=== PATIENT | female | born 1995 | race Hispanic/Latino ===

== ENCOUNTER 2019-01-23 21:17 | Emergency (ER) | payer OTHER ==
[2019-01-23 23:06] LABS: Urine Blood 2+ (NEG); Urine Glucose NEGATIVE (NEG); Urine Protein 1+ (NEG); Urine Specific Gravity 1.025 (1.005-1.030)
[2019-01-23] MEDS ORDERED: ONDANSETRON 4 MG/2 ML VIAL ONE (23:07)
[2019-01-23] MEDS ORDERED: NA CHLORIDE 0.9% 1,000 ML ONE (23:08)
[2019-01-23 23:10] LABS: Absolute Lymphocytes (CBC) 1.1 K/uL (0.7-4.9); Absolute Monocytes 0.6 K/uL (0.1-1.3); Absolute Neutrophil 4.3 K/uL (1.8-8.0); Basophils % 0.3 % (0-1.3); Eosinophils % 0.6 % (0-4.4); Hematocrit 45.5 % (36.0-45.0); Lymphocytes % 17.6 % (15.3-44.8); RBC Red Blood Cell Count 4.87 M/uL (3.86-4.86)
[2019-01-23 23:27] LABS: ALT/SGPT 31 U/L (12-78); AST/SGOT 35 U/L (15-37); Albumin 3.6 g/dL (3.4-5.0); Alkaline Phosphatase 114 U/L (45-117); BUN Blood Urea Nitrogen 12 mg/dL (7-18); Bicarbonate 27 mmol/L (21-32); Bilirubin Direct 0.1 mg/dL (0-0.2); Bilirubin Total 0.4 mg/dL (0.2-1.0); Glucose Level 89 mg/dL (74-106); Lipase 162 U/L (73-393); Potassium 3.6 mmol/L (3.5-5.1); Protein, Total 8.1 g/dL (6.4-8.2); Sodium Level 139 mmol/L (136-145)
[2019-01-23] MEDS ORDERED: DICYCLOMINE HCL 10 MG CAP ONE (23:58)
--- NOTE | 2019-01-24 00:15 | EDPHYS ---
Physician Documentation [facility] Name: Negar Bell Age: 24 yrs Sex: Female : 1995 Arrival Date: 01/23/2019 Time: 21:21 Bed 30 Private MD: ED Physician Vin Manjarrez HPI: 01/24 00:19 This 24 yrs old Female presents to ER via Ambulatory with complaints of kb Vomiting. 00:19 The patient presents to the emergency department with nausea, vomiting, diarrhea, kb abdominal pain. Onset: The symptoms/episode began/occurred 2 day(s) ago. Possible causes: unknown. The symptoms are aggravated by nothing. The symptoms are alleviated by nothing. Associated signs and symptoms: Pertinent positives: abdominal pain, diarrhea, nausea, vomiting. Severity of symptoms: At their worst the symptoms were moderate in the emergency department the symptoms are unchanged. The patient has not experienced similar symptoms in the past. The patient has not recently seen a physician. COUNTY ASSESSOR: 01/23 21:34 LMP 01/23/2019 aj1 Historical: - Allergies: 21:34 No Known Allergies; aj1 - Home Meds: 21:34 None [Active]; aj1 - PMHx: 21:34 None; aj1 - PSHx: 21:34 None; aj1 - Immunization history:: Flu vaccine is not up to date. - Social history:: Smoking status: Patient/guardian denies using tobacco. - Ebola Screening: : Patient denies travel to an Ebola-affected area in the 21 days before illness onset. ROS: 01/24 00:19 Constitutional: Negative for fever, chills, and weight loss, ENT: Negative for injury, kb pain, and discharge, Neck: Negative for injury, pain, and swelling, Cardiovascular: Negative for chest pain, palpitations, and edema, Respiratory: Negative for shortness of breath, cough, wheezing, and pleuritic chest pain, Back: Negative for injury and pain, : Negative for injury, bleeding, discharge, and swelling, MS/Extremity: Negative for injury and deformity, Skin: Negative for injury, rash, and discoloration, Neuro: Negative for headache, weakness, numbness, tingling, and seizure. Abdomen/GI: Positive for abdominal pain, nausea, vomiting, and diarrhea, Negative for constipation, abdominal cramps, abdominal distension, anorexia. Exam: 00:19 Constitutional: This is a well developed, well nourished patient who is awake, alert, kb and in no acute distress. Head/Face: Normocephalic, atraumatic. ENT: Nares patent. No nasal discharge, no septal abnormalities noted. Tympanic membranes are normal and external auditory canals are clear. Oropharynx with no redness, swelling, or masses, exudates, or evidence of obstruction, uvula midline. Mucous membranes moist. Neck: Trachea midline, no thyromegaly or masses palpated, and no cervical lymphadenopathy. Supple, full range of motion without nuchal rigidity, or vertebral point tenderness. No Meningismus. Chest/axilla: Normal chest wall appearance and motion. Nontender with no deformity. No lesions are appreciated. Cardiovascular: Regular rate and rhythm with a normal S1 and S2. No gallops, murmurs, or rubs. Normal PMI, no JVD. No pulse deficits. Respiratory: Lungs have equal breath sounds bilaterally, clear to auscultation and percussion. No rales, rhonchi or wheezes noted. No increased work of breathing, no retractions or nasal flaring. Skin: Warm, dry with normal turgor. Normal color with no rashes, no lesions, and no evidence of cellulitis. MS/ Extremity: Pulses equal, no cyanosis. Neurovascular intact. Full, normal range of motion. Neuro: Awake and alert, GCS 15, oriented to person, place, time, and situation. Cranial nerves II-XII grossly intact. Motor strength 5/5 in all extremities. Sensory grossly intact. Cerebellar exam normal. Normal gait. 00:19 Abdomen/GI: Inspection: abdomen appears normal, Bowel sounds: normal, in all quadrants, Palpation: soft, in all quadrants, mild abdominal tenderness, in the left upper quadrant and left lower quadrant. Vital Signs: 01/23 21:34 BP 122 / 83; Pulse 65; Resp 18; Temp 98.4; Pulse Ox 99% on R/A; Weight 58.51 kg (R); aj1 Height 5 ft. 0 in. (152.40 cm) (R); Pain 8/10; 01/24 00:30 BP 122 / 72; Pulse 68; Resp 16; Temp 98.2; Pulse Ox 99% ; rv 01/23 21:34 Body Mass Index 25.19 (58.51 kg, 152.40 cm) aj1 MDM: 01/23 22:05 Patient medically screened. kb 01/24 00:19 Data reviewed: vital signs, nurses notes. Data interpreted: Pulse oximetry: on room air kb is 99 %. Interpretation: normal. Counseling: I had a detailed discussion with the patient and/or guardian regarding: the historical points, exam findings, and any diagnostic results supporting the discharge/admit diagnosis, lab results, the need for outpatient follow up, a family practitioner, to return to the emergency department if symptoms worsen or persist or if there are any questions or concerns that arise at home. 01/23 22:33 Order name: Urine Dipstick--Ancillary (enter results); Complete Time: 23:11 mw2 01/23 22:33 Order name: Urine --Ancillary (enter results); Complete Time: 23:11 mw2 01/23 22:49 Order name: Basic Metabolic Panel; Complete Time: 23:30 kb 01/23 22:49 Order name: CBC with Diff; Complete Time: 23:13 kb 01/23 22:49 Order name: Hepatic Function; Complete Time: 23:30 kb 01/23 22:49 Order name: Lipase; Complete Time: 23:30 kb 01/23 22:49 Order name: IV Saline Lock; Complete Time: 23:06 kb 01/23 22:49 Order name: Labs collected and sent; Complete Time: 23:06 kb 01/23 23:30 Order name: PO challenge; Complete Time: 23:50 kb Administered Medications: 01/23 23:05 Drug: NS 0.9% 1000 ml Route: IV; Rate: 1000 ml; Site: right antecubital; rv 23:50 Follow up: IV Status: Completed infusion rv 23:06 Drug: Zofran 4 mg Route: IVP; Site: right antecubital; rv 23:50 Follow up: Response: Nausea is decreased rv 23:50 Drug: Bentyl 20 mg Route: PO; rv 01/24 00:30 Follow up: Response: No adverse reaction rv Disposition: 02:05 Co-signature as Attending Physician, Vin Manjarrez MD. gs Disposition: 01/24/19 00:13 Discharged to Home. Impression: Nausea and vomiting, Diarrhea, unspecified. - Condition is Stable. - Discharge Instructions: Food Choices to Help Relieve Diarrhea, Adult, Viral Gastroenteritis, Adult, [id number]. - Prescriptions for Bentyl 20 mg Oral Tablet - take 1 tablet by ORAL route every 6 hours As needed; 20 tablet. Zofran 4 mg Oral Tablet - take 1 tablet by ORAL route every 6 hours As needed; 20 tablet. - Medication Reconciliation Form, Thank You Letter, Antibiotic Education, Prescription Opioid Use form. - Follow up: Emergency Department; When: As needed; Reason: Worsening of condition. Follow up: Private Physician; When: 2 - 3 days; Reason: Recheck today's complaints, Continuance of care, Re-evaluation by your physician. Signatures: Dispatcher [employer] EDMS Larissa Trinh, KIM-C SECURITY ATTENDANT-Daniela Villalobos RN RN aj1 Vin Manjarrez MD MD gs Alberto Gamez RN RN rv Corrections: (The following items were deleted from the chart) 00:31 00:13 01/24/2019 00:13 Discharged to Home. Impression: Nausea and vomiting; Diarrhea, rv unspecified. Condition is Stable. Forms are Medication Reconciliation Form, Thank You Letter, Antibiotic Education, Prescription Opioid Use. Follow up: Emergency Department; When: As needed; Reason: Worsening of condition. Follow up: Private Physician; When: 2 - 3 days; Reason: Recheck today's complaints, Continuance of care, Re-evaluation by your physician. kb
--- NOTE | 2019-01-24 00:15 | ER ---
Nurse's Notes [facility] Name: Negar Bell Age: 24 yrs Sex: Female : 1995 Arrival Date: 01/23/2019 Time: 21:21 Bed 30 Private MD: Diagnosis: Nausea and vomiting;Diarrhea, unspecified Presentation: 01/23 21:32 Presenting complaint: Patient states: "Monday night I started having chills, but it aj1 really got bad Monday and then I ate one thing and I threw it up, and today the same thing I tried to eat little by little but I couldn't keep it down. I have a real bad stomach ache and a headache. I took ibuprofen but it didn't help" Denies fever. Transition of care: patient was not received from another setting of care. Onset of symptoms was January 21, 2018. Risk Assessment: Do you want to hurt yourself or someone else? Patient reports no desire to harm self or others. Initial Sepsis Screen: Does the patient meet any 2 criteria? No. Patient's initial sepsis screen is negative. Does the patient have a suspected source of infection? Yes: Acute abdominal pain. Care prior to arrival: None. 21:32 Method Of Arrival: Ambulatory aj1 21:32 Acuity: MURALI 3 aj1 Triage Assessment: 21:34 General: Appears in no apparent distress. comfortable, Behavior is calm, cooperative, aj1 appropriate for age. Pain: Complains of pain in epigastric area Pain currently is 8 out of 10 on a pain scale. Neuro: Level of Consciousness is awake, alert, obeys commands, Oriented to person, place, time, situation. Cardiovascular: Patient's skin is warm and dry. Respiratory: Airway is patent Respiratory effort is even, unlabored, Respiratory pattern is regular, symmetrical. GI: Reports upper abdominal pain, nausea, vomiting, Patient currently denies diarrhea. COUNCILMAN: 21:34 LMP 01/23/2019 aj1 Historical: - Allergies: 21:34 No Known Allergies; aj1 - Home Meds: 21:34 None [Active]; aj1 - PMHx: 21:34 None; aj1 - PSHx: 21:34 None; aj1 - Immunization history:: Flu vaccine is not up to date. - Social history:: Smoking status: Patient/guardian denies using tobacco. - Ebola Screening: : Patient denies travel to an Ebola-affected area in the 21 days before illness onset. Screenin:08 Abuse screen: Denies threats or abuse. Denies injuries from another. Nutritional rv screening: No deficits noted. Tuberculosis screening: No symptoms or risk factors identified. Fall Risk None identified. Assessment: 23:06 General: Appears in no apparent distress. comfortable, Behavior is calm, cooperative. rv Pain: Complains of pain in abdomen and epigastric area. Neuro: Level of Consciousness is awake, alert, obeys commands, Oriented to person, place, time, situation. Cardiovascular: Capillary refill < 3 seconds. Respiratory: Airway is patent. GI: Abdomen is flat, Reports nausea, vomiting. : No signs and/or symptoms were reported regarding the genitourinary system. EENT: No signs and/or symptoms were reported regarding the EENT system. Derm: Skin is intact. Musculoskeletal: No signs and/or symptoms reported regarding the musculoskeletal system. 23:51 Reassessment: Patient appears in no apparent distress at this time. Patient and/or rv family updated on plan of care and expected duration. Pain level reassessed. Patient is alert/active/playful, equal unlabored respirations, skin warm/dry/pink. PO CHALLENGE TOLERATED. Patient states feeling better. Patient states symptoms have improved. Vital Signs: 21:34 BP 122 / 83; Pulse 65; Resp 18; Temp 98.4; Pulse Ox 99% on R/A; Weight 58.51 kg (R); aj1 Height 5 ft. 0 in. (152.40 cm) (R); Pain 8/10; 01/24 00:30 BP 122 / 72; Pulse 68; Resp 16; Temp 98.2; Pulse Ox 99% ; rv 01/23 21:34 Body Mass Index 25.19 (58.51 kg, 152.40 cm) aj1 ED Course: 01/23 21:21 Patient arrived in ED. es 21:33 Larissa Trinh FNP-C is PHCP. kb 21:33 Vin Manjarrez MD is Attending Physician. kb 21:34 Triage completed. aj1 21:34 Arm band placed on Patient placed in waiting room, Patient notified of wait time. aj1 22:36 Alberto Gamez, RN is Primary Nurse. rv 23:00 Inserted saline lock: 20 gauge in right antecubital area, using aseptic technique. rv Blood collected. 23:08 Patient has correct armband on for positive identification. Bed in low position. Call rv light in reach. Side rails up X 1. Adult w/ patient. Pulse ox on. NIBP on. 01/24 00:31 No provider procedures requiring assistance completed. IV discontinued, intact, rv bleeding controlled, No redness/swelling at site. Pressure dressing applied. Administered Medications: 01/23 23:05 Drug: NS 0.9% 1000 ml Route: IV; Rate: 1000 ml; Site: right antecubital; rv 23:50 Follow up: IV Status: Completed infusion rv 23:06 Drug: Zofran 4 mg Route: IVP; Site: right antecubital; rv 23:50 Follow up: Response: Nausea is decreased rv 23:50 Drug: Bentyl 20 mg Route: PO; rv 01/24 00:30 Follow up: Response: No adverse reaction rv Outcome: 00:13 Discharge ordered by . kb 00:31 Discharged to home ambulatory. rv 00:31 Condition: improved 00:31 Discharge instructions given to patient, family, Instructed on discharge instructions, follow up and referral plans. medication usage, Demonstrated understanding of instructions, follow-up care, medications, Prescriptions given X 2. 00:31 Patient left the ED. rv Signatures: Larissa Trinh, GEOSCIENCES PROFESSOR-C GEOSCIENCES PROFESSOR-Daniela Villalobos, RN RN ajRosa Maria Davis Ronaldo, RN RN rv
== END 2019-01-24 00:31 | disposition home or self-care (01) ==
LOC: ER 21:17
DX: R11.2 Nausea with vomiting, unspecified (principal); R19.7 Diarrhea, unspecified
CPT/HCPCS: 36415; 80048; 80076; 81003; 81025; 83690; 85025; 96361; 96374; 99284; J2405; J7030

== ENCOUNTER 2021-04-06 19:53 | Emergency (ER) | payer OTHER ==
--- OUTSIDE RECORDS SUMMARY | 2021-04-06 19:55 | XMS REPORT | Continuity of Care Document ---
:1995 Author Organization [facility] t Address [address] [place] [address] Care Team Providers Name Role Phone Carlos ORTIZ Attending Clinician Omid Loyd MD Attending Clinician Silvio PERSON Attending Clinician Ultrasound, M[facility] Attending Clinician Unavailable Silvio PERSON Admitting Clinician Problems This patient has no known problems. Allergies, Adverse Reactions, Alerts This patient has no known allergies or adverse reactions. Medications This patient has no known medications. Procedures This patient has no known procedures. Encounters Start End Encounter Admission Attending Care Care Encounter Source Date/Time Date/Time Type Type Clinicians Facility Department ID 2021-03-31 2021-03-31 Routine KIRBY Gonzalez [id number] 11:13:34 12:14:41 Anna Marie Lubin [id number] Visit [place] [id number] [facility] [phone] [address] 2021-03-29 2021-03-29 Hospital Leigh Loyd [facility] [id number] 13:54:00 16:10:00 Encounter Pratima Anguiano [id number] [place] [id number] [place] [id number] [facility] 2021-03-29 2021-03-29 Telephone Leigh Loyd [facility] [id number] 00:00:00 00:00:00 [place] [id number] [place] [id number] [facility] [phone] [address] 2021-03-18 2021-03-18 Public Relations Account Executive Ultrasound, [facility] [id number] 09:58:42 10:28:42 Visit Adc [facility] [place] [id number] [place] [id number] [facility] [phone] [address] 2021-03-17 2021-03-17 Routine Loyd, Leigh [facility] [id number] 15:29:16 16:15:59 [place] [id number] Visit [place] [id number] [facility] [phone] [address] 2021-03-03 2021-03-03 Routine [place], [facility] [id number] 12:59:15 13:33:49 Anna Marie [place] [id number] Visit [place] [id number] [facility] [phone] [address] Results This patient has no known results.
--- NOTE | 2021-04-06 22:12 | EDPHYS ---
Physician Documentation [facility] Name: Negar Bell Age: 26 yrs Sex: Female : 1995 Arrival Date: 04/06/2021 Time: 19:56 Bed External Waiting Private MD: ED Physician MDM: 04/06 20:11 Patient medically screened. rn 20:13 ED course: Pt taken to L\T\D given 39 weeks and for monitoring.. rn Administered Medications: No medications were administered Disposition Summary: 04/06/21 22:11 Eloped Disposition: Before Triage bb Reason: (see nurse's notes) bb Signatures: Iwona Hughes RN RN bb Kevin Agarwal MD MD rn
--- NOTE | 2021-04-06 22:12 | ER ---
Nurse's Notes [facility] Name: Negar Bell Age: 26 yrs Sex: Female : 1995 Arrival Date: 04/06/2021 Time: 19:56 Bed External Waiting Private MD: Diagnosis: Presentation: 04/06 20:15 Note pt sent to L\T\D. bb ED Course: 19:56 Patient arrived in ED. ag3 20:11 Kevin Agarwal MD is Attending Physician. rn 20:20 Jay Viramontes PA is PHCP. cp 20:20 Kevin Agarwal MD is Attending Physician. cp Administered Medications: No medications were administered Outcome: 22:11 Patient left the ED. bb Signatures: Iwona Hughes RN RN Kevin Ku MD MD rn Page, Corey, PA PA cp Glenis Fatima ag3
== END 2021-04-06 22:11 | disposition left against medical advice (07) ==
LOC: ER 19:53
DX: Z02.9 Encounter for administrative examinations, unspecified (principal)

== ENCOUNTER → 2023-09-07 | Emergency (ER) | payer OTHER, SELFPAY ==
[~2023-09-07] MED LIST: ACETAMINOPHEN 500 MG TAB ONE; NA CHLORIDE 0.9% 1,000 ML ONE
--- OUTSIDE RECORDS SUMMARY | 2023-09-07 19:23 | XMS REPORT | Continuity of Care Document ---
Author Name Unknown Address [address] [facility] [address] [place] [address] [facility] Address [address] [facility] [address] [place] [address] Care Team Providers Care Body Service Team Member Name Role Phone Pcp, Patient Does Not Have A Primary Care Physic bill GLADYS KIMBALL Attending Clinician Unavailable Anna Marie Houston PA-C Attending Clinician [phone] ANNA MARIE HOUSTON Attending Clinician Unavailable Gladys Kimball MD Attending Clinician [phone] [facility] Attending Clinician Unavailable Doctor Unassigned, [place] Attending Clinician U álvaroailLINDSAY Pack Attending Clinician UnavailLINDSAY Lord Attending Clinician Unavailcasie garcía 2, [facility] Attending Clinician Unavailable Ultrasound, [facility] Attending Clinician Unavaila ricky Ma MD, Carpio Attending Clinician + GREGG BARR Attending Clinician Unafranchesca Don RN, Beverley Delarosa Attending Clinician Unavailab JUAN Woodard Attending Clinician Unavailable Juan Moreno Attending Clinician [phone] Ultrasound, [facility] Attending Clinician UnavailBoubacar Mishra MD Attending Clinician [phone] BOUBACAR MCCARTHY Attending Clinician Unavailable Pob, [facility] Main Attending Clinician Unavailabl e Jimbo Anguiano MD Attending Clinician [phone] JIMBO ANGUIANO Attending Clinician Unavailable YOHANNES BURRELL Attending Clinician Unavailable Yohannes Manzanares Attending Clinician [phone] Georgiana Roberts MD, Leonard Attending Clinician [phone] Gayathri Pablo MD Attending Clinician [phone] Clementine Hare MD Attending Clinician GLADYS KIMBALL Admitting Clinician Unavailable JIMBO ANGUIANO Admitting Clinician Unavailable Gladys Kimball MD Admitting Clinician [phone] YOHANNES BURRELL Admitting Clinician Unavailable Jimbo Anguiano MD Admitting Clinician [phone] Payers Payer Name Policy Type Policy Number Effective Date Expirati on Date Source [facility] [id number] 2020 00:00:00 CIG[employer] II [id number] 2020 00:00:00 MEDICAID [place] [id number] 2020 00:00:00 Problems Condition Name Condition Details Condition Category Status Onset Date Resolution Date Last Treatment Date Treating Clinician Comments Source Normal labor Normal labor Disease Active 5-15 00:00: 00 [facility] Upper respirator y tract infection, unspecifie d type Upper respirator y tract infection, unspecifie d type Disease Active 3-23 00:00: 00 [facility] Acute bilateral low back pain with left-sided sciatica Acute bilateral low back pain with left-sided sciatica Disease Active 2021-09 2-06 00:00: 00 [facility] High risk , antepartum High risk , antepartum Disease Active 2021-09 0-10 00:00: 00 [facility] Nausea and vomiting during prior to 22 weeks gestation Nausea and vomiting during prior to 22 weeks gestation Disease Active 2021-09 0-10 00:00: 00 [facility] Encounter for screening for maternal depression Encounter for screening for maternal depression Disease Active 2020-09- 00:00: 00 [facility] Liveborn infant, of lombardi , born in hospital by vaginal delivery Liveborn , of lombardi , born in hospital by vaginal delivery Disease Active 8- 00:00: 00 [facility] 41 weeks gestation of 41 weeks gestation of Disease Active 8-20 00:00: 00 [facility] Obesity (BMI 30-39.9) Obesity (BMI 30-39.9) Disease Active 7-28 00:00: 00 [facility] Allergies, Adverse Reactions, Alerts Allergy Name Allergy Type Status Severity Reaction(s) Onset Date Inactive Date Treating Clinician Comments Source NO KNOWN ALLERGIE S Drug Class Active [facility] Social History Social Habit Start Date Stop Date Quantity Comments Source ASSERTION 2022-04-27 00:00:00 [facility] Exposure to SARS-CoV-2 (event) 2023-01-20 00:00:00 2023-01-30 06:12:00 Not sure [facility] History of Social function 2022-01-25 00:00:00 2022-01-25 00:00:00 [facility] Alcohol intake 2020-12-09 00:00:00 2020-12-09 00:00:00 Current drinker of alcohol (finding) [facility] Tobacco use and exposure 2020-09-23 00:00:00 2020-09-23 00:00:00 Smokeless tobacco non-user [facility] Alcohol Comment 2020-09-23 00:00:00 2020-09-23 00:00:00 Social Drinker [facility] History SDOH Alcohol Frequency 2020-09-23 00:00:00 2020-09-23 00:00:00 99 [facility] History SDOH Alcohol Std Drinks 2020-09-23 00:00:00 2020-09-23 00:00:00 99 [facility] History SDOH Alcohol Binge 2020-09-23 00:00:00 2020-09-23 00:00:00 99 [facility] Sex Assigned At 1995 00:00:00 1995 00:00:00 [facility] Smoking Status Start Date Stop Date Source Never smoked tobacco [facility] Medications Ordered Medication Name Filled Medication Name Start Date Stop Date Current Medication? Ordering Clinician Indication Dosage Frequency Signature (SIG) Comments Components Source PNV no.95/selam fum/folic ac ( ORAL) 01-30 17:09: 28 01-30 00:00 :00 No Take by mouth. [facility] rho(D) immune globulin (RHOGAM) syringe 300 mcg 01-30 10:02: 00 Yes 300ug 300 mcg, Intramuscu lar, ONCE, For 1 dose, Conditiona l, Routine [facility] witch Rafita (TUCKS) 50 % topical pad 01-30 10:01: 55 Yes Topical, Q4HPRN, Starting on Mon01/30/23 at 0501, Until Discontinu ed, Routine, rectal/hem orrhoidal pain [facility] HYDROcodone -acetaminop hen (NORCO 5) 5-325 mg tablet 1 tablet 01-30 10:01: 55 Yes 1{tbl} 1 tablet, Oral, Q6HPRN, Starting on Mon01/30/23 at 0501, Until Discontinu ed, Routine, Pain (scale 7-10) [facility] ibuprofen (IBU) tablet 600 mg 01-30 10:01: 55 Yes 600mg 600 mg, Oral, Q6HPRN, Starting on Mon01/30/23 at 0501, Until Discontinu ed, Routine, Pain (scale 4-6) [facility] acetaminoph en (TYLENOL) tablet 650 mg 01-30 10:01: 55 Yes 650mg 650 mg, Oral, Q6HPRN, Starting on Mon01/30/23 at 0501, Until Discontinu ed, Routine, Pain (scale 1-3) [facility] diphenhydrA MINE (BENADRYL) tablet 25 mg 01-30 10:01: 55 Yes 25mg 25 mg, Oral, Q6HPRN, Starting on Mon01/30/23 at 0501, Until Discontinu ed, Routine, Sleep, Itching [facility] ondansetron (ZOFRAN (PF)) injection 4 mg 01-30 10:01: 55 Yes 4mg 4 mg, Slow IV Push, Q8HPRN, Starting on Mon01/30/23 at 0501, Until Discontinu ed, Routine, Nausea and Vomiting (N/V) [facility] simethicone (GAS RELIEF (SIMETHICON E)) chewable tablet 160 mg 01-30 10:01: 55 Yes 160mg 160 mg, Oral, PC+HSPRN, Starting on Mon01/30/23 at 0501, Until Discontinu ed, Routine, Gas [facility] docusate (COLACE) capsule 200 mg 01-30 10:01: 55 Yes 200mg 200 mg, Oral, QDAILYPRN, Starting on Mon01/30/23 at 0501, Until Discontinu ed, Routine, Constipati on [facility] magnesium hydroxide (MILK OF MAGNESIA) 400 mg/5 mL suspension 30 mL 01-30 10:01: 55 Yes 30mL 30 mL, Oral, QDAILYPRN, Starting on Mon01/30/23 at 0501, Until Discontinu ed, Routine, Constipati on [facility] benzocaine- menthol (DERMOPLAST ) 20-0.5 % topical spray 01-30 10:01: 55 Yes Topical, PRN, Starting on Mon01/30/23 at 0501, Until Discontinu ed, Routine, Perineum discomfort [facility] oxytocin (PITOCIN) 30 units in NS 500 mL IV infusion 01-30 09:45: 07 01-30 10:01 :59 No 600mL/h 600 mL/hr, IV Infusion, PRN, For post delivery uterine atony., Starting on Mon01/30/[address] at 600 mL/hr for 1 hr then 150 mL/hr for 1 hr.
[facility] FENTanyl PF (SUBLIMAZE (PF)) injection 50 mcg 01-30 09:45: 00 01-30 09:36 :00 No 50ug 50 mcg, Slow IV Push, ONCE NOW, 1 dose, On Mon01/30/23 at 0445, Routine [facility] D5W-LR IV infusion 1,000 mL 01-30 08:34: 04 01-30 10:01 :59 No 1000mL at 1-125 mL/hr, IV Infusion, TITRATE, Starting on Mon01/30/23 at 0334, Until Mon01/30/23 at 0501, Routine [facility] vitamin w/FA tablet 01-30 00:00: 00 Yes [id number] 1{tbl} Take 1 tablet by mouth in the morning. [facility] docusate 100 mg capsule 01-30 00:00: 00 Yes [id number] 200mg Take 2 capsules by mouth once daily as needed for Constipati on. [facility] ferrous sulfate 325 mg (65 mg iron) tablet 01-30 00:00: 00 Yes [id number] 325mg Take 1 tablet by mouth in the morning and 1 tablet in the evening. [facility] ibuprofen 600 mg tablet 01-30 00:00: 00 Yes [id number] 600mg Take 1 tablet by mouth every 6 (six) hours as needed (Pain). Take with food or milk. [facility] vitamin w/FA tablet 01-30 00:00: 00 Yes [id number] 1{tbl} Take 1 tablet by mouth in the morning. [facility] docusate 100 mg capsule 01-30 00:00: 00 Yes [id number] 200mg Take 2 capsules by mouth once daily as needed for Constipati on. [facility] ferrous sulfate 325 mg (65 mg iron) tablet 01-30 00:00: 00 Yes [id number] 325mg Take 1 tablet by mouth in the morning and 1 tablet in the evening. [facility] ibuprofen 600 mg tablet 01-30 00:00: 00 Yes [id number] 600mg Take 1 tablet by mouth every 6 (six) hours as needed (Pain). Take with food or milk. [facility] ferrous sulfate 325 mg (65 mg iron) tablet 10 00:00: 00 Yes [id number] 325mg Take 1 tablet by mouth every morning and evening. [facility] ferrous sulfate 325 mg (65 mg iron) tablet 10 00:00: 00 Yes [id number] 325mg Take 1 tablet by mouth every morning and evening. [facility] ferrous sulfate 325 mg (65 mg iron) tablet 10 00:00: 00 Yes [id number] 325mg Take 1 tablet by mouth every morning and evening. [facility] ferrous sulfate 325 mg (65 mg iron) tablet 10 00:00: 00 01-30 00:00 :00 No [id number] 325mg Take 1 tablet by mouth every morning and evening. [facility] PNV no.95/selam us fum/folic ac ( ORAL) 01-05 14:04: 07 Yes Take by mouth. [facility] PNV no.95/selam us fum/folic ac ( ORAL) 01-05 14:04: 07 Yes Take by mouth. [facility] PNV no.95/selam us fum/folic ac ( ORAL) 01-05 14:04: 07 Yes Take by mouth. [facility] PNV no.95/selam us fum/folic ac ( ORAL) 01-05 14:04: 07 Yes Take by mouth. [facility] PNV no.95/selam us fum/folic ac ( ORAL) 01-05 14:04: 07 Yes Take by mouth. [facility] PNV no.95/selam us fum/folic ac ( ORAL) 01-05 14:04: 07 Yes Take by mouth. [facility] PNV no.95/selam us fum/folic ac ( ORAL) 01-05 14:04: 07 Yes Take by mouth. [facility] PNV no.95/selam us fum/folic ac ( ORAL) 01-05 08:51: 19 01-05 00:00 :00 No Take by mouth. [facility] FERROUS SULFATE 325 mg (65 mg iron) tablet 01-05 00:00: 00 Yes TAKE 1 TABLET BY MOUTH IN THE MORNING AND IN THE EVENING [facility] FERROUS SULFATE 325 mg (65 mg iron) tablet 01-05 00:00: 00 Yes TAKE 1 TABLET BY MOUTH IN THE MORNING AND IN THE EVENING [facility] FERROUS SULFATE 325 mg (65 mg iron) tablet 01-05 00:00: 00 Yes TAKE 1 TABLET BY MOUTH IN THE MORNING AND IN THE EVENING [facility] FERROUS SULFATE 325 mg (65 mg iron) tablet 01-05 00:00: 00 Yes TAKE 1 TABLET BY MOUTH IN THE MORNING AND IN THE EVENING [facility] FERROUS SULFATE 325 mg (65 mg iron) tablet 01-05 00:00: 00 Yes TAKE 1 TABLET BY MOUTH IN THE MORNING AND IN THE EVENING [facility] FERROUS SULFATE 325 mg (65 mg iron) tablet 01-05 00:00: 00 01-25 00:00 :00 No TAKE 1 TABLET BY MOUTH IN THE MORNING AND IN THE EVENING [facility] ferrous sulfate (IRON, FERROUS SULFATE,) 325 mg (65 mg iron) tablet 12-23 00:00: 00 Yes [id number] 325mg Take 1 tablet by mouth in the morning and 1 tablet in the evening. [facility] ferrous sulfate (IRON, FERROUS SULFATE,) 325 mg (65 mg iron) tablet 12-23 00:00: 00 Yes [id number] 325mg Take 1 tablet by mouth in the morning and 1 tablet in the evening. [facility] ferrous sulfate (IRON, FERROUS SULFATE,) 325 mg (65 mg iron) tablet 12-23 00:00: 00 01-05 00:00 :00 No [id number] 325mg Take 1 tablet by mouth in the morning and 1 tablet in the evening. [facility] PNV no.95/selam us fum/folic ac ( ORAL) 3 00:15: 50 Yes Take by mouth. [facility] PNV no.95/selam us fum/folic ac ( ORAL) 12-07 00:15: 50 Yes Take by mouth. [facility] PNV no.95/selam us fum/folic ac ( ORAL) 12-07 00:15: 50 Yes Take by mouth. [facility] PNV no.95/selam us fum/folic ac ( ORAL) 12-07 00:15: 50 Yes Take by mouth. [facility] PNV no.95/selam us fum/folic ac ( ORAL) 12-07 00:15: 50 Yes Take by mouth. [facility] PNV no.95/selam us fum/folic ac ( ORAL) 12-07 00:15: 50 Yes Take by mouth. [facility] PNV no.95/selam us fum/folic ac ( ORAL) 12-07 00:15: 50 Yes Take by mouth. [facility] PNV no.95/selam us fum/folic ac ( ORAL) 12-07 00:15: 50 Yes Take by mouth. [facility] PNV no.95/selam us fum/folic ac ( ORAL) 12-07 00:15: 50 Yes Take by mouth. [facility] PNV no.95/selam us fum/folic ac ( ORAL) 12-07 00:15: 50 Yes Take by mouth. [facility] PNV no.95/selam us fum/folic ac ( ORAL) 2021-09 11:14: 32 Yes Take by mouth. [facility] PNV no.95/selam us fum/folic ac ( ORAL) 2021-09 11:14: 32 Yes Take by mouth. [facility] PNV no.95/selam us fum/folic ac ( ORAL) 2021-09 11:14: 32 Yes Take by mouth. [facility] PNV no.95/selam us fum/folic ac ( ORAL) 2021-09 11:14: 32 Yes Take by mouth. [facility] PNV no.95/selam us fum/folic ac ( ORAL) 2021-09 11:14: 32 Yes Take by mouth. [facility] PNV no.95/selam us fum/folic ac ( ORAL) 2021-09 11:14: 32 Yes Take by mouth. [facility] PNV no.95/selam us fum/folic ac ( ORAL) 2021-09 11:14: 32 Yes Take by mouth. [facility] PNV no.95/selam us fum/folic ac ( ORAL) 2021-09 11:14: 32 Yes Take by mouth. [facility] PNV no.95/selam us fum/folic ac ( ORAL) 2021-09 11:14: 32 Yes Take by mouth. [facility] No known medications 2021-09 11:06: 11 No No known medication s [facility] No known medications 2021-09 0 22:07: 51 No No known medication s [facility] No known medications 2021-09 010 22:07: 51 No No known medication s [facility] vitamin w/FA tablet 05-10 00:00: 00 Yes [id number] 1{tbl} Take 1 tablet by mouth daily. [facility] docusate calcium 240 mg capsule 05-10 00:00: 00 Yes [id number] 240mg Take 1 capsule by mouth once daily as needed for Constipati on. [facility] ferrous sulfate 325 mg (65 mg iron) tablet 05-10 00:00: 00 Yes [id number] 325mg Take 1 tablet by mouth 2 (two) times daily. [facility] ibuprofen 600 mg tablet 05-10 00:00: 00 Yes [id number] 600mg Take 1 tablet by mouth every 6 (six) hours as needed (Pain). Take with food or milk. [facility] vitamin w/FA tablet 05-10 00:00: 00 Yes [id number] 1{tbl} Take 1 tablet by mouth daily. [facility] docusate calcium 240 mg capsule 05-10 00:00: 00 Yes [id number] 240mg Take 1 capsule by mouth once daily as needed for Constipati on. [facility] ferrous sulfate 325 mg (65 mg iron) tablet 05-10 00:00: 00 Yes [id number] 325mg Take 1 tablet by mouth 2 (two) times daily. [facility] ibuprofen 600 mg tablet 05-10 00:00: 00 Yes [id number] 600mg Take 1 tablet by mouth every 6 (six) hours as needed (Pain). Take with food or milk. [facility] vitamin w/FA tablet 05-10 00:00: 00 06-27 00:00 :00 No [id number] 1{tbl} Take 1 tablet by mouth daily. [facility] docusate calcium 240 mg capsule 05-10 00:00: 00 06-27 00:00 :00 No [id number] 240mg Take 1 capsule by mouth once daily as needed for Constipati on. [facility] ferrous sulfate 325 mg (65 mg iron) tablet 05-10 00:00: 00 06-27 00:00 :00 No [id number] 325mg Take 1 tablet by mouth 2 (two) times daily. [facility] ibuprofen 600 mg tablet 05-10 00:00: 00 06-27 00:00 :00 No [id number] 600mg Take 1 tablet by mouth every 6 (six) hours as needed (Pain). Take with food or milk. [facility] Immunizations Ordered Immunization Name Filled Immunization Name Date Status Comments Source Influenza Virus Vaccine Quad IM, Preserv and ABX Free 6 MO-64 YRS 2022-06-27 00:00:00 Completed [facility] Influenza Virus Vaccine Quad IM, Preserv and ABX Free 6 MO-64 YRS 2022-06-27 00:00:00 Completed [facility] Influenza Virus Vaccine Quad IM, Preserv and ABX Free 6 MO-64 YRS 2022-06-27 00:00:00 Completed [facility] Influenza Virus Vaccine Quad IM, Preserv and ABX Free 6 MO-64 YRS 2022-06-27 00:00:00 Completed [facility] Influenza Virus Vaccine Quad IM, Preserv and ABX Free 6 MO-64 YRS 2022-06-27 00:00:00 Completed [facility] Influenza Virus Vaccine Quad IM, Preserv and ABX Free 6 MO-64 YRS 2022-06-27 00:00:00 Completed [facility] Influenza Virus Vaccine Quad IM, Preserv and ABX Free 6 MO-64 YRS 2022-06-27 00:00:00 Completed [facility] Influenza Virus Vaccine Quad IM, Preserv and ABX Free 6 MO-64 YRS 2022-06-27 00:00:00 Completed [facility] Influenza Virus Vaccine Quad IM, Preserv and ABX Free 6 MO-64 YRS 2022-06-27 00:00:00 Completed [facility] Influenza Virus Vaccine Quad IM, Preserv and ABX Free 6 MO-64 YRS 2022-06-27 00:00:00 Completed [facility] Influenza Virus Vaccine Quad IM, Preserv and ABX Free 6 MO-64 YRS 2022-06-27 00:00:00 Completed [facility] Influenza Virus Vaccine Quad IM, Preserv and ABX Free 6 MO-64 YRS 2022-06-27 00:00:00 Completed [facility] Influenza Virus Vaccine Quad IM, Preserv and ABX Free 6 MO-64 YRS 2022-06-27 00:00:00 Completed [facility] Influenza Virus Vaccine Quad IM, Preserv and ABX Free 6 MO-64 YRS 2022-06-27 00:00:00 Completed [facility] Influenza Virus Vaccine Quad IM, Preserv and ABX Free 6 MO-64 YRS 2022-06-27 00:00:00 Completed [facility] Influenza Virus Vaccine Quad IM, Preserv and ABX Free 6 MO-64 YRS 2022-06-27 00:00:00 Completed [facility] Influenza Virus Vaccine Quad IM, Preserv and ABX Free 6 MO-64 YRS 2022-06-27 00:00:00 Completed [facility] Influenza Virus Vaccine Quad IM, Preserv and ABX Free 6 MO-64 YRS 2022-06-27 00:00:00 Completed [facility] Influenza Virus Vaccine Quad IM, Preserv and ABX Free 6 MO-64 YRS 2022-06-27 00:00:00 Completed [facility] Influenza Virus Vaccine Quad IM, Preserv and ABX Free 6 MO-64 YRS 2022-06-27 00:00:00 Completed [facility] Influenza Virus Vaccine Quad IM, Preserv and ABX Free 6 MO-64 YRS 2022-06-27 00:00:00 Completed [facility] Influenza Virus Vaccine Quad IM, Preserv and ABX Free 6 MO-64 YRS 2022-06-27 00:00:00 Completed [facility] Influenza Virus Vaccine Quad IM, Preserv and ABX Free 6 MO-64 YRS 2022-06-27 00:00:00 Completed [facility] Influenza Virus Vaccine Quad IM, Preserv and ABX Free 6 MO-64 YRS 2022-06-27 00:00:00 Completed [facility] Influenza Virus Vaccine Quad IM, Preserv and ABX Free 6 MO-64 YRS 2022-06-27 00:00:00 Completed [facility] Influenza Virus Vaccine Quad IM, Preserv and ABX Free 6 MO-64 YRS 2022-06-27 00:00:00 Completed [facility] Influenza Virus Vaccine Quad IM, Preserv and ABX Free 6 MO-64 YRS 2022-06-27 00:00:00 Completed [facility] Influenza Virus Vaccine Quad IM, Preserv and ABX Free 6 MO-64 YRS 2022-06-27 00:00:00 Completed [facility] Influenza Virus Vaccine Quad IM, Preserv and ABX Free 6 MO-64 YRS 2022-06-27 00:00:00 Completed [facility] Influenza Virus Vaccine Quad IM, Preserv and ABX Free 6 MO-64 YRS 2022-06-27 00:00:00 Completed [facility] Influenza Virus Vaccine Quad IM, Preserv and ABX Free 6 MO-64 YRS 2022-06-27 00:00:00 Completed [facility] Influenza Virus Vaccine Quad IM, Preserv and ABX Free 6 MO-64 YRS 2022-06-27 00:00:00 Completed [facility] Influenza Virus Vaccine Quad IM, Preserv and ABX Free 6 MO-64 YRS 2022-06-27 00:00:00 Completed [facility] SARS-COV-2 COVID-19 PFIZER VACCINE 2021-12-16 00:00:00 Completed [facility] SARS-COV-2 COVID-19 PFIZER VACCINE 2021-12-16 00:00:00 Completed [facility] SARS-COV-2 COVID-19 PFIZER VACCINE 2021-12-16 00:00:00 Completed [facility] SARS-COV-2 COVID-19 PFIZER VACCINE 2021-12-16 00:00:00 Completed [facility] SARS-COV-2 COVID-19 PFIZER VACCINE 2021-12-16 00:00:00 Completed [facility] SARS-COV-2 COVID-19 PFIZER VACCINE 2021-12-16 00:00:00 Completed [facility] SARS-COV-2 COVID-19 PFIZER VACCINE 2021-12-16 00:00:00 Completed [facility] SARS-COV-2 COVID-19 PFIZER VACCINE 2021-12-16 00:00:00 Completed [facility] SARS-COV-2 COVID-19 PFIZER VACCINE 2021-12-16 00:00:00 Completed [facility] SARS-COV-2 COVID-19 PFIZER VACCINE 2021-12-16 00:00:00 Completed [facility] SARS-COV-2 COVID-19 PFIZER VACCINE 2021-12-16 00:00:00 Completed [facility] SARS-COV-2 COVID-19 PFIZER VACCINE 2021-12-16 00:00:00 Completed [facility] SARS-COV-2 COVID-19 PFIZER VACCINE 2021-12-16 00:00:00 Completed [facility] SARS-COV-2 COVID-19 PFIZER VACCINE 2021-12-16 00:00:00 Completed [facility] SARS-COV-2 COVID-19 PFIZER VACCINE 2021-12-16 00:00:00 Completed [facility] SARS-COV-2 COVID-19 PFIZER VACCINE 2021-12-16 00:00:00 Completed [facility] SARS-COV-2 COVID-19 PFIZER VACCINE 2021-12-16 00:00:00 Completed [facility] SARS-COV-2 COVID-19 PFIZER VACCINE 2021-12-16 00:00:00 Completed [facility] SARS-COV-2 COVID-19 PFIZER VACCINE 2021-12-16 00:00:00 Completed [facility] SARS-COV-2 COVID-19 PFIZER VACCINE 2021-12-16 00:00:00 Completed [facility] SARS-COV-2 COVID-19 PFIZER VACCINE 2021-12-16 00:00:00 Completed [facility] SARS-COV-2 COVID-19 PFIZER VACCINE 2021-12-16 00:00:00 Completed [facility] SARS-COV-2 COVID-19 PFIZER VACCINE 2021-12-16 00:00:00 Completed [facility] SARS-COV-2 COVID-19 PFIZER VACCINE 2021-12-16 00:00:00 Completed [facility] SARS-COV-2 COVID-19 PFIZER VACCINE 2021-12-16 00:00:00 Completed [facility] SARS-COV-2 COVID-19 PFIZER VACCINE 2021-12-16 00:00:00 Completed [facility] SARS-COV-2 COVID-19 PFIZER VACCINE 2021-12-16 00:00:00 Completed [facility] SARS-COV-2 COVID-19 PFIZER VACCINE 2021-12-16 00:00:00 Completed [facility] SARS-COV-2 COVID-19 PFIZER VACCINE 2021-12-16 00:00:00 Completed [facility] SARS-COV-2 COVID-19 PFIZER VACCINE 2021-12-16 00:00:00 Completed [facility] SARS-COV-2 COVID-19 PFIZER VACCINE 2021-12-16 00:00:00 Completed [facility] SARS-COV-2 COVID-19 PFIZER VACCINE 2021-12-16 00:00:00 Completed [facility] SARS-COV-2 COVID-19 PFIZER VACCINE 2021-12-16 00:00:00 Completed [facility] SARS-COV-2 COVID-19 PFIZER VACCINE 2021-12-16 00:00:00 Completed [facility] SARS-COV-2 COVID-19 PFIZER VACCINE 2021-12-16 00:00:00 Completed [facility] SARS-COV-2 COVID-19 PFIZER VACCINE 2021-11-19 00:00:00 Completed [facility] SARS-COV-2 COVID-19 PFIZER VACCINE 2021-11-19 00:00:00 Completed [facility] SARS-COV-2 COVID-19 PFIZER VACCINE 2021-11-19 00:00:00 Completed [facility] SARS-COV-2 COVID-19 PFIZER VACCINE 2021-11-19 00:00:00 Completed [facility] SARS-COV-2 COVID-19 PFIZER VACCINE 2021-11-19 00:00:00 Completed [facility] SARS-COV-2 COVID-19 PFIZER VACCINE 2021-11-19 00:00:00 Completed [facility] SARS-COV-2 COVID-19 PFIZER VACCINE 2021-11-19 00:00:00 Completed [facility] SARS-COV-2 COVID-19 PFIZER VACCINE 2021-11-19 00:00:00 Completed [facility] SARS-COV-2 COVID-19 PFIZER VACCINE 2021-11-19 00:00:00 Completed [facility] SARS-COV-2 COVID-19 PFIZER VACCINE 2021-11-19 00:00:00 Completed [facility] SARS-COV-2 COVID-19 PFIZER VACCINE 2021-11-19 00:00:00 Completed [facility] SARS-COV-2 COVID-19 PFIZER VACCINE 2021-11-19 00:00:00 Completed [facility] SARS-COV-2 COVID-19 PFIZER VACCINE 2021-11-19 00:00:00 Completed [facility] SARS-COV-2 COVID-19 PFIZER VACCINE 2021-11-19 00:00:00 Completed [facility] SARS-COV-2 COVID-19 PFIZER VACCINE 2021-11-19 00:00:00 Completed [facility] SARS-COV-2 COVID-19 PFIZER VACCINE 2021-11-19 00:00:00 Completed [facility] SARS-COV-2 COVID-19 PFIZER VACCINE 2021-11-19 00:00:00 Completed [facility] SARS-COV-2 COVID-19 PFIZER VACCINE 2021-11-19 00:00:00 Completed [facility] SARS-COV-2 COVID-19 PFIZER VACCINE 2021-11-19 00:00:00 Completed [facility] SARS-COV-2 COVID-19 PFIZER VACCINE 2021-11-19 00:00:00 Completed [facility] SARS-COV-2 COVID-19 PFIZER VACCINE 2021-11-19 00:00:00 Completed [facility] SARS-COV-2 COVID-19 PFIZER VACCINE 2021-11-19 00:00:00 Completed [facility] SARS-COV-2 COVID-19 PFIZER VACCINE 2021-11-19 00:00:00 Completed [facility] SARS-COV-2 COVID-19 PFIZER VACCINE 2021-11-19 00:00:00 Completed [facility] SARS-COV-2 COVID-19 PFIZER VACCINE 2021-11-19 00:00:00 Completed [facility] SARS-COV-2 COVID-19 PFIZER VACCINE 2021-11-19 00:00:00 Completed [facility] SARS-COV-2 COVID-19 PFIZER VACCINE 2021-11-19 00:00:00 Completed [facility] SARS-COV-2 COVID-19 PFIZER VACCINE 2021-11-19 00:00:00 Completed [facility] SARS-COV-2 COVID-19 PFIZER VACCINE 2021-11-19 00:00:00 Completed [facility] SARS-COV-2 COVID-19 PFIZER VACCINE 2021-11-19 00:00:00 Completed [facility] SARS-COV-2 COVID-19 PFIZER VACCINE 2021-11-19 00:00:00 Completed [facility] SARS-COV-2 COVID-19 PFIZER VACCINE 2021-11-19 00:00:00 Completed [facility] SARS-COV-2 COVID-19 PFIZER VACCINE 2021-11-19 00:00:00 Completed [facility] SARS-COV-2 COVID-19 PFIZER VACCINE 2021-11-19 00:00:00 Completed [facility] SARS-COV-2 COVID-19 PFIZER VACCINE 2021-11-19 00:00:00 Completed [facility] TDAP 2021-03-03 00:00:00 Completed [facility] TDAP 2021-03-03 00:00:00 Completed [facility] TDAP 2021-03-03 00:00:00 Completed [facility] TDAP 2021-03-03 00:00:00 Completed [facility] TDAP 2021-03-03 00:00:00 Completed [facility] TDAP 2021-03-03 00:00:00 Completed [facility] TDAP 2021-03-03 00:00:00 Completed [facility] TDAP 2021-03-03 00:00:00 Completed [facility] TDAP 2021-03-03 00:00:00 Completed [facility] TDAP 2021-03-03 00:00:00 Completed [facility] TDAP 2021-03-03 00:00:00 Completed [facility] TDAP 2021-03-03 00:00:00 Completed [facility] TDAP 2021-03-03 00:00:00 Completed [facility] TDAP 2021-03-03 00:00:00 Completed [facility] TDAP 2021-03-03 00:00:00 Completed [facility] TDAP 2021-03-03 00:00:00 Completed [facility] TDAP 2021-03-03 00:00:00 Completed [facility] TDAP 2021-03-03 00:00:00 Completed [facility] TDAP 2021-03-03 00:00:00 Completed [facility] TDAP 2021-03-03 00:00:00 Completed [facility] TDAP 2021-03-03 00:00:00 Completed [facility] TDAP 2021-03-03 00:00:00 Completed [facility] TDAP 2021-03-03 00:00:00 Completed [facility] TDAP 2021-03-03 00:00:00 Completed [facility] TDAP 2021-03-03 00:00:00 Completed [facility] TDAP 2021-03-03 00:00:00 Completed [facility] TDAP 2021-03-03 00:00:00 Completed [facility] TDAP 2021-03-03 00:00:00 Completed [facility] TDAP 2021-03-03 00:00:00 Completed [facility] TDAP 2021-03-03 00:00:00 Completed [facility] TDAP 2021-03-03 00:00:00 Completed [facility] TDAP 2021-03-03 00:00:00 Completed [facility] TDAP 2021-03-03 00:00:00 Completed [facility] TDAP 2021-03-03 00:00:00 Completed [facility] TDAP 2021-03-03 00:00:00 Completed [facility] Influenza Virus Vaccine Quad .5 mL IM 6+ MO 2020-09-23 00:00:00 Completed [facility] Influenza Virus Vaccine Quad .5 mL IM 6+ MO 2020-09-23 00:00:00 Completed [facility] Influenza Virus Vaccine Quad .5 mL IM 6+ MO 2020-09-23 00:00:00 Completed [facility] Influenza Virus Vaccine Quad .5 mL IM 6+ MO 2020-09-23 00:00:00 Completed [facility] Influenza Virus Vaccine Quad .5 mL IM 6+ MO 2020-09-23 00:00:00 Completed [facility] Influenza Virus Vaccine Quad .5 mL IM 6+ MO 2020-09-23 00:00:00 Completed [facility] Influenza Virus Vaccine Quad .5 mL IM 6+ MO 2020-09-23 00:00:00 Completed [facility] Influenza Virus Vaccine Quad .5 mL IM 6+ MO 2020-09-23 00:00:00 Completed [facility] Influenza Virus Vaccine Quad .5 mL IM 6+ MO 2020-09-23 00:00:00 Completed [facility] Influenza Virus Vaccine Quad .5 mL IM 6+ MO 2020-09-23 00:00:00 Completed [facility] Influenza Virus Vaccine Quad .5 mL IM 6+ MO 2020-09-23 00:00:00 Completed [facility] Influenza Virus Vaccine Quad .5 mL IM 6+ MO 2020-09-23 00:00:00 Completed [facility] Influenza Virus Vaccine Quad .5 mL IM 6+ MO 2020-09-23 00:00:00 Completed [facility] Influenza Virus Vaccine Quad .5 mL IM 6+ MO 2020-09-23 00:00:00 Completed [facility] Influenza Virus Vaccine Quad .5 mL IM 6+ MO 2020-09-23 00:00:00 Completed [facility] Influenza Virus Vaccine Quad .5 mL IM 6+ MO 2020-09-23 00:00:00 Completed [facility] Influenza Virus Vaccine Quad .5 mL IM 6+ MO 2020-09-23 00:00:00 Completed [facility] Influenza Virus Vaccine Quad .5 mL IM 6+ MO 2020-09-23 00:00:00 Completed [facility] Influenza Virus Vaccine Quad .5 mL IM 6+ MO 2020-09-23 00:00:00 Completed [facility] Influenza Virus Vaccine Quad .5 mL IM 6+ MO 2020-09-23 00:00:00 Completed [facility] Influenza Virus Vaccine Quad .5 mL IM 6+ MO 2020-09-23 00:00:00 Completed [facility] Influenza Virus Vaccine Quad .5 mL IM 6+ MO 2020-09-23 00:00:00 Completed [facility] Influenza Virus Vaccine Quad .5 mL IM 6+ MO 2020-09-23 00:00:00 Completed [facility] Influenza Virus Vaccine Quad .5 mL IM 6+ MO 2020-09-23 00:00:00 Completed [facility] Influenza Virus Vaccine Quad .5 mL IM 6+ MO 2020-09-23 00:00:00 Completed [facility] Influenza Virus Vaccine Quad .5 mL IM 6+ MO 2020-09-23 00:00:00 Completed [facility] Influenza Virus Vaccine Quad .5 mL IM 6+ MO 2020-09-23 00:00:00 Completed [facility] Influenza Virus Vaccine Quad .5 mL IM 6+ MO 2020-09-23 00:00:00 Completed [facility] Influenza Virus Vaccine Quad .5 mL IM 6+ MO 2020-09-23 00:00:00 Completed [facility] Influenza Virus Vaccine Quad .5 mL IM 6+ MO 2020-09-23 00:00:00 Completed [facility] Influenza Virus Vaccine Quad .5 mL IM 6+ MO 2020-09-23 00:00:00 Completed [facility] Influenza Virus Vaccine Quad .5 mL IM 6+ MO 2020-09-23 00:00:00 Completed [facility] Influenza Virus Vaccine Quad .5 mL IM 6+ MO 2020-09-23 00:00:00 Completed [facility] Influenza Virus Vaccine Quad .5 mL IM 6+ MO 2020-09-23 00:00:00 Completed [facility] Influenza Virus Vaccine Quad .5 mL IM 6+ MO 2020-09-23 00:00:00 Completed [facility] Influenza Virus Vaccine Quad .5 mL IM 6+ MO (FLUZONE/FLULAVAL/F LUARIX) Unknown Completed [facility] Vital Signs Vital Name Observation Time Observation Value Comments S ource Systolic blood pressure 2023-02-27 18:06:00 111 mm[Hg] [facility] Diastolic blood pressure 2023-02-27 18:06:00 73 mm[Hg] [facility] Heart rate 2023-02-27 18:06:00 59 /[facility] Body temperature 2023-02-27 18:06:00 36.72 Tali [facility] Respiratory rate 2023-02-27 18:06:00 18 /min [facility] Body height 2023-02-27 18:06:00 149.9 cm [facility] acute [facility] Body weight 2023-02-27 18:06:00 61.689 kg [facility] acute hospital BMI 2023-02-27 18:06:00 27.47 kg/m2 [facility] acute hospital Systolic blood pressure 2023-01-31 09:20:00 108 mm[Hg] [facility] Diastolic blood pressure 2023-01-31 09:20:00 70 mm[Hg] [facility] Heart rate 2023-01-31 09:20:00 60 /min [facility] Body temperature 2023-01-31 09:20:00 36.67 Tali [facility] Respiratory rate 2023-01-31 09:20:00 18 /min [facility] Oxygen saturation in Arterial blood by Pulse oximetry 2023-01-31 09:20:00 100 /min [facility] Body height 2023-01-30 11:14:00 149.9 cm [facility] acute hospital Body weight 2023-01-30 11:14:00 68.765 kg [facility] acute hospital BMI 2023-01-30 11:14:00 30.62 kg/m2 [facility] acute hospital Systolic blood pressure 2023-01-26 15:44:00 109 mm[Hg] [facility] Diastolic blood pressure 2023-01-26 15:44:00 71 mm[Hg] [facility] Heart rate 2023-01-26 15:44:00 80 /min [facility] Body temperature 2023-01-26 15:44:00 36.72 Tali [facility] Respiratory rate 2023-01-26 15:44:00 18 /min [facility] Body height 2023-01-26 15:44:00 149.9 cm [facility] acute hospital Body weight 2023-01-26 15:44:00 68.493 kg General acute hospital BMI 2023-01-26 15:44:00 30.50 kg/m2 [facility] acute hospital Systolic blood pressure 2023-01-23 18:22:00 110 mm[Hg] [facility] Diastolic blood pressure 2023-01-23 18:22:00 72 mm[Hg] [facility] Heart rate 2023-01-23 18:22:00 90 /min [facility] Body temperature 2023-01-23 18:22:00 36.83 Tali [facility] Respiratory rate 2023-01-23 18:22:00 18 /min [facility] Body height 2023-01-23 18:22:00 149.9 cm [facility] acute hospital Body weight 2023-01-23 18:22:00 69.582 kg General acute hospital BMI 2023-01-23 18:22:00 30.98 kg/m2 General acute hospital Oxygen saturation in Arterial blood by Pulse oximetry 2023-01-23 18:22:00 99 /min [facility] Systolic blood pressure 2023-01-19 18:48:00 111 mm[Hg] [facility] Diastolic blood pressure 2023-01-19 18:48:00 68 mm[Hg] [facility] Heart rate 2023-01-19 18:48:00 81 /min [facility] Body temperature 2023-01-19 18:48:00 36.61 Tali [facility] Respiratory rate 2023-01-19 18:48:00 18 /min [facility] Body height 2023-01-19 18:48:00 149.9 cm [facility] acute hospital Body weight 2023-01-19 18:48:00 69.037 kg General acute hospital BMI 2023-01-19 18:48:00 30.74 kg/m2 General acute hospital Oxygen saturation in Arterial blood by Pulse oximetry 2023-01-19 18:48:00 99 /min [facility] Systolic blood pressure 2023-01-12 16:09:00 100 mm[Hg] [facility] Diastolic blood pressure 2023-01-12 16:09:00 68 mm[Hg] [facility] Heart rate 2023-01-12 16:09:00 82 /min [facility] Body temperature 2023-01-12 16:09:00 36.39 Tali [facility] Body height 2023-01-12 16:09:00 149.9 cm [facility] acute hospital Body weight 2023-01-12 16:09:00 68.312 kg General acute hospital BMI 2023-01-12 16:09:00 30.42 kg/m2 [facility] acute hospital Systolic blood pressure 2023-01-05 19:03:00 104 mm[Hg] [facility] Diastolic blood pressure 2023-01-05 19:03:00 68 mm[Hg] [facility] Heart rate 2023-01-05 19:03:00 72 /min [facility] Body temperature 2023-01-05 19:03:00 36.72 Tlai [facility] Body height 2023-01-05 19:03:00 149.9 cm [facility] Body weight 2023-01-05 19:03:00 67.858 [facility] BMI 2023-01-05 19:03:00 30[facility]22 [facility] 2022-12-29 15:41:00 115 mm[Hg] [facility] Diastolic blood pressure 2022-12-29 15:41:00 72 mm[Hg] [facility] Heart rate 2022-12-29 15:41:00 74 /min [facility] 2022-12-29 15:41:00 18 /min [facility] Body height 2022-12-29 15:41:00 149.9 cm [facility] weight 2022-12-29 15:41:00 66.679 [facility] BMI 2022-12-29 15:41:00 29.69 kg/m2 [facility] Systolic blood pressure 2022-12-22 15:39:00 109 mm[Hg] [facility] Diastolic blood pressure 2022-12-22 15:39:00 72 mm[Hg] [facility] Heart rate 2022-12-22 15:39:00 67 /min [facility] Body temperature 2022-12-22 15:39:00 37.06 Tali [facility] Body height 2022-12-22 15:39:00 149.9 cm [facility] Body weight 2022-12-22 15:39:00 66.679 [facility] 2022-12-22 15:39:00 29.69 kg/m2 [facility] Systolic blood pressure 2022-12-08 15:43:00 119 mm[Hg] [facility] Diastolic blood pressure 2022-12-08 15:43:00 78 mm[Hg] [facility] Heart rate 2022-12-08 15:43:00 125 /min [facility] 2022-12-08 15:43:00 36.83 Tali [facility] Respiratory rate 2022-12-08 15:43:00 18 /min [facility] Body height 2022-12-08 15:43:00 151.1 cm [facility] acute hospital Body weight 2022-12-08 15:43:00 65.681 kg General acute hospital BMI 2022-12-08 15:43:00 28.76 kg/m2 [facility] acute hospital Systolic blood pressure 2022-12-08 16:44:00 114 mm[Hg] [facility] Diastolic blood pressure 2022-12-08 16:44:00 75 mm[Hg] [facility] Heart rate 2022-12-08 16:44:00 116 /min [facility] Body temperature 2022-12-08 16:44:00 36.44 Tali [facility] Respiratory rate 2022-12-08 16:44:00 22 /min [facility] Body height 2022-12-08 16:44:00 149.9 cm General acute hospital Body weight 2022-12-08 16:44:00 67.132 kg General acute hospital BMI 2022-12-08 16:44:00 29.89 kg/m2 General acute hospital Oxygen saturation in Arterial blood by Pulse oximetry 2022-12-08 16:44:00 99 /min [facility] Heart rate 2022-12-07 03:52:00 74 /min [facility] Body temperature 2022-12-07 03:52:00 36.22 Tali [facility] Respiratory rate 2022-12-07 03:52:00 18 /min [facility] Body height 2022-12-07 03:52:00 149.9 cm General acute hospital Body weight 2022-12-07 03:52:00 67.132 kg General acute hospital BMI 2022-12-07 03:52:00 29.89 kg/m2 General acute hospital Oxygen saturation in Arterial blood by Pulse oximetry 2022-12-07 03:52:00 100 /min [facility] Systolic blood pressure 2022-12-07 03:41:00 130 mm[Hg] [facility] Diastolic blood pressure 2022-12-07 03:41:00 92 mm[Hg] [facility] Systolic blood pressure 2022-11-24 15:29:00 102 mm[Hg] [facility] Diastolic blood pressure 2022-11-24 15:29:00 68 mm[Hg] [facility] Heart rate 2022-11-24 15:29:00 74 /min [facility] Body temperature 2022-11-24 15:29:00 36.56 Tali [facility] Respiratory rate 2022-11-24 15:29:00 18 /min [facility] Body height 2022-11-24 15:29:00 149.9 cm General acute hospital Body weight 2022-11-24 15:29:00 65.318 kg General acute hospital BMI 2022-11-24 15:29:00 29.08 kg/m2 Univ [facility] Systolic blood pressure 2022-10-27 22:50:00 99 mm[Hg] [facility] Diastolic blood pressure 2022-10-27 22:50:00 63 mm[Hg] [facility] Heart rate 2022-10-27 22:50:00 59 /min [facility] Body temperature 2022-10-27 22:50:00 36.72 Tali [facility] Respiratory rate 2022-10-27 22:50:00 18 /min [facility] Body height 2022-10-27 22:50:00 149.9 cm [facility] acute hospital Body weight 2022-10-27 22:50:00 63.05 kg General acute hospital BMI 2022-10-27 22:50:00 28.07 kg/m2 General acute hospital Systolic blood pressure 2022-09-21 22:46:00 106 mm[Hg] [facility] Diastolic blood pressure 2022-09-21 22:46:00 67 mm[Hg] [facility] Heart rate 2022-09-21 22:46:00 84 /min [facility] Body temperature 2022-09-21 22:46:00 37.06 Tali [facility] Respiratory rate 2022-09-21 22:46:00 18 /min [facility] Body height 2022-09-21 22:46:00 149.9 cm Univ [facility] Body weight 2022-09-21 22:46:00 60.328 kg Univ [facility] BMI 2022-09-21 22:46:00 26.86 [facility] pressure 2022-08-23 20:21:00 101 mm[Hg] [place] [facility] Diastolic blood pressure 2022-08-23 20:21:00 65 mm[Hg] [facility] Heart rate 2022-08-23 20:21:00 60 /min [facility] Body temperature 2022-08-23 20:21:00 36.5 Tali [facility] Body height 2022-08-23 20:21:00 149.9 cm Univ [facility] Body weight 2022-08-23 20:21:00 56.518 kg Univ [facility] BMI 2022-08-23 20:21:00 25.17 kg/m2 Univ [facility] Systolic blood pressure 2022-07-26 17:13:00 99 mm[Hg] [facility] Diastolic blood pressure 2022-07-26 17:13:00 63 mm[Hg] [facility] Heart rate 2022-07-26 17:13:00 61 /min [facility] Body temperature 2022-07-26 17:13:00 36.5 Tali [facility] Body height 2022-07-26 17:13:00 149.9 cm [facility] 2022-07-26 17:13:00 54.885 kg Univ [facility] BMI 2022-07-26 17:13:00 24.44 kg/m2 Univ [facility] Diastolic blood pressure 2022-06-27 17:05:00 69 mm[Hg] [facility] Heart rate 2022-06-27 17:05:00 66 /min [facility] Body temperature 2022-06-27 17:05:00 36.67 Tali [facility] Respiratory rate 2022-06-27 17:05:00 16 /min [facility] Body height 2022-06-27 17:05:00 149.9 cm [facility] acute hospital Body weight 2022-06-27 17:05:00 53.978 kg General acute hospital BMI 2022-06-27 17:05:00 24.04 kg/m2 [facility] acute hospital Systolic blood pressure 2022-06-27 17:05:00 106 mm[Hg] [facility] Systolic blood pressure 2022-01-25 20:36:00 98 mm[Hg] [facility] Diastolic blood pressure 2022-01-25 20:36:00 67 mm[Hg] [facility] Heart rate 2022-01-25 20:36:00 64 /min [facility] Body temperature 2022-01-25 20:36:00 37 Tali [facility] Respiratory rate 2022-01-25 20:36:00 18 /min [facility] Body height 2022-01-25 20:36:00 149.9 cm [facility] acute hospital Body weight 2022-01-25 20:36:00 54.885 kg General acute hospital BMI 2022-01-25 20:36:00 24.44 kg/m2 General acute hospital Procedures Procedure Date / Time Performed Performing Clinician Source CBC WITH DIFF 2023-01-31 09:17:[address] [facility] CBC WITH DIFF 2023-01-30 08:37:00 Rehana [facility] HEPATITIS B SURFACE ANTIGEN 2023-01-30 08:37:00 Gladys [facility]ball [facility] HB ABO GROUPING 2023-01-30 08:37:00 Gladys Kimball [facility] RHO (D) IMMUNE GLOBULIN 2023-01-30 08:37:00 Rehana [facility] ADC ONLY - FERN TEST 2023-01-30 08:37:00 Gladys Kimball [facility] ADC OR [facility] ONLY - RPR 2023-01-30 08:37:00 Gladys Kimball [facility] HIV 1/2 AG-AB WITH REFLEX 2023-01-30 08:37:00 Gladys Kimball [facility] NON-STRESS TEST 2023-01-26 16:09:18 Gladys Kimball lenny [facility] ASSIGNMENT OF BENEFITS 2023-01-26 15:25:36 Docto r Unassigned, [place] [facility] POCT URINALYSIS W/O SPECIFIC GRAVITY 2023-01-26 00:00:00 Gladys Kimball Omid [facility] NON-STRESS TEST 2023-01-23 18:50:54 Gladys Kimball Neeru galvez [facility] NON-STRESS TEST 2023-01-19 19:53:50 Gladys Kimball Neeru galvez [facility] POCT URINALYSIS W/O SPECIFIC GRAVITY 2023-01-19 00:00:00 Gladys Kimball Omid [facility] POCT URINALYSIS W/O SPECIFIC GRAVITY 2023-01-12 00:00:00 KimballGladys Omid [facility] POCT URINALYSIS W/O SPECIFIC GRAVITY 2023-01-05 00:00:00 Gladys Kimball [facility] POCT URINALYSIS W/O SPECIFIC GRAVITY 2022-12-29 00:00:00 Lindsay Duke [facility] >14 WEEKS US LIMITED 2022-12-22 17:48:17 KimballGladys Omid [facility] DSU PRE-OP 2022-12-22 05:01:00 Doctor Unass igned, [place] [facility] POCT URINALYSIS W/O SPECIFIC GRAVITY 2022-12-22 00:00:00 Rehana Gladys Omid [facility] POCT MOLECULAR FLU 2022-12-08 17:18:00 Rehana Gladysleyda Anne U [facility] POCT MOLECULAR STREP 2022-12-08 17:14:00 Rehana Gladys Omid [facility] POCT URINALYSIS 2022-12-08 16:49:00 Abhay Greenberg [facility] acute hospital POCT URINALYSIS W/O SPECIFIC GRAVITY 2022-12-08 15:52:00 Gladys Kimball [facility] ASSIGNMENT OF BENEFITS 2022-12-07 03:32:52 Docto r Unassigned, [place] [facility] CONSENT/REFUSAL FOR DIAGNOSIS AND TREATMENT 2022-12-07 03:29:54 Doctor Unassigned, [place] [facility] PATIENT FINANCIAL POLICY 2022-11-24 15:24:33 Doctor Unassigned, [place] [facility] POCT URINALYSIS W/O SPECIFIC GRAVITY 2022-11-24 00:00:00 Rosemarie Anna Marie [facility] POCT URINALYSIS W/O SPECIFIC GRAVITY 2022-10-27 00:00:00 Gladys Kimball [facility] POCT URINALYSIS W/O SPECIFIC GRAVITY 2022-09-21 00:00:00 Rosemarie Anna Marie [facility] POCT URINALYSIS W/O SPECIFIC GRAVITY 2022-08-23 00:00:00 Gladys Kimball [facility] POCT URINALYSIS W/O SPECIFIC GRAVITY 2022-07-26 00:00:00 Rosemarie Anna Marie [facility] <14 WEEKS US LIMITED 2022-06-28 03:10:08 Gladys Kimball [facility] FLU VACC ([id number]), 6 MO-64 YRS, .5ML, IM, QUAD (FLUCELVAX) 2022-06-27 18:30:19 Gladys Kimball [facility] URINE DRUG (IMMUNOASSAY) - COMPREHENSIVE DRUG SCREEN 2022-06-27 17:29:00 Gladys Kimball [facility] POCT TEST 2022-06-27 17:10:00 Gladys Kimball [facility] POCT URINALYSIS W/O SPECIFIC GRAVITY 2022-06-27 17:10:00 Gladys [facility] SIGN FABRICATOR CLINIC ULTRASOUND 2022-06-27 05:01:00 Doc tor Unassigned, [place] [facility] Encounters Start Date/Time End Date/Time Encounter Type Admission Type Attending Clinicians Care Facility Care Department Encounter ID Source 2022-12-07 00:16:01 Outpatient X [facility] [id number] [facility] 2021-07-19 07:38:03 Outpatient P [facility] [id number] [facility] 2021-07-19 07:33:27 Outpatient P [facility] [id number] [facility] 2023-03-29 15:30:00 2023-03-29 15:30:00 Outpatient R GLADYS KIMBALL [facility] [id number] [facility] 2023-02-27 13:00:00 2023-02-27 13:15:00 [facility] 1.2.840.114 350.1.13.10 4.2.7.2.686 [id number] 134 [id number] [facility] 2023-02-27 13:00:00 2023-02-27 13:00:00 Outpatient R RO[facility]IE [facility] [id number] [facility] 2023-01-30 03:16:00 2023-01-31 13:30:00 Inpatient X GLADYS KIMBALL [facility] [id number] [facility] 2023-01-30 03:16:00 2023-01-31 13:30:00 Hospital Encounter Gladys Kimball [facility] 1.2.840.114 350.1.13.10 4.2.7.2.686 [id number] [facility] 2023-01-30 11:00:00 2023-01-30 11:00:00 Outpatient R GLADYS KIMBALL [facility] [id number] [facility] 2023-01-26 10:00:00 2023-01-26 11:11:50 Outpatient R GLADYS KIMBALL [facility] [id number] [facility] 2023-01-26 10:00:00 2023-01-26 11:11:50 Routine Visit Room, [facility] Nst Gladys Kimball [facility] 1.2.840.114 350.1.13.10 4.2.7.2.686 [id number] 134 [id number] [facility] 2023-01-26 00:00:00 2023-01-26 00:00:00 Orders Only Doctor Unassigned, [place] [facility] 1.2.840.114 350.1.13.10 4.2.7.2.686 [id number] [facility] 2023-01-25 00:00:00 2023-01-25 00:00:00 Telephone KimballGladys [facility] 1.2.840.114 350.1.13.10 4.2.7.2.686 [id number] 134 [id number] [facility] 2023-01-23 13:00:00 2023-01-23 13:15:00 Routine Visit Room, [facility] KimballGladys [facility] 1.2.840.114 350.1.13.10 4.2.7.2.686 [id number] 134 [id number] [facility] 2023-01-23 13:00:00 2023-01-23 13:00:00 Outpatient R [facility] [id number] [facility] 2023-01-19 13:00:00 2023-01-19 14:54:51 Outpatient R GLADYS KIMBALL [facility] [id number] [facility] 2023-01-19 13:00:00 2023-01-19 14:54:51 Routine Visit Room, [facility] Gladys Kimball [facility] 1.2.840.114 350.1.13.10 4.2.7.2.686 [id number] 134 [id number] [facility] 2023 15:00:00 2023 15:00:00 Outpatient R GLADYS KIMBALL [facility] [id number] [facility] 2023 10:00:00 2023 10:00:00 Outpatient R [facility] [id number] [facility] 2023-01-12 11:00:00 2023-01-12 11:25:59 Outpatient R GLADYS KIMABLL [facility] [id number] [facility] 2023-01-12 11:00:00 2023-01-12 11:25:59 Routine Visit lGadys Kimball [facility] PROFESSIO NAL BUILDING 1.2.840.114 350.1.13.10 4.2.7.2.686 [id number] 134 [id number] [facility] 2023-01-05 13:30:00 2023-01-05 14:15:00 Outpatient R GLADYS KIMBALL [facility] [id number] [facility] 2023-01-05 13:30:00 2023-01-05 14:15:00 Routine Visit Gladys Kimball [facility] PROFESSIO NAL BUILDING 1.2840.114 350.1.13.10 4.2.7.2.686 [id number] 134 [id number] [facility] 2023-01-05 00:00:00 2023-01-05 00:00:00 Refill Gladys Kimball [facility] PROFESSIO NAL BUILDING 1.2.840.114 350.1.13.10 4.2.7.2.686 [id number] 134 [id number] [facility] 2022-12-29 10:45:00 2022-12-29 10:56:30 Outpatient R LINDSAY DUKE CHERYAL [facility] [id number] [facility] 2022-12-29 10:45:00 2022-12-29 10:56:30 Routine Visit Lindsay [facility] 1.2840.114 350.1.13.10 4.2.7.2.686 [id number] 134 [id number] [facility] 2022-12-23 00:00:00 2022-12-23 00:00:00 Case Management Gladys Kimball [facility] BUILDING 1.2840.114 350.1.13.10 4.2.7.2.686 [id number] 134 [id number] [facility] 2022-12-22 11:30:00 2022-12-22 11:45:00 Outside Plant Cable Engineer Visit 2, Adc Lab Gladys Kimball [facility] BUILDING 1.20.114 350.1.13.10 4.2.7.2.686 [id number] [facility] 2022-12-22 10:30:00 2022-12-22 11:20:40 Outpatient R GLADYS KIMBALL [facility] [id number] [facility] 2022-12-22 10:30:00 2022-12-22 11:20:40 Routine Visit Gladys Kimball [facility] BUILDING 1.20.114 350.1.13.10 4.2.7.2.686 [id number] 134 [id number] [facility] 2022-12-22 00:00:00 2022-12-22 00:00:00 Orders Only Doctor Unassigned, [place] [facility] 1.2840.114 350.1.13.10 4.2.7.2.686 [id number] [facility] 2022-12-15 11:30:00 2022-12-15 12:00:00 Outside Plant Cable Engineer Visit Ultrasound, Gregg Soares [facility] SIGN FABRICATOR [facility] 1.2840.114 350.1.13.10 4.2.7.2.686 [id number] [facility] 2022-12-15 11:30:00 2022-12-15 11:30:00 Outpatient P CARTAGENA THELMA GREGG Morales [facility] [id number] [facility] 2022-12-09 00:00:00 2022-12-09 00:00:00 Letter (Out) FlorenciaBeverley [facility] 1.840.114 350.1.13.10 4.2.7.2.686 [id number] [facility] 2022-12-08 11:15:00 2022-12-08 12:44:32 Outpatient R JUAN HUA [facility] [id number] [facility] 2022-12-08 10:30:00 2022-12-08 11:52:56 Routine Visit Gladys Kimball [facility] PROFESSIO NAL BUILDING 1..840.114 350.1.13.10 4.2.7.2.686 [id number] 134 [id number] [facility] 2022-12-08 11:15:00 2022-12-08 11:35:00 Urgent Care Juan Hua Vien [facility] BU[facility] 1..840.114 350.1.13.10 4.2.7.2.686 [id number] [facility] 2022-12-06 22:42:00 2022-12-06 23:50:00 Outpatient X GLADYS KIMBALL [facility] [id number] [facility] 2022-12-06 22:42:00 2022-12-06 23:50:00 Emergency Gladys Kimball [facility] 1.84.114 350.1.13.10 4.2.7.2.686 [id number] [facility] 2022-11-24 09:00:00 2022-11-24 10:10:14 Outpatient R ANNA MARIE HOUSTON [facility] [id number] [facility] 2022-11-24 09:00:00 2022-11-24 10:10:14 Routine Visit Anna Marie Houston [facility] BUILDING 1.2.840.114 350.1.13.10 4.2.7.2.686 [id number] 134 [id number] [facility] 2022-11-24 00:00:00 2022-11-24 00:00:00 Orders Only Doctor Unassigned, [place] [facility] 1.2840.114 350.1.13.10 4.2.7.2.686 [id number] [facility] 2022-11-17 16:15:00 2022-11-17 16:15:00 [facility] [id number] [facility] 2022-11-01 09:45:00 2022-11-01 10:00:00 Outside Plant Cable Engineer Visit 2, Adc Lab Gladys Kimball [facility] 1..840.114 350.1.13.10 4.2.7.2.686 [id number] [facility] 2022-11-01 09:45:00 2022-11-01 09:45:00 Outpatient R GLADYS KIMBALL [facility] [id number] [facility] 2022-10-28 13:15:00 2022-10-28 13:15:00 Outpatient P [facility] [id number] [facility] 2022-10-27 16:00:00 2022-10-27 17:18:35 Outpatient ANNA MARIE RODRIGUEZ [facility] [id number] [facility] 2022-10-27 16:00:00 2022-10-27 17:18:35 Routine Visit Gladys Kimball [facility] 1.2.840.114 350.1.13.10 4.2.7.2.686 [id number] 134 [id number] [facility] 2022-10-19 11:00:00 2022-10-19 11:00:00 Outpatient R GLADYS KIMBALL [facility] [id number] [facility] 2022-09-21 16:30:00 2022-09-21 16:55:11 Outpatient R RO[facility]IE [facility] [id number] [facility] 2022-09-21 16:30:00 2022-09-21 16:55:11 Routine Visit Rosemarie Anna Marie [facility] BUILDING 1.2.840.114 350.1.13.10 4.2.7.2.686 [id number] 134 [id number] [facility] 2022-09-20 13:30:00 2022-09-20 13:30:00 Outpatient R NELIDARO [facility] [id number] [facility] 2022-08-23 15:45:00 2022-08-23 15:45:00 Routine Visit Gladys Kimball Omid [facility] NAL BUILDING 1.2.840.114 350.1.13.10 4.2.7.2.686 [id number] 134 [id number] [facility] 2022-08-23 13:30:00 2022-08-23 14:30:00 Outside Plant Cable Engineer Visit Ultrasound, [facility] Boubacar Mccarthy [facility] NAL BUILDING 1.2.840.114 350.1.13.10 4.2.7.2.686 [id number] 134 [id number] [facility] 2022-08-23 13:30:00 2022-08-23 14:13:18 Outpatient P BOUBACAR MCCARTHY [facility] [id number] [facility] 2022-08-15 10:30:00 2022-08-15 10:45:00 Outside Plant Cable Engineer Visit 2, [facility] 1.2.840.114 350.1.13.10 4.2.7.2.686 [id number] 353 [id number] [facility] 2022-08-15 10:30:00 2022-08-15 10:30:00 Outpatient R DARLENE HOUSTONCY [facility] [id number] [facility] 2022-08-01 10:00:00 2022-08-01 10:00:00 Outpatient R [facility] [id number] [facility] 2022-07-26 11:30:00 2022-07-26 11:50:32 Outpatient R DARLENE HOUSTONCY [facility] [id number] [facility] 2022-07-26 11:30:00 2022-07-26 11:50:32 Routine Visit Darlene Houstoncy [facility] 1.2.840.114 350.1.13.10 4.2.7.2.686 [id number] 134 [id number] [facility] 2022-07-26 00:00:00 2022-07-26 00:00:00 Telephone Gladys Kimball [facility] 1.2.840.114 350.1.13.10 4.2.7.2.686 [id number] 134 [id number] [facility] 2022-06-30 09:45:00 2022-06-30 09:57:57 Outside Plant Cable Engineer Visit 2, Adc Lab Rehana Gladys [facility] 1.2.840.114 350.1.13.10 4.2.7.2.686 [id number] [facility] 2022-06-30 09:45:00 2022-06-30 09:45:00 Outpatient R GLADYS KIMBALL [facility] [id number] [facility] 2022-06-29 09:00:00 2022-06-29 09:00:00 Outpatient R REHANA GLADYS [facility] [id number] [facility] 2022-06-28 10:30:00 2022-06-28 10:30:00 Outpatient R [facility] [id number] [facility] 2022-06-27 14:30:00 2022-06-27 14:30:00 Initial Visit Gladys Kimball [facility] BU[facility] 1.2.840.114 350.1.13.10 4.2.7.2.686 [id number] 134 [id number] [facility] 2022-06-27 14:30:00 2022-06-27 12:40:00 Outpatient R LGADYS KIMBALL [facility] [id number] [facility] 2022-06-27 00:00:00 2022-06-27 00:00:00 Orders Only Doctor Unassigned, [place] [facility] 1.2.840.114 350.1.13.10 4.2.7.2.686 [id number] [facility] 2022-02-08 15:00:00 2022-02-08 15:00:00 Outpatient R RO[facility]IE [facility] [id number] [facility] 2022-01-25 15:00:00 2022-01-25 15:51:48 Outpatient R RO[facility] [id number] [facility] 2022-01-25 15:00:00 2022-01-25 15:51:48 Office Visit Rosemarie Anna Marie [facility] 1.2.840.114 350.1.13.10 4.2.7.2.686 [id number] 134 [id number] [facility] 2022-01-25 15:00:00 2022-01-25 15:51:48 Outpatient R [facility] [id number] [facility] 2022-01-25 00:00:00 2022-01-25 00:00:00 Orders Only Doctor Unassigned, [place] [facility] 1.840.114 350.1.13.10 4.2.7.2.686 [id number] [facility] 2022-01-17 08:30:00 2022-01-17 08:30:00 Outpatient R ANNA MARIE [place]ON [facility] [id number] [facility] 2021-09-09 11:15:00 2021-09-09 11:15:00 Outpatient R [facility] [id number] [facility] 2021-09-06 11:30:00 2021-09-06 11:45:00 Outside Plant Cable Engineer Visit Pob, Adc Lab Main Jimbo Anguiano [facility] 1..840.114 350.1.13.10 4.2.7.2.686 [id number] [facility] 2021-09-06 11:30:00 2021-09-06 11:30:00 Outpatient R JIMBO ANGUIANO [facility] [id number] [facility] 2021-09-06 00:00:00 2021-09-06 00:00:00 Telephone Juan Francisco Anguianon [facility] 1..840.114 350.1.13.10 4.2.7.2.686 [id number] 134 [id number] [facility] 2021-09-03 14:18:00 2021-09-03 18:09:00 Emergency X YOHANNES BURRELL [facility] ERT [id number] [facility] 2021-09-03 14:18:00 2021-09-03 18:09:00 Emergency Yohannes Burrell [facility] 1..840.114 350.1.13.10 4.2.7.2.686 [id number] [facility] 2021-09-03 00:00:00 2021-09-03 00:00:00 Telephone Kimball, Gladys [facility] 1.2.840.114 350.1.13.10 4.2.7.2.686 [id number] 134 [id number] [facility] 2021-09-02 00:00:00 2021-09-02 00:00:00 Telephone Gladys Kimball [facility] 1.2.840.114 350.1.13.10 4.2.7.2.686 [id number] 134 [id number] [facility] 2021-08-17 09:00:00 2021-08-17 09:00:00 Outpatient Natalee [place] ANNA MARIE [facility] [id number] [facility] 2021-07-20 11:25:11 2021-07-20 11:58:05 Routine Visit Gladys Kimball Nancy [facility] 1.2.840.114 350.1.13.10 4.2.7.2.686 [id number] 134 [id number] [facility] 2021-07-20 11:15:00 2021-07-20 11:58:05 Outpatient R ROSEMARIE ANNA MARIE [facility] [id number] [facility] 2021-06-14 13:15:00 2021-06-14 13:15:00 Outpatient R REHANA GLADYS [facility] [id number] [facility] 2021-06-07 13:15:00 2021-06-07 13:15:00 [facility] [id number] [facility] 2021-05-17 13:28:15 2021-05-17 14:03:58 Routine Visit Gladys Kimball [facility] 1.2.840.114 350.1.13.10 4.2.7.2.686 [id number] 134 [id number] [facility] 2021-05-17 13:15:00 2021-05-17 13:15:00 Outpatient R GLADYS KIMBALL [facility] [id number] [facility] 2021-05-07 14:13:00 2021-05-10 15:00:00 Hospital Encounter Jimbo Anguiano Vien [facility] 1.2840.114 350.1.13.10 4.2.7.2.686 [id number] [facility] 2021-05-10 10:00:00 2021-05-10 10:00:00 Outpatient R [facility] [id number] [facility] 2021-05-08 08:57:00 2021-05-08 19:29:00 Anesthesia Event Fabrizio Stoner [facility] 1..114 350.1.13.10 4.2.7.2.686 [id number] [facility] 2021-05-07 00:00:00 2021-05-07 00:00:00 Orders Only Doctor Unassigned, [place] [facility] 1.0.114 350.1.13.10 4.2.7.2.686 [id number] [facility] 2021-05-05 10:08:05 2021-05-05 11:35:42 Routine Visit Room, [facility] Nst Gayathri Pablo [facility] Professio [facility] Building 1..114 350.1.13.10 4.2.7.2.686 [id number] 134 [id number] [facility] 2021-05-05 10:00:00 2021-05-05 10:00:00 Outpatient R [facility] [id number] [facility] 2021-04-28 14:13:20 2021-04-28 14:28:20 Routine Visit Gladys Kimball [facility] Professio nal Building 1..114 350.1.13.10 4.2.7.2.686 [id number] [facility] 2021-04-28 14:15:00 2021-04-28 14:15:00 Outpatient R GLADYS KIMBALL [facility] [id number] [facility] 2021-04-21 09:09:44 2021-04-21 09:57:49 Routine Visit Gladys Kimball [facility] Building 1.2.840.114 350.1.13.10 4.2.7.2.686 [id number] 134 [id number] [facility] 2021-04-21 09:15:00 2021-04-21 09:15:00 Outpatient R GLADYS KIMBALL [facility] [id number] [facility] 2021-04-14 16:52:32 2021-04-14 17:07:32 Outside Plant Cable Engineer Visit Pob, Adc Lab Main Gladys Kimball [facility] Building 1.2.840.114 350.1.13.10 4.2.7.2.686 [id number] [facility] 2021-04-14 15:30:19 2021-04-14 15:45:19 Routine Visit Gladys Kimball [facility] Building 1.2.840.114 350.1.13.10 4.2.7.2.686 [id number] 134 [id number] [facility] 2021-04-14 15:30:00 2021-04-14 15:30:00 Outpatient R GLADYS KIMBALL [facility] [id number] [facility] 2021-04-14 00:00:00 2021-04-14 00:00:00 Orders Only Doctor Unassigned, [place] [facility] 1.2.840.114 350.1.13.10 4.2.7.2.686 [id number] [facility] 2021-03-31 11:13:34 2021-03-31 12:14:41 Routine Visit Anna Marie Houston [facility] Professio [facility] Building 1.2.840.114 350.1.13.10 4.2.7.2.686 [id number] 134 [id number] [facility] 2021-03-31 11:13:34 2021-03-31 12:14:41 Routine Visit Anna Marie Houston [facility] Building 1.2.840.114 350.1.13.10 4.2.7.2.686 [id number] 134 [id number] 2021-03-31 11:15:00 2021-03-31 11:15:00 [facility] [id number] [facility] 2021-03-29 13:54:00 2021-03-29 16:10:00 Hospital Encounter Gladys Kimball [facility] 1.2.840.114 350.1.13.10 4.2.7.2.686 [id number] [facility] 2021-03-29 13:54:00 2021-03-29 16:10:00 Hospital Encounter Gladys Kimball [facility] 1.2.840.114 350.1.13.10 4.2.7.2.686 [id number] 2021-03-29 00:00:00 2021-03-29 00:00:00 Telephone Gladys Kimball [facility] Building 1.2.840.114 350.1.13.10 4.2.7.2.686 [id number] 134 [id number] [facility] 2021-03-29 00:00:00 2021-03-29 00:00:00 Telephone Gladys Kimball [facility] Building 1.2.840.114 350.1.13.10 4.2.7.2.686 [id number] 134 [id number] 2021-03-18 09:58:42 2021-03-18 10:28:42 Outside Plant Cable Engineer Visit Ultrasound, [facility] Boubacar Mccarthy [facility] Building 1.2.840.114 350.1.13.10 4.2.7.2.686 [id number] 134 [id number] [facility] 2021-03-18 09:58:42 2021-03-18 10:28:42 Outside Plant Cable Engineer Visit Ultrasound, [facility] 1.2.840.114 350.1.13.10 4.2.7.2.686 [id number] 134 [id number] 2021-03-18 10:00:00 2021-03-18 10:00:00 Outpatient P [facility] [id number] [facility] 2021-03-17 15:29:16 2021-03-17 16:15:59 Routine Visit Gladys Kimball [facility] 1.2.840.114 350.1.13.10 4.2.7.2.686 [id number] 134 [id number] [facility] 2021-03-17 15:29:16 2021-03-17 16:15:59 Routine Visit Gladys Kimball [facility] 1.2.840.114 350.1.13.10 4.2.7.2.686 [id number] 2021-03-17 15:30:00 2021-03-17 15:30:00 Outpatient R GLADYS KIMBALL [facility] [id number] [facility] 2021-03-03 12:59:15 2021-03-03 13:33:49 Routine Visit Rosemarie Anna Marie [facility] 1.2.840.114 350.1.13.10 4.2.7.2.686 [id number] [facility] 2021-03-03 12:59:15 2021-03-03 13:33:49 Routine Visit Anna Marie [facility] [id number] 350.1.13.10 4.2.7.2.686 [id number] 2021-03-03 13:00:00 2021-03-03 13:00:00 Outpatient R ANNA MARIE [place]ON [facility] [id number] [facility] 2021-02-11 08:14:51 2021-02-11 08:29:51 Outside [employer] Cable Engineer Visit 2, Adc Lab Gladys Kimball [facility] 1.2.840.114 350.1.13.10 4.2.7.2.686 [id number] [facility] 2021-02-11 08:15:00 2021-02-11 08:15:00 Outpatient R GLADYS KIMBALL [facility] [id number] [facility] 2021-02-06 00:00:00 2021-02-06 00:00:00 Case Management Gladys Kimball [facility] 1.2.840.114 350.1.13.10 4.2.7.2.686 [id number] [facility] 2021-02-05 14:52:29 2021-02-05 15:07:29 Outside Plant Cable Engineer Visit 2, [facility] 1.2.840.114 350.1.13.10 4.2.7.2.686 [id number] [facility] 2021-02-05 14:02:55 2021-02-05 14:32:55 Outside Plant Cable Engineer Visit Ultrasound, [facility] 1.2.840.114 350.1.13.10 4.2.7.2.686 [id number] [facility] 2021-02-05 14:00:00 2021-02-05 14:00:00 Outpatient R [facility] [id number] [facility] 2021-02-03 10:55:46 2021-02-03 11:54:21 Routine Visit Gladys Kimball Omid [facility] 1.2.840.114 350.1.13.10 4.2.7.2.686 [id number] 134 [id number] [facility] 2021-02-03 10:30:00 2021-02-03 10:30:00 Outpatient R GLADYS KIMBALL [facility] [id number] [facility] 2021-01-06 10:14:21 2021-01-06 10:29:21 Routine Visit Anna Marie Houston [facility] 1.2.840.114 350.1.13.10 4.2.7.2.686 [id number] 134 [id number] [facility] 2021-01-06 10:00:00 2021-01-06 10:00:00 Outpatient R ANNA MARIE [place] [facility] [id number] [facility] 2020-12-21 00:00:00 2020-12-21 00:00:00 Patient Secure Msg Doctor Unassigned, [place] [facility] 1.2.840.114 350.1.13.10 4.2.7.2.686 [id number] [facility] 2020-12-21 00:00:00 2020-12-21 00:00:00 Telephone Anna Marie Houston [facility] 1.2.840.114 350.1.13.10 4.2.7.2.686 [id number] 134 [id number] [facility] 2020-12-18 13:04:13 2020-12-18 14:04:13 Outside Plant Cable Engineer Visit Ultrasound, Adc [facility] 1.2.840.114 350.1.13.10 4.2.7.2.686 [id number] 134 [id number] [facility] 2020-12-18 13:00:00 2020-12-18 13:00:00 Outpatient R [facility] [id number] [facility] 2020-12-09 10:59:17 2020-12-09 11:35:07 Routine Visit Gladys Kimball [facility] Building 1.2.840.114 350.1.13.10 4.2.7.2.686 [id number] 134 [id number] [facility] 2020-12-09 10:45:00 2020-12-09 10:45:00 Outpatient R [facility] [id number] [facility] 2020-11-25 00:00:00 2020-11-25 00:00:00 Telephone Gladys Kimball [facility] 1.2.840.114 350.1.13.10 4.2.7.2.686 [id number] 134 [id number] [facility] 2020-11-19 00:00:00 2020-11-19 00:00:00 Telephone Gladys Kimball [facility] 1.2.840.114 350.1.13.10 4.2.7.2.686 [id number] 134 [id number] [facility] 2020-11-11 11:33:59 2020-11-11 11:48:59 Outside Plant Cable Engineer Visit 2, Adc Lab Anna Marie Houston [facility] Building 1.2.840.114 350.1.13.10 4.2.7.2.686 [id number] [facility] 2020-11-11 09:58:27 2020-11-11 11:11:17 Routine Visit Anna Marie Houston [facility] 1..840.114 350.1.13.10 4.2.7.2.686 [id number] 134 [id number] [facility] 2020-11-11 09:45:00 2020-11-11 09:45:00 Outpatient R ANNA MARIE [place] [facility] [id number] [facility] 2020-11-11 00:00:00 2020-11-11 00:00:00 Orders Only Doctor Unassigned, [place] [facility] 1.840.114 350.1.13.10 4.2.7.2.686 [id number] [facility] 2020-10-20 09:46:08 2020-10-20 10:01:08 Outside Plant Cable Engineer Visit 2, Adc Lab Gladys Kimball [facility] 1..840.114 350.1.13.10 4.2.7.2.686 [id number] [facility] 2020-10-20 09:30:00 2020-10-20 09:30:00 Outpatient R GLADYS KIMBALL [facility] [id number] [facility] 2020-10-19 09:15:00 2020-10-19 09:15:00 Outpatient R GLADYS KIMBALL [facility] [id number] [facility] 2020-10-15 13:00:00 2020-10-15 13:00:00 Outpatient R [facility] [id number] [facility] 2020-10-14 15:30:00 2020-10-14 15:30:00 Outpatient R GLADYS KIMBALL [facility] [id number] [facility] 2020-10-14 14:07:50 2020-10-14 14:48:20 Routine Visit Gladys Kimball [facility] 1.2.840.114 350.1.13.10 4.2.7.2.686 [id number] 134 [id number] [facility] 2020-09-28 00:00:00 2020-09-28 00:00:00 Case Management Gladys Kimball [facility] Building 1.2.840.114 350.1.13.10 4.2.7.2.686 [id number] 134 [id number] [facility] 2020-09-23 13:40:43 2020-09-23 15:08:02 Initial Visit Gladys Kimball [facility] 1.2.840.114 350.1.13.10 4.2.7.2.686 [id number] 134 [id number] [facility] 2020-09-23 14:00:00 2020-09-23 14:00:00 Outpatient R [facility] [id number] [facility] 2020-09-23 00:00:00 2020-09-23 00:00:00 Orders Only Doctor Unassigned, [place] [facility] 1.2.840.114 350.1.13.10 4.2.7.2.686 [id number] [facility] 2019-09-23 00:00:00 2019-09-23 00:00:00 Orders Only Doctor Unassigned, [place] [facility] 1.2.840.114 350.1.13.10 4.2.7.2.686 [id number] [facility] 2006-10-13 00:00:00 2006-10-13 14:34:00 Outpatient [facility] [id number] [facility] Results Test Description Test Time Test Comments Results Result Co mments Source [facility] OR TIERRA GALO - [id number] 05:37:46* Test Item Value Reference Range Interpretation Comme nts RPR (Qualitative) (test code = 34315-5) Nonreactive Nonreactive Lab Interpretation (test cod e = 70097-0) Normal [facility] Surface [id number] 16:30:15 * Test Item Value Reference Range Interpretation Comme nts HBsAg Semi-Quantitative (yaneli t code = 5195-3) 0.05 Negative [facility]view[facility] (D) IMMUNE [id number] 14:02:30* Test Item Value Reference Range Interpretation Comme nts RHIG CANDIDATE? (test code = 5188) No- see comment Patient is not a candidate for RhIg- Patient is Rh Positive.Performed at [facility] Laboratory Services - [facility] Blood [address] [place] [id number] Free: [phone] No. [id number] [facility]viewHIV 1/2 AG-AB WITH [id number] 11:10:32* Test Item Value Reference Range Interpretation Comme nts HIV Semi-quantitative (test code = 00760-8) 0.11 Negative DOMINIC (test code = DOMINIC) Non-reactive for HIV-1 antigen and HIV-1/HIV-2 antibodies. ?No laboratory evidence of HIV infection. ?Repeat in 2-4 weeks if acute HIV infection is suspected. [facility]viewCBC with [id number] 08:51:23* Test Item Value Reference Range Interpretation Comme nts WBC (test code = 6690-2) 11.24 See_Comment H [Automated messa ge] The system which generated this result transmitted reference range: 4.30 - 11.10 10*3/?L. The reference range was not used to interpret this result as normal/abnormal. RBC (test code = 789-8) 3.51 See_Comment L [Automated messa ge] The system which generated this result transmitted reference range: 3.93 - 5.25 10*6/?L. The reference range was not used to interpret this result as normal/abnormal. HGB (test code = 718-7) 9.9 g/dL 11.6-15.0 L HCT (test code = 4544-3) 31.0 % 35.7-45.2 L MCV (test code = 787-2) 88.3 fL 80.6-95.5 MCH (test code = 785-6) 28.2 pg 25.9-32.8 MCHC (test code = 786-4) 31.9 g/dL 31.6-35.1 RDW-SD (test code = 14306-5) 48.1 fL 39.0-49.9 RDW-CV (test code = 788-0) 15.1 % 12.0-15.5 PLT (test code = 777-3) 280 See_Comment [Automated messa ge] The system which generated this result transmitted reference range: 166 - 358 10*3/?L. The reference range was not used to interpret this result as normal/abnormal. MPV (test code = 66737-9) 9.8 fL 9.5-12.9 NRBC/100 WBC (test code = 0956544831) 0.0 See_Comment [Automated Flotype ssage] The system which generated this result transmitted reference range: 0.0 - 10.0 /100 WBCs. The reference range was not used to interpret this result as normal/abnormal. NRBC x10^3 (test code = 7467987407) See_Comment [Automated messa ge] The system which generated this result transmitted reference range: 10*3/?L. The reference range was not used to interpret this result as normal/abnormal. GRAN MAT (NEUT) % (test code = 770-8) 49.9 % IMM GRAN % (test code = 7742162524) 0.80 % LYMPH % (test code = 736-9) 35.1 % MONO % (test code = 5905-5) 12.6 % EOS % (test code = 713-8) 1.2 % BASO % (test code = 706-2) 0.4 % GRAN MAT x10^3(ANC) (test code = 8126127216) 5.60 10*3/uL 1.88-7.09 IMM GRAN x10^3 (test code = 5263318176) 0.09 10*3/uL 0.00-0.06 H LYMPH x10^3 (test code = 731-0) 3.95 10*3/uL 1.32-3.29 H MONO x10^3 (test code = 742-7) 1.42 10*3/uL 0.33-0.92 H EOS x10^3 (test code = 711-2) 0.13 10*3/uL 0.03-0.39 BASO x10^3 (test code = 704-7) 0.05 10*3/uL 0.01-0.07 Lab Interpretation (test code = 33796-1) Abnormal [facility] Screen - ONCE [id number] 08:47:00 * Test Item Value Reference Range Interpretation Comme nts ABO & RH (test code = 20) O Positive IAT (test code = 1185) Negative [facility]viewPOCT URINALYSIS W/O SPECIFIC [id number] 15:46:00* Test Item Value Reference Range Interpretation Comme nts POCT PH U (test code = 3254) n/a 5-8 POCT U LEUK EST (test code = 3263) n/a Negative - Negative POCT U NIT (test code = 3262) n/a Negative - Negati ve POCT U PROT (test code = 3259) Trace Negative - Negat susan POCT U GLU (test code = 3256) Negative Negative - Negati ve POCT U KETONE (test code = 3258) n/a Negative - Neg ative POCT U BLD (test code = 3257) n/a Negative - Negati ve [facility]POAL URINALYS[facility] W/O SPECIFIC [id number] 18:47:00* Test Item Value Reference Range Interpretation Comme nts POCT PH U (test code = 3254) n/a 5-8 POCT U LEUK EST (test code = 3263) n/a Negative - Negative POCT U NIT (test code = 3262) n/a Negative - Negati ve POCT U PROT (test code = 3259) 30 Negative - Negat susan POCT U GLU (test code = 3256) negative Negative - Negati ve POCT U KETONE (test code = 3258) negative Negative - Neg ative POCT U BLD (test code = 3257) n/a Negative - Negati ve [facility]PO[facility] URINAL[facility] W/O SPECIFIC [id number] 16:06:00* Test Item Value Reference Range Interpretation Comme nts POCT PH U (test code = 3254) 7 mg/dl 5-8 POCT U LEUK EST (test code = 3263) Negative Negative - Negative POCT U NIT (test code = 3262) Negative Negative - Negati ve POCT U PROT (test code = 3259) Negative Negative - Negat susan POCT U GLU (test code = 3256) Negative Negative - Negati ve POCT U KETONE (test code = 3258) Negative Negative - Neg ative POCT U BLD (test code = 3257) 250 Negative - Negati ve [facility] URINALYSIS W/O SPECIFIC [id number] 19:01:00* Test Item Value Reference Range Interpretation Comme nts POCT PH U (test code = 3254) n/a 5-8 POCT U LEUK EST (test code = 3263) n/a Negative - N egative POCT U NIT (test code = 3262) n/a Negative - Negati ve POCT U PROT (test code = 3259) Trace Negative - Negat susan POCT U GLU (test code = 3256) Normal Negative - Negati ve POCT U KETONE (test code = 3258) n/a Negative - Neg ative POCT U BLD (test code = 3257) n/a Negative - Negati ve [facility] URINALYSIS W/O SPECIFIC [id number] 15:44:00* Test Item Value Reference Range Interpretation Comme nts POCT PH U (test code = 3254) N/A 5-8 POCT U LEUK EST (test code = 3263) N/A Negative - Negative POCT U NIT (test code = 3262) N/A Negative - Negati ve POCT U PROT (test code = 3259) Negative Negative - Negat susan POCT U GLU (test code = 3256) Negative Negative - Negati ve POCT U KETONE (test code = 3258) N/A Negative - Neg ative POCT U BLD (test code = 3257) N/A Negative - Negati ve [facility] URINALYSIS W/O SPECIFIC [id number] 15:37:00* Test Item Value Reference Range Interpretation Comme nts POCT PH U (test code = 3254) n/a 5-8 POCT U LEUK EST (test code = 3263) n/a Negative - Negative POCT U NIT (test code = 3262) n/a Negative - Negati ve POCT U PROT (test code = 3259) Negative Negative - Negat susan POCT U GLU (test code = 3256) Normal Negative - Negati ve POCT U KETONE (test code = 3258) n/a Negative - Neg ative POCT U BLD (test code = 3257) n/a Negative - Negati ve [facility] MOLECULAR [id number] 17:30:16* Test Item Value Reference Range Interpretation Comme nts POCT Molecular FluA (test co de = 95281-8) Negative Negative POCT Molecular FluB (test co de = 43869-6) Negative Negative Lab Interpretation (test cod e = 94621-3) Normal [facility] MOLECULAR [id number] 17:22:42* Test Item Value Reference Range Interpretation Comme nts POCT Molecular Strep (test c ode = 61054-4) Negative Negative Lab Interpretation (test cod e = 54325-0) Normal [facility] URINALYSIS W SPECIFIC [id number] 16:49:00* Test Item Value Reference Range Interpretation Comme nts POCT U SP GRAV (test code = 3255) 1.005 mg/dl 1.005-1.025 POCT PH U (test code = 3254) 6 mg/dl 5-8 POCT U LEUK EST (test code = 3263) negative Negative - Negative POCT U NIT (test code = 3262) negative Negative - Negati ve POCT U PROT (test code = 3259) negative Negative - Negative POCT U GLU (test code = 3256) normal Negative - Negati ve POCT U KETONE (test code = 3258) large Negative - Negative POCT U UROBILI (test code = 3260) normal 0.2-1 POCT U BILI (test code = 3261) negative Negative - Negative POCT U BLD (test code = 3257) negative Negative - Negati ve POCT U COLOR (test code = 3266) yellow POCT U APPEAR (test code = 3267) clear [facility] URINALYSIS W/O SPECIFIC [id number] 15:52:00* Test Item Value Reference Range Interpretation Comme nts POCT PH U (test code = 3254) 5 mg/dl 5-8 POCT U LEUK EST (test code = 3263) trace Negative - Negative POCT U NIT (test code = 3262) negatie Negative - Negative POCT U PROT (test code = 3259) trace Negative - Negative POCT U GLU (test code = 3256) negative Negative - Negative POCT U KETONE (test code = 3258) 3+ Negative - Negative POCT U BLD (test code = 3257) 250 Negative - Negative DOMINIC (test code = DOMINIC) accurate developme nt and interpretation of all internal controls Lab Interpretation (test code = 49505-8) Abnormal [facility] URINALYSIS W/O SPECIFIC [id number] 15:41:00* Test Item Value Reference Range Interpretation Comme nts POCT PH U (test code = 3254) n/a 5-8 POCT U LEUK EST (test code = 3263) n/a Negative - N egative POCT U NIT (test code = 3262) n/a Negative - Negati ve POCT U PROT (test code = 3259) neg Negative - Negat susan POCT U GLU (test code = 3256) neg Negative - Negati ve POCT U KETONE (test code = 3258) n/a Negative - Neg ative POCT U BLD (test code = 3257) n/a Negative - Negati ve [facility] URINALYSIS W/O SPECIFIC [id number] 22:58:00* Test Item Value Reference Range Interpretation Comme nts POCT PH U (test code = 3254) n/a 5-8 POCT U LEUK EST (test code = 3263) n/a Negative - N egative POCT U NIT (test code = 3262) n/a Negative - Negati ve POCT U PROT (test code = 3259) neg Negative - Negat susan POCT U GLU (test code = 3256) neg Negative - Negati ve POCT U KETONE (test code = 3258) n/a Negative - Neg ative POCT U BLD (test code = 3257) n/a Negative - Negati ve [facility] URINALYSIS W/O SPECIFIC [id number] 22:50:00* Test Item Value Reference Range Interpretation Comme nts POCT PH U (test code = 3254) n/a 5-8 POCT U LEUK EST (test code = 3263) n/a Negative - N egative POCT U NIT (test code = 3262) n/a Negative - Negati ve POCT U PROT (test code = 3259) neg Negative - Negat susan POCT U GLU (test code = 3256) neg Negative - Negati ve POCT U KETONE (test code = 3258) n/a Negative - Neg ative POCT U BLD (test code = 3257) n/a Negative - Negati ve [facility] URINALYSIS W/O SPECIFIC [id number] 20:19:00* Test Item Value Reference Range Interpretation Comme nts POCT PH U (test code = 3254) 7 mg/dl 5-8 POCT U LEUK EST (test code = 3263) Negative Negative - Negative POCT U NIT (test code = 3262) Negative Negative - Negati ve POCT U PROT (test code = 3259) Negative Negative - Negat susan POCT U GLU (test code = 3256) Normal Negative - Negati ve POCT U KETONE (test code = 3258) Negative Negative - Neg ative POCT U BLD (test code = 3257) Negative - Negati ve [facility] URINALYSIS W/O SPECIFIC [id number] 17:13:00* Test Item Value Reference Range Interpretation Comme nts POCT PH U (test code = 3254) 7 mg/dl 5-8 POCT U LEUK EST (test code = 3263) Negative Negative - Negative POCT U NIT (test code = 3262) Negative Negative - Negati ve POCT U PROT (test code = 3259) Negative Negative - Negat susan POCT U GLU (test code = 3256) Normal Negative - Negati ve POCT U KETONE (test code = 3258) + small Negative - Neg ative POCT U BLD (test code = 3257) Negative - Negati ve [facility] [id number] 17:10:00* Test Item Value Reference Range Interpretation Comme nts POCT PREG (test code = 1605) Positive On board controls acceptable with C Line (test code = 3574) Yes POCT PREG LOT # (test code = 3575) POCT PREG TEST DATE ( test code = 3576) [facility] SPECIFIC [id number] 17:10:00* Test Item Value Reference Range Interpretation Comme nts POCT PH U (test code = 3254) N/A 5-8 POCT U LEUK EST (test code = 3263) N/A Negative - N egative POCT U NIT (test code = 3262) N/A Negative - Negati ve POCT U PROT (test code = 3259) NEG Negative - Negat susan POCT U GLU (test code = 3256) NEG Negative - Negati ve POCT U KETONE (test code = 3258) N/A Negative - Neg ative POCT U BLD (test code = 3257) N/A Negative - Negati ve [facility]
[2023-09-07 20:35] LABS: SARS-CoV-2 Antigen Rapid Res Negative (Negative)
--- NOTE | 2023-09-07 20:43 | EDPHYS ---
Physician Documentation [facility] Name: Negar Bell Age: 28 yrs Sex: Female : 1995 Arrival Date: 09/07/2023 Time: 19:18 Bed 14 Private MD: ED Physician Wu Seymour HPI: 09/07 19:39 This 28 yrs old Female presents to ER via Ambulatory with complaints of Flu sb4 Symptoms. 19:39 Onset: The symptoms/episode began/occurred yesterday. Associated signs and symptoms: sb4 Pertinent positives: congestion, earache, fever, headache, nasal discharge, Pertinent negatives: abdominal pain, chest pain, cough, diarrhea, dysuria, sore throat. Modifying factors:. The patient has not experienced similar symptoms in the past. The patient has not recently seen a physician. 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 - Social history:: Smoking status: Patient denies any tobacco usage or history of. Patient/guardian denies using alcohol, street drugs. ROS: 19:39 Cardiovascular: Negative for chest pain, palpitations, and edema, Respiratory: Negative sb4 for shortness of breath, cough, wheezing, and pleuritic chest pain, 19:39 Constitutional: Positive for body aches, chills, fever, 19:39 ENT: Positive for ear pain, nasal discharge, rhinorrhea, sinus congestion, 19:39 Neuro: Positive for headache, 19:39 All other systems are negative, Exam: 19:39 Constitutional: This is a well developed, well nourished patient who is awake, alert, sb4 and in no acute distress. Head/Face: Normocephalic, atraumatic. Eyes: Extra-ocular motions intact. Periorbital areas with no swelling, redness, or edema. Cardiovascular: Regular rate and rhythm with a normal S1 and S2. Respiratory: Lungs have equal breath sounds bilaterally, clear to auscultation and percussion. No rales, rhonchi or wheezes noted. No increased work of breathing, no retractions or nasal flaring. Abdomen/GI: Soft, non-tender, no distension. MS/ Extremity: Pulses equal, no cyanosis. Neurovascular intact. Full, normal range of motion. Neuro: Awake and alert, GCS 15, oriented to person, place, time, and situation. Motor strength 5/5 in all extremities. Sensory grossly intact. 19:39 ENT: TM's: erythema, that is moderate, on the left, Posterior pharynx: no acute changes, Airway: normal, no evidence of obstruction, 19:39 Skin: Exam negative for cellulitis, mottling, Appearance: Temperature: warm, Vital Signs: 19:32 BP 116 / 76; Pulse 95; Resp 16; Temp 97.2; Pulse Ox 99% on R/A; Weight 58.06 kg; Height pf1 4 ft. 11 in. ; Pain 8/10; 19:46 BP 118 / 82; Pulse 95; Resp 17; Pulse Ox 99% on R/A; Pain 0/10; tm6 20:44 BP 101 / 67; Pulse 83; Pulse Ox 100% on R/A; Pain 0/10; tm6 19:32 Body Mass Index 25.85 (58.06 kg, 149.86 cm) pf1 19:32 Pain Scale: Adult pf1 19:46 Pain Scale: Adult tm6 20:44 Pain Scale: Adult tm6 MDM: 19:27 Patient medically screened. sb4 19:39 Differential diagnosis: viral Infection, bacterial infection. sb4 20:41 Data reviewed: vital signs, nurses notes, lab test result(s), and as a result, I will sb4 discharge patient. Counseling: I had a detailed discussion with the patient and/or guardian regarding the historical points, exam findings, and any diagnostic results supporting the discharge/admit diagnosis, lab results, to return to the emergency department if symptoms worsen or persist or if there are any questions or concerns that arise at home. 09/07 19:38 Order name: SARS RAPID; Complete Time: 20:36 sb4 09/07 19:38 Order name: Flu; Complete Time: 20:36 sb4 Administered Medications: 20:07 Drug: NS 0.9% IV 1000 ml IV at 1 bolus Per protocol; 1000 mL bolus Route: IV; Rate: 1 tm6 bolus; Site: right antecubital; 20:45 Follow up: Response: No adverse reaction; IV Intake: 1000ml tm6 20:07 Not Given (Patient Refused): [id number] mg PO once tm6 Disposition Summary: 09/07/23 20:42 Discharge Ordered Notes: Location: Home sb4 Problem: new sb4 Symptoms: have improved sb4 Condition: Stable sb4 Diagnosis - Otitis media, unspecified, left ear sb4 - influenza, suspected sb4 Followup: sb4 - With: Emergency Department - When: As needed - Reason: Fever > 102 F, Trouble breathing, Worsening of condition Discharge Instructions: - Discharge Summary Sheet sb4 - Otitis Media, Adult sb4 - Influenza, Adult, Xifd-dl-Mgnt sb4 Forms: - Medication Reconciliation Form sb4 - Thank You Letter sb4 - Antibiotic Education sb4 - Prescription Opioid Use sb4 - Patient Portal Instructions sb4 - Leadership Thank You Letter sb4 Prescriptions: - Amoxicillin 875 mg Oral Tablet - take 1 tablet ORAL route every 12 hours for 10 days; 20 tablet; Refills: 0, sb4 Product Selection Permitted Addendum: 09/10/2023 09:00 Co-signature as Attending Physician, Wu Seymour MD I reviewed the patient's care r t provided by the Advanced Practice Provider and agree with the diagnosis and treatment plan. Signatures: Dispatcher [employer] Lesley Flannery PA-C PA-C sb4 Wu Seymour MD MD rt Jeannette Purcell, RN RN pf1 Matheus Sorenson RN RN tm6
--- NOTE | 2023-09-07 20:43 | ER ---
Nurse's Notes [facility] Name: Negar Bell Age: 28 yrs Sex: Female : 1995 Arrival Date: 09/07/2023 Time: 19:18 Bed 14 Private MD: Diagnosis: Otitis media, unspecified, left ear;influenza, suspected Presentation: 09/07 19:32 Chief complaint: Patient states: body aches, headache pain of 8, runny nose, fever of pf1 highest temp. 102F with chills,onset last night. Patient stated took BC powder at 1845. Coronavirus screen: Vaccine status: Patient reports receiving the 1st dose of the Covid vaccine. Client denies travel out of the [place] in the last 14 days. Client presents with at least one sign or symptom that may indicate coronavirus-19. Ebola Screen: Patient negative for fever greater than or equal to 101.5 degrees Fahrenheit, and additional compatible Ebola Virus Disease symptoms. Initial Sepsis Screen: Does the patient meet any 2 criteria? HR > 90 bpm. No. Patient's initial sepsis screen is negative. Does the patient have a suspected source of infection? No. Patient's initial sepsis screen is negative. Risk Assessment: Do you want to hurt yourself or someone else? Patient reports no desire to harm self or others. 19:32 Method Of Arrival: Ambulatory pf1 19:32 Acuity: MURALI 4 pf1 20:51 Onset of symptoms was September 07, 2023. 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 - Social history:: Smoking status: Patient denies any tobacco usage or history of. Patient/guardian denies using alcohol, street drugs. Screenin:46 [facility] ED Fall Risk Assessment (Adult) History of falling in the last 3 months, tm6 including since admission No falls in past 3 months (0 pts). Abuse screen: Denies threats or abuse. Denies injuries from another. Nutritional screening: No deficits noted. Tuberculosis screening: No symptoms or risk factors identified. Assessment: 19:33 General: Appears in no apparent distress. Behavior is calm, cooperative. tm6 19:46 Reassessment: body aches, chills, runny nose, watery eyes, headache. No pain currently. tm6 Pain: Denies pain. Neuro: Level of Consciousness is awake, alert, obeys commands, Oriented to person, place, time, situation, Reports headache no headache currently. Cardiovascular: Capillary refill < 3 seconds Patient's skin is warm and dry. Respiratory: Airway is patent Respiratory effort is even, unlabored, Respiratory pattern is regular, symmetrical. GI: Abdomen is flat, non-distended. : No signs and/or symptoms were reported regarding the genitourinary system. EENT: Reports nasal discharge watery eyes. Derm: No signs and/or symptoms reported regarding the dermatologic system. Musculoskeletal: No signs and/or symptoms reported regarding the musculoskeletal system. 20:44 Reassessment: Patient appears in no apparent distress at this time. Patient and/or tm6 family updated on plan of care and expected duration. Pain level reassessed. Patient is alert, oriented x 3, equal unlabored respirations, skin warm/dry/pink. Vital Signs: 19:32 BP 116 / 76; Pulse 95; Resp 16; Temp 97.2; Pulse Ox 99% on R/A; Weight 58.06 kg; Height pf1 4 ft. 11 in. ; Pain 8/10; 19:46 BP 118 / 82; Pulse 95; Resp 17; Pulse Ox 99% on R/A; Pain 0/10; tm6 20:44 BP 101 / 67; Pulse 83; Pulse Ox 100% on R/A; Pain 0/10; tm6 19:32 Body Mass Index 25.85 (58.06 kg, 149.86 cm) pf1 19:32 Pain Scale: Adult pf1 19:46 Pain Scale: Adult tm6 20:44 Pain Scale: Adult tm6 ED Course: 19:22 Patient arrived in ED. mr 19:27 Lesley Torres PA-C is PHCP. sb4 19:27 Wu Seymour MD is Attending Physician. sb4 19:33 Matheus Sorenson RN is Primary Nurse. tm6 19:34 Triage completed. pf1 19:46 Patient has correct armband on for positive identification. Bed in low position. Call tm6 light in reach. Side rails up X 1. Provided Education on: plan of care. Client placed on continuous cardiac and pulse oximetry monitoring. NIBP monitoring applied. Door closed. Noise minimized. Lights dimmed. 19:46 Arm band placed on right wrist. tm6 19:46 No provider procedures requiring assistance completed. tm6 19:50 Flu Sent. tm6 19:50 SARS RAPID Sent. tm6 20:01 Inserted saline lock: 20 gauge in right antecubital area, using aseptic technique. tm6 20:51 IV discontinued, intact, bleeding controlled, No redness/swelling at site. Pressure tm6 dressing applied. Administered Medications: 20:07 Drug: NS 0.9% IV 1000 ml IV at 1 bolus Per protocol; 1000 mL bolus Route: IV; Rate: 1 tm6 bolus; Site: right antecubital; 20:45 Follow up: Response: No adverse reaction; IV Intake: 1000ml tm6 20:07 Not Given (Patient Refused): [id number] mg PO once tm6 Medication: 19:46 VIS not applicable for this client. tm6 Intake: 20:45 IV: 1000ml; Total: 1000ml. tm6 Outcome: 20:42 Discharge ordered by MD. sb4 20:51 Discharged to home ambulatory, with family, tm6 20:51 Condition: stable 20:51 Discharge instructions given to patient, family, Instructed on discharge instructions, follow up and referral plans. medication usage, Demonstrated understanding of instructions, follow-up care, medications, Prescriptions given X 1, 20:52 Patient left the ED. tm6 Signatures: FanChanel jason, Reg Reg mr Torres Lesley, PARosaC PAErick sb4 Jeannette Purcell, JAVIER RN pf1 Matheus Sorenson RN RN tm6
[2023-09-07 23:43] VITALS: TEMP 97.2
[2023-09-08] VITALS: BP 101/67; O2SAT 100
== END ==
LOC: ER 19:18
DX: H66.92 Otitis media, unspecified, left ear (principal); Z11.52 Encounter for screening for COVID-19
CPT/HCPCS: 36415; 87804; 87811; 99284; J7030

== ENCOUNTER 2024-10-09 16:39 | Emergency (ER) | payer SELFPAY ==
--- OUTSIDE RECORDS SUMMARY | 2024-10-09 16:43 | XMS REPORT | Continuity of Care Document ---
Author Name Unknown Address [address] [place] [address] [facility] Address 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 Name Role Phone NIALL LOTT JR Primary Care Physician Akila larkin [id number] Attending Clinician Unavailable ROSEY PAGE Attending Clinician UnavailFRANCISCO JAVIER Bonilla Attending Clinician Unavailable Francisco Javier Borrero Attending Clinician [phone] GLADYS KIMBALL Attending Clinician Unavailable Nai Mendez MA Attending Clinician Unavailcasie Kimball MD, Gladys Anne Attending Clinician [phone] Anna Marie Houston PA-C Attending Clinician [phone] ANNA MARIE HOUSTON Attending Clinician Unavailable Room, [facility] Attending Clinician Unavailable Doctor Unassigned, [place] Attending Clinician U LINDSAY Alexander Attending Clinician UnavailLINDSAY Lord Attending Clinician Unavailcasie garcía 2, [facility] Attending Clinician Unavailable Ultrasound, Ang-Mfm Attending Clinician Unavailcasie Ma MD, Gregg Attending Clinician + GREGG BARR Attending Clinician Duke Don RN, Beverley Delarosa Attending Clinician Unavailab JUAN Woodard Attending Clinician Unavailable Ebrahim Juan ALVAREZ Attending Clinician [phone] Ultrasound, Adc Mf Attending Clinician UnavailBoubacar Mishra MD Attending Clinician [phone] BOUBACAR ABEBE Attending Clinician Unavailable Pob, [facility] Main Attending Clinician UnavailJimbo Cardona MD Attending Clinician [phone] JIMBO ANGUIANO Attending Clinician Unavailable YOHANNES BURRELL Attending Clinician Unavailable Yohannes Manzanares S Attending Clinician [phone] Georgiana Roberts MD, Leonard Attending Clinician + [phone] Gayathri Pablo MD Attending Clinician [phone] Clementine Hare MD Attending Clinician [phone] GLADYS KIMBALL Admitting Clinician Unavailable JIMBO ANGUIANO Admitting Clinician Unavailable FRANCISCO JAVIER BLANCA Admitting Clinician Unavailable Gladys Kimball MD Admitting Clinician [phone] YOHANNES BURRELL Admitting Clinician Unavailable Jimbo Anguiano MD Admitting Clinician [phone] Payers Payer Name Policy Type Policy Number Effective Date Expirati on Date Source [facility] [id number] 2020 00:00:00 CIG[employer] II [id number] 2020 00:00:00 MED[place] [id number] 2020 00:00:00 Problems Condition Name Condition Details Condition Category Status Onset Date Resolution Date Last Treatment Date Treating Clinician Comments Source Upper respirator y tract infection, unspecifie d type Upper respirator y tract infection, unspecifie d type Disease Active 3-23 00:00: 00 [facility] Acute bilateral low back pain with left-sided sciatica Acute bilateral low back pain with left-sided sciatica Disease Active 2021-09 2-06 00:00: 00 [facility] Nausea and vomiting during prior to 22 weeks gestation Nausea and vomiting during prior to 22 weeks gestation Disease Active 2021-09 0-10 00:00: 00 [facility] Normal labor Normal labor Disease Resolve d 2022-0 5-15 00:00: 00 2023-02-27 00:00:00 2023-02-27 13:17:58 [facility] Nausea and vomiting during prior to 22 weeks gestation Nausea and vomiting during prior to 22 weeks gestation Disease Resolve d 2021-1 0-10 00:00: 00 2023-02-27 00:00:00 2023-02-27 13:17:56 [facility] High risk , antepartum High risk , antepartum Disease Resolve d 1 0-10 00:00: 00 2023-02-27 00:00:00 2023-02-27 13:17:54 [facility] Liveborn , of l[place]ardi , born in hospital by vaginal delivery Liveborn infant, of l[place]ardi , born in hospital by vaginal delivery Disease Resolve d 2020-0 8-21 00:00: 00 2023-02-27 00:00:00 2023-02-27 13:17:53 [facility] 41 weeks gestation of 41 weeks gestation of Disease Resolve d 2020-0 8-20 00:00: 00 2023-02-27 00:00:00 2023-02-27 13:17:52 [facility] Encounter for screening for maternal depression Encounter for screening for maternal depression Disease Resolve d 2020-09 1-02 00:00: 00 2022-06-27 00:00:00 2022-06-27 22:09:45 [facility] Obesity (BMI 30-39.9) Obesity (BMI 30-39.9) Disease Resolve d 2020-0 7-28 00:00: 00 2022-06-27 00:00:00 2022-06-27 22:09:52 [facility] PROM (premature rupture of membranes) PROM (premature rupture of membranes) Disease Resolve d 2020-0 8-20 00:00: 00 2021-05-17 00:00:00 2021-05-17 15:24:55 [facility] Supervisio n of high risk in third trimester Supervisio n of high risk in third trimester Disease Resolve d 2020-0 6-30 00:00: 00 2021-05-17 00:00:00 2021-05-17 15:24:52 [facility] Low lying placenta, antepartum Low lying placenta, antepartum Disease Resolve d 0 6-30 00:00: 00 2021-05-17 00:00:00 2021-05-17 15:24:58 [facility] Rh negative state in antepartum period Rh negative state in antepartum period Disease Resolve d 0 5-19 00:00: 00 2021-03-17 00:00:00 2021-03-17 16:15:01 [facility] Encounter for supervisio n of normal first in second trimester Encounter for supervisio n of normal first in second trimester Disease Resolve d 0 3-24 00:00: 00 2021-03-17 00:00:00 2021-03-17 16:15:11 [facility] Allergies, Adverse Reactions, Alerts Allergy Name Allergy Type Status Severity Reaction(s) Onset Date Inactive Date Treating Clinician Comments Source NO KNOWN ALLERGIE S Drug Class Active [facility] Social History Social Habit Start Date Stop Date Quantity Comments Source ASSERTION Possible Fara Mera - External Sexual orientation Sheila Mera - External Tobacco use and exposure 2024-09-04 00:00:00 2024-09-04 00:00:00 Smokeless tobacco non-user Fara Mera - External Alcoholic beverage intake 2024-09-04 00:00:00 2024-09-04 00:00:00 Ex-drinker (finding) Fara Mera - External History of Social function 2024-09-04 00:00:00 2024-09-04 00:00:00 Fara Mera - External Sex 2024-08-20 11:52:57 2024-08-20 11:52:57 Female (finding) Fara Mera - External Alcohol intake 2023-11-15 00:00:00 2023-11-15 00:00:00 Ex-drinker (finding) [facility] Exposure to SARS-CoV-2 (event) 2023-01-20 00:00:00 2023-01-30 06:12:00 Not sure [facility] Alcohol Comment 2020-09-23 00:00:00 2020-09-23 00:00:00 Social Drinker [facility] History SDOH Alcohol Frequency 2020-09-23 00:00:00 2020-09-23 00:00:00 99 [facility] History SDOH Alcohol Std Drinks 2020-09-23 00:00:00 2020-09-23 00:00:00 99 [facility] History SDOH Alcohol Binge 2020-09-23 00:00:00 2020-09-23 00:00:00 99 [facility] Sex assigned at 1995 00:00:00 1995 00:00:00 Fara Mera - External Smoking Status Start Date Stop Date Source Never smoked tobacco Fara Mera - External Medications Ordered Medication Name Filled Medication Name Start Date Stop Date Current Medication? Ordering Clinician Indication Dosage Frequency Signature (SIG) Comments Components Source cefdinir (OMNICEF) capsule 300 mg 2023-09 19:00: 00 08-27 18:58 :00 No 300mg 300 mg, Oral, ONCE, 1 dose, On Mon08/27/24 at 1300, WOLF, Reason for Anti-Infec tive: Documented Infection, Documented Infection Site: Urine, Duration of Therapy: Once (ED) [facility] cefdinir 300 mg capsule 2023-09 00:00: 00 09-04 05:59 :00 Yes [id number] 300mg Take 1 capsule by mouth every 12 (twelve) hours for 7 days. [facility] metroNIDAZO LE (FLAGYL) 500 mg tablet 11-16 00:00: 00 11-24 05:59 :00 No [id number] 500mg Take 1 tablet by mouth in the morning and 1 tablet in the evening. Do all this for 7 days. [facility] fluconazole 150 mg tablet 11-15 00:00: 00 05:59 :00 No [id number] 150mg Take 1 tablet by mouth once now for 1 dose. [facility] PNV no.95/selam us fum/folic ac ( ORAL) 01-30 17:09: 28 01-30 00:00 :00 No Take by mouth. [facility] rho(D) immune globulin (RHOGAM) syringe 300 mcg 01-30 10:02: 00 Yes 300ug 300 mcg, Intramuscu lar, ONCE, For 1 dose, Conditiona l, Routine [facility] witch Rafita (TUCKS) 50 % topical pad 01-30 10:01: 55 Yes Topical, Q4HPRN, Starting on Mon01/30/23 at 0501, Until Discontinu ed, Routine, rectal/hem orrhoidal pain [facility] HYDROcodone -acetaminop hen (NORCO 5) 5-325 mg tablet 1 tablet 01-30 10:01: 55 Yes 1{tbl} 1 tablet, Oral, Q6HPRN, Starting on Mon01/30/23 at 0501, Until Discontinu ed, Routine, Pain (scale 7-10) [facility] ibuprofen (IBU) tablet 600 mg 01-30 10:01: 55 Yes 600mg 600 mg, Oral, Q6HPRN, Starting on Mon01/30/23 at 0501, Until Discontinu ed, Routine, Pain (scale 4-6) [facility] acetaminoph en (TYLENOL) tablet 650 mg 01-30 10:01: 55 Yes 650mg 650 mg, Oral, Q6HPRN, Starting on Mon01/30/23 at 0501, Until Discontinu ed, Routine, Pain (scale 1-3) [facility] diphenhydrA MINE (BENADRYL) tablet 25 mg 01-30 10:01: 55 Yes 25mg 25 mg, Oral, Q6HPRN, Starting on Mon01/30/23 at 0501, Until Discontinu ed, Routine, Sleep, Itching [facility] ondansetron (ZOFRAN (PF)) injection 4 mg 01-30 10:01: 55 Yes 4mg 4 mg, Slow IV Push, Q8HPRN, Starting on Mon01/30/23 at 0501, Until Discontinu ed, Routine, Nausea and Vomiting (N/V) [facility] simethicone (GAS RELIEF (SIMETHICON E)) chewable tablet 160 mg 01-30 10:01: 55 Yes 160mg 160 mg, Oral, PC+HSPRN, Starting on Mon01/30/23 at 0501, Until Discontinu ed, Routine, Gas [facility] docusate (COLACE) capsule 200 mg 01-30 10:01: 55 Yes 200mg 200 mg, Oral, QDAILYPRN, Starting on Mon01/30/23 at 0501, Until Discontinu ed, Routine, Constipati on [facility] magnesium hydroxide (MILK OF MAGNESIA) 400 mg/5 mL suspension 30 mL 01-30 10:01: 55 Yes 30mL 30 mL, Oral, QDAILYPRN, Starting on Mon01/30/23 at 0501, Until Discontinu ed, Routine, Constipati on [facility] benzocaine- menthol (DERMOPLAST ) 20-0.5 % topical spray 01-30 10:01: 55 Yes Topical, PRN, Starting on Mon01/30/23 at 0501, Until Discontinu ed, Routine, Perineum discomfort [facility] oxytocin (PITOCIN) 30 units in NS 500 mL IV infusion 01-30 09:45: 07 01-30 10:01 :59 No 600mL/h 600 mL/hr, IV Infusion, PRN, For post delivery uterine atony., Starting on Mon01/30/[address] at 600 mL/hr for 1 hr then 150 mL/hr for 1 hr.
[facility] FENTanyl PF (SUBLIMAZE (PF)) injection 50 mcg 01-30 09:45: 00 01-30 09:36 :00 No 50ug 50 mcg, Slow IV Push, ONCE NOW, 1 dose, On Mon01/30/23 at 0445, Routine [facility] D5W-LR IV infusion 1,000 mL 01-30 08:34: 04 01-30 10:01 :59 No 1000mL at 1-125 mL/hr, IV Infusion, TITRATE, Starting on Mon01/30/23 at 0334, Until Mon01/30/23 at 0501, Routine [facility] vitamin w/FA tablet 01-30 00:00: 00 Yes [id number] 1{tbl} Take 1 tablet by mouth in the morning. [facility] vitamin w/FA tablet 01-30 00:00: 00 11-15 00:00 :00 No [id number] 1{tbl} Take 1 tablet by mouth in the morning. [facility] docusate 100 mg capsule 01-30 00:00: 00 11-15 00:00 :00 No [id number] 200mg Take 2 capsules by mouth once daily as needed for Constipati on. [facility] ferrous sulfate 325 mg (65 mg iron) tablet 01-30 00:00: 00 11-15 00:00 :00 No [id number] 325mg Take 1 tablet by mouth in the morning and 1 tablet in the evening. [facility] ibuprofen 600 mg tablet 01-30 00:00: 00 11-15 00:00 :00 No [id number] 600mg Take 1 tablet by mouth every 6 (six) hours as needed (Pain). Take with food or milk. [facility] ferrous sulfate 325 mg (65 mg iron) tablet 01-25 00:00: 00 01-30 00:00 :00 No [id number] 325mg Take 1 tablet by mouth every morning and evening. [facility] PNV no.95/selam us fum/folic ac ( ORAL) 01-05 14:04: 07 Yes Take by mouth. [facility] PNV no.95/selam us fum/folic ac ( ORAL) 01-05 08:51: 19 01-05 00:00 :00 No Take by mouth. [facility] FERROUS SULFATE 325 mg (65 mg iron) tablet 01-05 00:00: 01-25 00:00 :00 No [id number] TAKE 1 TABLET BY MOUTH IN THE MORNING AND IN THE EVENING [facility] ferrous sulfate (IRON, FERROUS SULFATE,) 325 mg (65 mg iron) tablet 12-23 00:00: 00 01-05 00:00 :00 No [id number] 325mg Take 1 tablet by mouth in the morning and 1 tablet in the evening. [facility] PNV no.95/selam us fum/folic ac ( ORAL) 12-07 00:15: 50 Yes Take by mouth. [facility] PNV no.95/selam us fum/folic ac ( ORAL) 2021-09 11:14: 32 Yes Take by mouth. [facility] No known medications 2021-09 11:06: 11 No No known medication s [facility] No known medications 2021-09 22:07: 51 No No known medication s [facility] vitamin w/FA tablet 05-10 00:00: 00 06-27 00:00 :00 No [id number] 1{tbl} Take 1 tablet by mouth daily. [facility] docusate calcium 240 mg capsule 05-10 00:00: 00 06-27 00:00 :00 No [id number] 240mg Take 1 capsule by mouth once daily as needed for Constipati on. [facility] ferrous sulfate 325 mg (65 mg iron) tablet 05-10 00:00: 00 06-27 00:00 :00 No [id number] 325mg Take 1 tablet by mouth 2 (two) times daily. [facility] ibuprofen 600 mg tablet 05-10 00:00: 00 06-27 00:00 :00 No [id number] 600mg Take 1 tablet by mouth every 6 (six) hours as needed (Pain). Take with food or milk. [facility] Immunizations Ordered Immunization Name Filled Immunization Name Date Status Comments Source Influenza Virus Vaccine Quad IM, Preserv and ABX Free 6 MO-64 YRS 2022-06-27 00:00:00 Completed [facility] Influenza Virus Vaccine Quad IM, Preserv and ABX Free 6 MO-64 YRS 2022-06-27 00:00:00 Completed [facility] Influenza Virus Vaccine Quad IM, Preserv and ABX Free 6 MO-64 YRS 2022-06-27 00:00:00 Completed [facility] Influenza Virus Vaccine Quad IM, Preserv and ABX Free 6 MO-64 YRS 2022-06-27 00:00:00 Completed [facility] Influenza Virus Vaccine Quad IM, Preserv and ABX Free 6 MO-64 YRS 2022-06-27 00:00:00 Completed [facility] Influenza Virus Vaccine Quad IM, Preserv and ABX Free 6 MO-64 YRS 2022-06-27 00:00:00 Completed [facility] Influenza Virus Vaccine Quad IM, Preserv and ABX Free 6 MO-64 YRS 2022-06-27 00:00:00 Completed [facility] Influenza Virus Vaccine Quad IM, Preserv and ABX Free 6 MO-64 YRS 2022-06-27 00:00:00 Completed [facility] Influenza Virus Vaccine Quad IM, Preserv and ABX Free 6 MO-64 YRS 2022-06-27 00:00:00 Completed [facility] Influenza Virus Vaccine Quad IM, Preserv and ABX Free 6 MO-64 YRS 2022-06-27 00:00:00 Completed [facility] Influenza Virus Vaccine Quad IM, Preserv and ABX Free 6 MO-64 YRS 2022-06-27 00:00:00 Completed [facility] Influenza Virus Vaccine Quad IM, Preserv and ABX Free 6 MO-64 YRS 2022-06-27 00:00:00 Completed [facility] Influenza Virus Vaccine Quad IM, Preserv and ABX Free 6 MO-64 YRS 2022-06-27 00:00:00 Completed [facility] Influenza Virus Vaccine Quad IM, Preserv and ABX Free 6 MO-64 YRS 2022-06-27 00:00:00 Completed [facility] Influenza Virus Vaccine Quad IM, Preserv and ABX Free 6 MO-64 YRS 2022-06-27 00:00:00 Completed [facility] Influenza Virus Vaccine Quad IM, Preserv and ABX Free 6 MO-64 YRS 2022-06-27 00:00:00 Completed [facility] Influenza Virus Vaccine Quad IM, Preserv and ABX Free 6 MO-64 YRS 2022-06-27 00:00:00 Completed [facility] Influenza Virus Vaccine Quad IM, Preserv and ABX Free 6 MO-64 YRS 2022-06-27 00:00:00 Completed [facility] Influenza Virus Vaccine Quad IM, Preserv and ABX Free 6 MO-64 YRS 2022-06-27 00:00:00 Completed [facility] Influenza Virus Vaccine Quad IM, Preserv and ABX Free 6 MO-64 YRS 2022-06-27 00:00:00 Completed [facility] Influenza Virus Vaccine Quad IM, Preserv and ABX Free 6 MO-64 YRS 2022-06-27 00:00:00 Completed [facility] Influenza Virus Vaccine Quad IM, Preserv and ABX Free 6 MO-64 YRS 2022-06-27 00:00:00 Completed [facility] Influenza Virus Vaccine Quad IM, Preserv and ABX Free 6 MO-64 YRS 2022-06-27 00:00:00 Completed [facility] Influenza Virus Vaccine Quad IM, Preserv and ABX Free 6 MO-64 YRS 2022-06-27 00:00:00 Completed [facility] Influenza Virus Vaccine Quad IM, Preserv and ABX Free 6 MO-64 YRS 2022-06-27 00:00:00 Completed [facility] Influenza Virus Vaccine Quad IM, Preserv and ABX Free 6 MO-64 YRS 2022-06-27 00:00:00 Completed [facility] Influenza Virus Vaccine Quad IM, Preserv and ABX Free 6 MO-64 YRS 2022-06-27 00:00:00 Completed [facility] Influenza Virus Vaccine Quad IM, Preserv and ABX Free 6 MO-64 YRS 2022-06-27 00:00:00 Completed [facility] Influenza Virus Vaccine Quad IM, Preserv and ABX Free 6 MO-64 YRS 2022-06-27 00:00:00 Completed [facility] Influenza Virus Vaccine Quad IM, Preserv and ABX Free 6 MO-64 YRS 2022-06-27 00:00:00 Completed [facility] Influenza Virus Vaccine Quad IM, Preserv and ABX Free 6 MO-64 YRS 2022-06-27 00:00:00 Completed [facility] Influenza Virus Vaccine Quad IM, Preserv and ABX Free 6 MO-64 YRS 2022-06-27 00:00:00 Completed [facility] Influenza Virus Vaccine Quad IM, Preserv and ABX Free 6 MO-64 YRS (FLUCELVAX) 2022-06-27 00:00:00 Completed [facility] Influenza Virus Vaccine Quad IM, Preserv and ABX Free 6 MO-64 YRS 2022-06-27 00:00:00 Completed [facility] SARS-COV-2 COVID-19 PFIZER VACCINE 2021-12-16 00:00:00 Completed [facility] SARS-COV-2 COVID-19 PFIZER VACCINE 2021-12-16 00:00:00 Completed [facility] SARS-COV-2 COVID-19 PFIZER VACCINE 2021-12-16 00:00:00 Completed [facility] SARS-COV-2 COVID-19 PFIZER VACCINE 2021-12-16 00:00:00 Completed [facility] SARS-COV-2 COVID-19 PFIZER VACCINE 2021-12-16 00:00:00 Completed [facility] SARS-COV-2 COVID-19 PFIZER VACCINE 2021-12-16 00:00:00 Completed [facility] SARS-COV-2 COVID-19 PFIZER VACCINE 2021-12-16 00:00:00 Completed [facility] SARS-COV-2 COVID-19 PFIZER VACCINE 2021-12-16 00:00:00 Completed [facility] SARS-COV-2 COVID-19 PFIZER VACCINE 2021-12-16 00:00:00 Completed [facility] SARS-COV-2 COVID-19 PFIZER VACCINE 2021-12-16 00:00:00 Completed [facility] SARS-COV-2 COVID-19 PFIZER VACCINE 2021-12-16 00:00:00 Completed [facility] SARS-COV-2 COVID-19 PFIZER VACCINE 2021-12-16 00:00:00 Completed [facility] SARS-COV-2 COVID-19 PFIZER VACCINE 2021-12-16 00:00:00 Completed [facility] SARS-COV-2 COVID-19 PFIZER VACCINE 2021-12-16 00:00:00 Completed [facility] SARS-COV-2 COVID-19 PFIZER VACCINE 2021-12-16 00:00:00 Completed [facility] SARS-COV-2 COVID-19 PFIZER VACCINE 2021-12-16 00:00:00 Completed [facility] SARS-COV-2 COVID-19 PFIZER VACCINE 2021-12-16 00:00:00 Completed [facility] SARS-COV-2 COVID-19 PFIZER VACCINE 2021-12-16 00:00:00 Completed [facility] SARS-COV-2 COVID-19 PFIZER VACCINE 2021-12-16 00:00:00 Completed [facility] SARS-COV-2 COVID-19 PFIZER VACCINE 2021-12-16 00:00:00 Completed [facility] SARS-COV-2 COVID-19 PFIZER VACCINE 2021-12-16 00:00:00 Completed [facility] SARS-COV-2 COVID-19 PFIZER VACCINE 2021-12-16 00:00:00 Completed [facility] SARS-COV-2 COVID-19 PFIZER VACCINE 2021-12-16 00:00:00 Completed [facility] SARS-COV-2 COVID-19 PFIZER VACCINE 2021-12-16 00:00:00 Completed [facility] SARS-COV-2 COVID-19 PFIZER VACCINE 2021-12-16 00:00:00 Completed [facility] SARS-COV-2 COVID-19 PFIZER VACCINE 2021-12-16 00:00:00 Completed [facility] SARS-COV-2 COVID-19 PFIZER VACCINE 2021-12-16 00:00:00 Completed [facility] SARS-COV-2 COVID-19 PFIZER VACCINE 2021-12-16 00:00:00 Completed [facility] SARS-COV-2 COVID-19 PFIZER VACCINE 2021-12-16 00:00:00 Completed [facility] SARS-COV-2 COVID-19 PFIZER VACCINE 2021-12-16 00:00:00 Completed [facility] SARS-COV-2 COVID-19 PFIZER VACCINE 2021-12-16 00:00:00 Completed [facility] SARS-COV-2 COVID-19 PFIZER VACCINE 2021-12-16 00:00:00 Completed [facility] SARS-COV-2 COVID-19 PFIZER VACCINE 2021-12-16 00:00:00 Completed SARS-COV-2 COVID-19 PFIZER DANYA-SUCROSE VACCINE (GAMING TOP) 2021-12-16 00:00:00 Completed SARS-COV-2 COVID-19 PFIZER VACCINE 2021-12-16 00:00:00 Completed [facility] SARS-COV-2 COVID-19 PFIZER VACCINE 2021-12-16 00:00:00 Completed [facility] SARS-COV-2 COVID-19 PFIZER VACCINE 2021-11-19 00:00:00 Completed [facility] SARS-COV-2 COVID-19 PFIZER VACCINE 2021-11-19 00:00:00 Completed [facility] SARS-COV-2 COVID-19 PFIZER VACCINE 2021-11-19 00:00:00 Completed [facility] SARS-COV-2 COVID-19 PFIZER VACCINE 2021-11-19 00:00:00 Completed [facility] SARS-COV-2 COVID-19 PFIZER VACCINE 2021-11-19 00:00:00 Completed [facility] SARS-COV-2 COVID-19 PFIZER VACCINE 2021-11-19 00:00:00 Completed [facility] SARS-COV-2 COVID-19 PFIZER VACCINE 2021-11-19 00:00:00 Completed [facility] SARS-COV-2 COVID-19 PFIZER VACCINE 2021-11-19 00:00:00 Completed [facility] SARS-COV-2 COVID-19 PFIZER VACCINE 2021-11-19 00:00:00 Completed [facility] SARS-COV-2 COVID-19 PFIZER VACCINE 2021-11-19 00:00:00 Completed [facility] SARS-COV-2 COVID-19 PFIZER VACCINE 2021-11-19 00:00:00 Completed [facility] SARS-COV-2 COVID-19 PFIZER VACCINE 2021-11-19 00:00:00 Completed [facility] SARS-COV-2 COVID-19 PFIZER VACCINE 2021-11-19 00:00:00 Completed [facility] SARS-COV-2 COVID-19 PFIZER VACCINE 2021-11-19 00:00:00 Completed [facility] SARS-COV-2 COVID-19 PFIZER VACCINE 2021-11-19 00:00:00 Completed [facility] SARS-COV-2 COVID-19 PFIZER VACCINE 2021-11-19 00:00:00 Completed [facility] SARS-COV-2 COVID-19 PFIZER VACCINE 2021-11-19 00:00:00 Completed [facility] SARS-COV-2 COVID-19 PFIZER VACCINE 2021-11-19 00:00:00 Completed [facility] SARS-COV-2 COVID-19 PFIZER VACCINE 2021-11-19 00:00:00 Completed [facility] SARS-COV-2 COVID-19 PFIZER VACCINE 2021-11-19 00:00:00 Completed [facility] SARS-COV-2 COVID-19 PFIZER VACCINE 2021-11-19 00:00:00 Completed [facility] SARS-COV-2 COVID-19 PFIZER VACCINE 2021-11-19 00:00:00 Completed [facility] SARS-COV-2 COVID-19 PFIZER VACCINE 2021-11-19 00:00:00 Completed [facility] SARS-COV-2 COVID-19 PFIZER VACCINE 2021-11-19 00:00:00 Completed [facility] SARS-COV-2 COVID-19 PFIZER VACCINE 2021-11-19 00:00:00 Completed [facility] SARS-COV-2 COVID-19 PFIZER VACCINE 2021-11-19 00:00:00 Completed [facility] SARS-COV-2 COVID-19 PFIZER VACCINE 2021-11-19 00:00:00 Completed [facility] SARS-COV-2 COVID-19 PFIZER VACCINE 2021-11-19 00:00:00 Completed [facility] SARS-COV-2 COVID-19 PFIZER VACCINE 2021-11-19 00:00:00 Completed [facility] SARS-COV-2 COVID-19 PFIZER VACCINE 2021-11-19 00:00:00 Completed [facility] SARS-COV-2 COVID-19 PFIZER VACCINE 2021-11-19 00:00:00 Completed [facility] SARS-COV-2 COVID-19 PFIZER VACCINE 2021-11-19 00:00:00 Completed [facility] SARS-COV-2 COVID-19 PFIZER VACCINE 2021-11-19 00:00:00 Completed [facility] SARS-COV-2 COVID-19 PFIZER DANYA-SUCROSE VACCINE (GAMING TOP) 2021-11-19 00:00:00 Completed [facility] SARS-COV-2 COVID-19 PFIZER VACCINE 2021-11-19 00:00:00 Completed [facility] SARS-COV-2 COVID-19 PFIZER VACCINE 2021-11-19 00:00:00 Completed [facility] TDAP 2021-03-03 00:00:00 Completed [facility] TDAP 2021-03-03 00:00:00 Completed [facility] TDAP 2021-03-03 00:00:00 Completed [facility] TDAP 2021-03-03 00:00:00 Completed [facility] TDAP 2021-03-03 00:00:00 Completed [facility] TDAP 2021-03-03 00:00:00 Completed [facility] TDAP 2021-03-03 00:00:00 Completed [facility] TDAP 2021-03-03 00:00:00 Completed [facility] TDAP 2021-03-03 00:00:00 Completed [facility] TDAP 2021-03-03 00:00:00 Completed [facility] TDAP 2021-03-03 00:00:00 Completed [facility] TDAP 2021-03-03 00:00:00 Completed [facility] TDAP 2021-03-03 00:00:00 Completed [facility] TDAP 2021-03-03 00:00:00 Completed [facility] TDAP 2021-03-03 00:00:00 Completed [facility] TDAP 2021-03-03 00:00:00 Completed [facility] TDAP 2021-03-03 00:00:00 Completed [facility] TDAP 2021-03-03 00:00:00 Completed [facility] TDAP 2021-03-03 00:00:00 Completed [facility] TDAP 2021-03-03 00:00:00 Completed [facility] TDAP 2021-03-03 00:00:00 Completed [facility] TDAP 2021-03-03 00:00:00 Completed [facility] TDAP 2021-03-03 00:00:00 Completed [facility] TDAP 2021-03-03 00:00:00 Completed [facility] TDAP 2021-03-03 00:00:00 Completed [facility] TDAP 2021-03-03 00:00:00 Completed [facility] TDAP 2021-03-03 00:00:00 Completed [facility] TDAP 2021-03-03 00:00:00 Completed [facility] TDAP 2021-03-03 00:00:00 Completed [facility] TDAP 2021-03-03 00:00:00 Completed [facility] TDAP 2021-03-03 00:00:00 Completed [facility] TDAP 2021-03-03 00:00:00 Completed [facility] TDAP 2021-03-03 00:00:00 Completed [facility] TDAP 2021-03-03 00:00:00 Completed [facility] TDAP 2021-03-03 00:00:00 Completed [facility] Influenza Virus Vaccine Quad .5 mL IM 6+ MO 2020-09-23 00:00:00 Completed [facility] Influenza Virus Vaccine Quad .5 mL IM 6+ MO 2020-09-23 00:00:00 Completed [facility] Influenza Virus Vaccine Quad .5 mL IM 6+ MO 2020-09-23 00:00:00 Completed [facility] Influenza Virus Vaccine Quad .5 mL IM 6+ MO 2020-09-23 00:00:00 Completed [facility] Influenza Virus Vaccine Quad .5 mL IM 6+ MO 2020-09-23 00:00:00 Completed [facility] Influenza Virus Vaccine Quad .5 mL IM 6+ MO (FLUZONE/FLULAVAL/F LUARIX) 2020-09-23 00:00:00 Completed Influenza Virus Vaccine Quad .5 mL IM 6+ MO 2020-09-23 00:00:00 Completed [facility] Influenza Virus Vaccine Quad .5 mL IM 6+ MO 2020-09-23 00:00:00 Completed [facility] Influenza Virus Vaccine Quad .5 mL IM 6+ MO 2020-09-23 00:00:00 Completed [facility] Influenza Virus Vaccine Quad .5 mL IM 6+ MO 2020-09-23 00:00:00 Completed [facility] Influenza Virus Vaccine Quad .5 mL IM 6+ MO 2020-09-23 00:00:00 Completed [facility] Influenza Virus Vaccine Quad .5 mL IM 6+ MO 2020-09-23 00:00:00 Completed [facility] Influenza Virus Vaccine Quad .5 mL IM 6+ MO 2020-09-23 00:00:00 Completed [facility] Influenza Virus Vaccine Quad .5 mL IM 6+ MO 2020-09-23 00:00:00 Completed [facility] Influenza Virus Vaccine Quad .5 mL IM 6+ MO 2020-09-23 00:00:00 Completed [facility] Influenza Virus Vaccine Quad .5 mL IM 6+ MO 2020-09-23 00:00:00 Completed [facility] Influenza Virus Vaccine Quad .5 mL IM 6+ MO 2020-09-23 00:00:00 Completed [facility] Influenza Virus Vaccine Quad .5 mL IM 6+ MO 2020-09-23 00:00:00 Completed [facility] Influenza Virus Vaccine Quad .5 mL IM 6+ MO 2020-09-23 00:00:00 Completed [facility] Influenza Virus Vaccine Quad .5 mL IM 6+ MO 2020-09-23 00:00:00 Completed [facility] Influenza Virus Vaccine Quad .5 mL IM 6+ MO 2020-09-23 00:00:00 Completed [facility] Influenza Virus Vaccine Quad .5 mL IM 6+ MO 2020-09-23 00:00:00 Completed [facility] Influenza Virus Vaccine Quad .5 mL IM 6+ MO 2020-09-23 00:00:00 Completed [facility] Influenza Virus Vaccine Quad .5 mL IM 6+ MO 2020-09-23 00:00:00 Completed [facility] Influenza Virus Vaccine Quad .5 mL IM 6+ MO 2020-09-23 00:00:00 Completed [facility] Influenza Virus Vaccine Quad .5 mL IM 6+ MO 2020-09-23 00:00:00 Completed [facility] Influenza Virus Vaccine Quad .5 mL IM 6+ MO 2020-09-23 00:00:00 Completed [facility] Influenza Virus Vaccine Quad .5 mL IM 6+ MO 2020-09-23 00:00:00 Completed [facility] Influenza Virus Vaccine Quad .5 mL IM 6+ MO 2020-09-23 00:00:00 Completed [facility] Influenza Virus Vaccine Quad .5 mL IM 6+ MO 2020-09-23 00:00:00 Completed [facility] Influenza Virus Vaccine Quad .5 mL IM 6+ MO 2020-09-23 00:00:00 Completed [facility] Influenza Virus Vaccine Quad .5 mL IM 6+ MO 2020-09-23 00:00:00 Completed [facility] Influenza Virus Vaccine Quad .5 mL IM 6+ MO 2020-09-23 00:00:00 Completed [facility] Influenza Virus Vaccine Quad .5 mL IM 6+ MO 2020-09-23 00:00:00 Completed [facility] Influenza Virus Vaccine Quad .5 mL IM 6+ MO 2020-09-23 00:00:00 Completed [facility] Influenza Virus Vaccine Quad .5 mL IM 6+ MO (FLUZONE/FLULAVAL/F LUARIX) Unknown Completed [facility] Influenza Virus Vaccine Quad .5 mL IM 6+ MO (FLUZONE/FLULAVAL/F LUARIX) Unknown Completed [facility] TDAP Unknown Completed [facility] Influenza Virus Vaccine Quad IM, Preserv and ABX Free 6 MO-64 YRS (FLUCELVAX) Unknown Completed [facility] SARS-COV-2 COVID-19 PFIZER VACCINE Unknown Completed [facility] Influenza Virus Vaccine Quad .5 mL IM 6+ MO (FLUZONE/FLULAVAL/F LUARIX) Unknown Completed [facility] TDAP Unknown Completed [facility] SARS-COV-2 COVID-19 PFIZER VACCINE Unknown Completed [facility] Influenza Virus Vaccine Quad IM, Preserv and ABX Free 6 MO-64 YRS (FLUCELVAX) Unknown Completed [facility] Influenza Virus Vaccine Quad .5 mL IM 6+ MO (FLUZONE/FLULAVAL/F LUARIX) Unknown Completed [facility] TDAP Unknown Completed [facility] SARS-COV-2 COVID-19 PFIZER VACCINE Unknown Completed [facility] Influenza Virus Vaccine Quad IM, Preserv and ABX Free 6 MO-64 YRS (FLUCELVAX) Unknown Completed [facility] SARS-COV-2 COVID-19 PFIZER DANYA-SUCROSE VACCINE (GAMING TOP) Unknown Completed [facility] Vital Signs Vital Name Observation Time Observation Value Comments S ource Body weight 2024-09-04 15:20:00 58.968 kg [facility]iff[facility] Systolic blood pressure 2024-08-27 20:01:52 116 mm[Hg] [facility] Diastolic blood pressure 2024-08-27 20:01:52 71 mm[Hg] [facility] Heart rate 2024-08-27 20:01:52 82 /min [facility] Body temperature 2024-08-27 20:01:52 37.39 Tali [facility] Respiratory rate 2024-08-27 20:01:52 18 /min [facility] Oxygen saturation in Arterial blood by Pulse oximetry 2024-08-27 20:01:52 99 /min [facility] Body height 2024-08-27 17:42:00 152.4 cm [facility] Body weight 2024-08-27 17:42:00 57.607 kg [facility] BMI 2024-08-27 17:42:00 24.80 kg/m2 [facility] Systolic blood pressure 2023-11-15 20:17:00 121 mm[Hg] [facility] Diastolic blood pressure 2023-11-15 20:17:00 77 mm[Hg] [facility] Heart rate 2023-11-15 20:17:00 79 /min [facility] Body temperature 2023-11-15 20:17:00 36.67 Tali [facility] Respiratory rate 2023-11-15 20:17:00 17 /min [facility] Body height 2023-11-15 20:17:00 149.9 cm [facility] Body weight 2023-11-15 20:17:00 56.881 kg [facility] BMI 2023-11-15 20:17:00 25.33 kg/m2 [facility] Systolic blood pressure 2023-02-27 18:06:00 111 mm[Hg] [facility] Diastolic blood pressure 2023-02-27 18:06:00 73 mm[Hg] [facility] Heart rate 2023-02-27 18:06:00 59 /min [facility] Body temperature 2023-02-27 18:06:00 36.72 Tali [facility] Respiratory rate 2023-02-27 18:06:00 18 /min [facility] Body height 2023-02-27 18:06:00 149.9 cm [facility] Body weight 2023-02-27 18:06:00 61.689 kg [facility] BMI 2023-02-27 18:06:00 27.47 kg/m2 [facility] Systolic blood pressure 2023-01-31 09:20:00 108 mm[Hg] [facility] Diastolic blood pressure 2023-01-31 09:20:00 70 mm[Hg] [facility] Heart rate 2023-01-31 09:20:00 60 /[facility] Body temperature 2023-01-31 09:20:00 36.67 Tali [facility] Respiratory rate 2023-01-31 09:20:00 18 /min [facility] Oxygen saturation in Arterial blood by Pulse oximetry 2023-01-31 09:20:00 100 /min [facility] Body height 2023-01-30 11:14:00 149.9 cm [facility] Body weight 2023-01-30 11:14:00 68.765 kg [facility] BMI 2023-01-30 11:14:00 30.62 kg/m2 [facility] Systolic blood pressure 2023-01-26 15:44:00 109 mm[Hg] [facility] Diastolic blood pressure 2023-01-26 15:44:00 71 mm[Hg] [facility] Heart rate 2023-01-26 15:44:00 80 /min [facility] Body temperature 2023-01-26 15:44:00 36.72 Tali [facility] Respiratory rate 2023-01-26 15:44:00 18 /min [facility] Body height 2023-01-26 15:44:00 149.9 cm [facility] Body weight 2023-01-26 15:44:00 68.493 kg [facility] BMI 2023-01-26 15:44:00 30.50 kg/m2 [facility] Systolic blood pressure 2023-01-23 18:22:00 110 mm[Hg] [facility] Diastolic blood pressure 2023-01-23 18:22:00 72 mm[Hg] [facility] Heart rate 2023-01-23 18:22:00 90 /min [facility] Body temperature 2023-01-23 18:22:00 36.83 Tali [facility] Respiratory rate 2023-01-23 18:22:00 18 /min [facility] Body height 2023-01-23 18:22:00 149.9 cm [facility] Body weight 2023-01-23 18:22:00 69.582 kg [facility] BMI 2023-01-23 18:22:00 30.98 kg/m2 [facility] Oxygen saturation in Arterial blood by Pulse oximetry 2023-01-23 18:22:00 99 /min [facility] Systolic blood pressure 2023-01-19 18:48:00 111 mm[Hg] [facility] Diastolic blood pressure 2023-01-19 18:48:00 68 mm[Hg] [facility] Heart rate 2023-01-19 18:48:00 81 /min [facility] Body temperature 2023-01-19 18:48:00 36.61 Tali [facility] Respiratory rate 2023-01-19 18:48:00 18 /min [facility] Body height 2023-01-19 18:48:00 149.9 cm [facility] Body weight 2023-01-19 18:48:00 69.037 kg [facility] BMI 2023-01-19 18:48:00 30.74 kg/m2 [facility] Oxygen saturation in Arterial blood by Pulse oximetry 2023-01-19 18:48:00 99 /min [facility] Systolic blood pressure 2023-01-12 16:09:00 100 mm[Hg] [facility] Diastolic blood pressure 2023-01-12 16:09:00 68 mm[Hg] [facility] Heart rate 2023-01-12 16:09:00 82 /min [facility] Body temperature 2023-01-12 16:09:00 36.39 Tali [facility] Body height 2023-01-12 16:09:00 149.9 cm [facility] Body weight 2023-01-12 16:09:00 68.312 kg [facility] BMI 2023-01-12 16:09:00 30.42 kg/m2 [facility] Systolic blood pressure 2023-01-05 19:03:00 104 mm[Hg] [facility] Diastolic blood pressure 2023-01-05 19:03:00 68 mm[Hg] [facility] Heart rate 2023-01-05 19:03:00 72 /min [facility] Body temperature 2023-01-05 19:03:00 36.72 Tali [facility] Body height 2023-01-05 19:03:00 149.9 cm [facility] Body weight 2023-01-05 19:03:00 67.858 kg [facility] BMI 2023-01-05 19:03:00 30.22 kg/m2 [facility] Systolic blood pressure 2022-12-29 15:41:00 115 mm[Hg] [facility] Diastolic blood pressure 2022-12-29 15:41:00 72 mm[Hg] [facility] Heart rate 2022-12-29 15:41:00 74 /min [facility] 2022-12-29 15:41:00 18 /min [facility] Body height 2022-12-29 15:41:00 149.9 cm [facility] weight 2022-12-29 15:41:00 66.679 [facility] 2022-12-29 15:41:00 29.69 kg/m2 [facility] Systolic blood pressure 2022-12-22 15:39:00 109 mm[Hg] [facility] Diastolic blood pressure 2022-12-22 15:39:00 72 mm[Hg] [facility] Heart rate 2022-12-22 15:39:00 67 /min [facility] Body temperature 2022-12-22 15:39:00 37.06 Tali [facility] Body height 2022-12-22 15:39:00 149.9 cm [facility] Body weight 2022-12-22 15:39:00 66.679 kg [facility] BMI 2022-12-22 15:39:00 29.69 kg/m2 [facility] Systolic blood pressure 2022-12-08 15:43:00 119 mm[Hg] [facility] Diastolic blood pressure 2022-12-08 15:43:00 78 mm[Hg] [facility] Heart rate 2022-12-08 15:43:00 125 /min [facility] Body temperature 2022-12-08 15:43:00 36.83 Tali [facility] Respiratory rate 2022-12-08 15:43:00 18 /min [facility] Body height 2022-12-08 15:43:00 151.1 cm [facility] weight 2022-12-08 15:43:00 65.681 [facility] 2022-12-08 15:43:00 28.76 kg/m2 [facility] Systolic blood pressure 2022-12-08 16:44:00 114 mm[Hg] [facility] Diastolic blood pressure 2022-12-08 16:44:00 75 mm[Hg] [facility] Heart rate 2022-12-08 16:44:00 116 /min [facility] Body temperature 2022-12-08 16:44:00 36.44 Tali [facility] Respiratory rate 2022-12-08 16:44:00 22 /min [facility] Body height 2022-12-08 16:44:00 149.9 cm [facility] Body weight 2022-12-08 16:44:00 67.132 kg [facility] BMI 2022-12-08 16:44:00 29.89 kg/m2 [facility] Oxygen saturation in Arterial blood by Pulse oximetry 2022-12-08 16:44:00 99 /min [facility] Heart rate 2022-12-07 03:52:00 74 /min [facility] Body temperature 2022-12-07 03:52:00 36.22 Tali [facility] Respiratory rate 2022-12-07 03:52:00 18 /min [facility] Body height 2022-12-07 03:52:00 149.9 cm [facility] Body weight 2022-12-07 03:52:00 67.132 kg [facility] BMI 2022-12-07 03:52:00 29.89 kg/m2 [facility] Oxygen saturation in Arterial blood by Pulse oximetry 2022-12-07 03:52:00 100 /min [facility] Systolic blood pressure 2022-12-07 03:41:00 130 mm[Hg] [facility] Diastolic blood pressure 2022-12-07 03:41:00 92 mm[Hg] [facility] Systolic blood pressure 2022-11-24 15:29:00 102 mm[Hg] [facility] Diastolic blood pressure 2022-11-24 15:29:00 68 mm[Hg] [facility] Heart rate 2022-11-24 15:29:00 74 /[facility] Body temperature 2022-11-24 15:29:00 36.56 Tali [facility] Respiratory rate 2022-11-24 15:29:00 18 /min [facility] Body height 2022-11-24 15:29:00 149.9 cm [facility] Body weight 2022-11-24 15:29:00 65.318 kg [facility] BMI 2022-11-24 15:29:00 29.08 kg/m2 [facility] Systolic blood pressure 2022-10-27 22:50:00 99 mm[Hg] [facility] Diastolic blood pressure 2022-10-27 22:50:00 63 mm[Hg] [facility] Heart rate 2022-10-27 22:50:00 59 /min [facility] Body temperature 2022-10-27 22:50:00 36.72 Tali [facility] Respiratory rate 2022-10-27 22:50:00 18 /min [facility] Body height 2022-10-27 22:50:00 149.9 cm [facility] Body weight 2022-10-27 22:50:00 63.05 kg [facility] BMI 2022-10-27 22:50:00 28.07 kg/m2 [facility] Systolic blood pressure 2022-09-21 22:46:00 106 mm[Hg] [facility] Diastolic blood pressure 2022-09-21 22:46:00 67 mm[Hg] [facility] Heart rate 2022-09-21 22:46:00 84 /min [facility] Body temperature 2022-09-21 22:46:00 37.06 Tali [facility] Respiratory rate 2022-09-21 22:46:00 18 /min [facility] Body height 2022-09-21 22:46:00 149.9 cm [facility] Body weight 2022-09-21 22:46:00 60.328 [facility] BMI 2022-09-21 22:46:00 26.86 kg/m2 [facility] Systolic blood pressure 2022-08-23 20:21:00 101 mm[Hg] [place] [facility] Diastolic blood pressure 2022-08-23 20:21:00 65 mm[Hg] [facility] Heart rate 2022-08-23 20:21:00 60 /min [facility] Body temperature 2022-08-23 20:21:00 36.5 Tali [facility] Body height 2022-08-23 20:21:00 149.9 cm [facility] Body weight 2022-08-23 20:21:00 56.518 kg [facility] BMI 2022-08-23 20:21:00 25.17 kg/m2 [facility] Systolic blood pressure 2022-07-26 17:13:00 99 mm[Hg] [place] [facility] Diastolic blood pressure 2022-07-26 17:13:00 63 mm[Hg] [facility] Heart rate 2022-07-26 17:13:00 61 /min [facility] Body temperature 2022-07-26 17:13:00 36.5 Tali [facility] Body height 2022-07-26 17:13:00 149.9 cm [facility] Body weight 2022-07-26 17:13:00 54.885 kg [facility] BMI 2022-07-26 17:13:00 24.44 kg/m2 [facility] Diastolic blood pressure 2022-06-27 17:05:00 69 mm[Hg] [place] [facility] Heart rate 2022-06-27 17:05:00 66 /min [facility] Body temperature 2022-06-27 17:05:00 36.67 Tali [facility] Respiratory rate 2022-06-27 17:05:00 16 /min [facility] Body height 2022-06-27 17:05:[address] [facility] Body weight 2022-06-27 17:05:[address] [facility] BMI 2022-06-27 17:05:00 24.04 kg/m2 [facility] Systolic blood pressure 2022-06-27 17:05:00 106 mm[Hg] [facility] Systolic blood pressure 2022-01-25 20:36:00 98 mm[Hg] [facility] Diastolic blood pressure 2022-01-25 20:36:00 67 mm[Hg] [facility] Heart rate 2022-01-25 20:36:00 64 /min [facility] Body temperature 2022-01-25 20:36:00 37 Tali [facility] Respiratory rate 2022-01-25 20:36:00 18 /min [facility] Body height 2022-01-25 20:36:00 149.9 cm [facility] Body weight 2022-01-25 20:36:00 54.885 kg [facility] BMI 2022-01-25 20:36:00 24.44 kg/m2 [facility] Procedures Procedure Date / Time Performed Performing Clinician Source CT ABDOMEN PELVIS WO CONTRAST 2024-08-27 18:58:28 Evangelist [facility] POCT TEST 2024-08-27 18:42:00 Evangelist [facility] URINALYSIS 2024-08-27 17:49:00 Francisco Javier Blanca [facility] CBC WITH DIFF 2023-01-31 09:17:00 Rehana [facility] CBC WITH DIFF 2023-01-30 08:37:00 Rehana [facility] HEPATITIS B SURFACE ANTIGEN 2023-01-30 08:37:00 Rehana [facility] HB ABO GROUPING 2023-01-30 08:37:00 Gladys Kim[facility] RHO (D) IMMUNE GLOBULIN 2023-01-30 08:37:00 Gladys Kimball [facility] ADC ONLY - FERN TEST 2023-01-30 08:37:00 [facility] - RPR 2023-01-30 08:37:00 Rehana Gladys [facility] HIV 1/2 AG-AB WITH REFLEX 2023-01-30 08:37:00 Gladys Kimball [facility] NON-STRESS TEST 2023-01-26 16:09:18 Gladys Kimball [facility] ASSIGNMENT OF BENEFITS 2023-01-26 15:25:36 Docto r Unassigned, [place] [facility] POCT URINALYSIS W/O SPECIFIC GRAVITY 2023-01-26 00:00:00 Gladys Kimball [facility] NON-STRESS TEST 2023-01-23 18:50:54 Gladys Kimball [facility] NON-STRESS TEST 2023-01-19 19:53:50 Gladys Kimball [facility] POCT URINALYSIS W/O SPECIFIC GRAVITY 2023-01-19 00:00:00 Gladys Kimball [facility] POCT URINALYSIS W/O SPECIFIC GRAVITY 2023-01-12 00:00:00 Gladys Kimball [facility] POCT URINALYSIS W/O SPECIFIC GRAVITY 2023-01-05 00:00:00 Gladys Kimball [facility] POCT URINALYSIS W/O SPECIFIC GRAVITY 2022-12-29 00:00:00 Lindsay Duke [facility] >14 WEEKS US LIMITED 2022-12-22 17:48:17 Gladys Kimball [facility] DSU PRE-OP 2022-12-22 05:01:00 Doctor Unass igned, [place] [facility] POCT URINALYSIS W/O SPECIFIC GRAVITY 2022-12-22 00:00:00 Gladys Kimball [facility] POCT MOLECULAR FLU 2022-12-08 17:18:00 [facility] 2022-12-08 17:14:00 Gladys Kimball [facility] POCT URINALYSIS 2022-12-08 16:49:00 Abhay Greenberg [facility] POCT URINALYSIS W/O SPECIFIC GRAVITY 2022-12-08 15:52:00 Gladys Kimball [facility] ASSIGNMENT OF BENEFITS 2022-12-07 03:32:52 Docto r Unassigned, [place] [facility] CONSENT/REFUSAL FOR DIAGNOSIS AND TREATMENT 2022-12-07 03:29:54 Doctor Unassigned, [place] [facility] PATIENT FINANCIAL POLICY 2022-11-24 15:24:33 Doctor Unassigned, [place] [facility] POCT URINALYSIS W/O SPECIFIC GRAVITY 2022-11-24 00:00:00 Anna Marie Houston [facility] POCT URINALYSIS W/O SPECIFIC GRAVITY 2022-10-27 00:00:00 Gladys Kimball [facility] POCT URINALYSIS W/O SPECIFIC GRAVITY 2022-09-21 00:00:00 Anna Marie Houston [facility] POCT URINALYSIS W/O SPECIFIC GRAVITY 2022-08-23 00:00:00 Gladys Kimball [facility] POCT URINALYSIS W/O SPECIFIC GRAVITY 2022-07-26 00:00:00 Anna Marie Houston [facility] <14 WEEKS US LIMITED 2022-06-28 03:10:08 Gladys Kimball [facility] FLU VACC ([id number]), 6 MO-64 YRS, .5ML, IM, QUAD (FLUCELVAX) 2022-06-27 18:30:19 Gladys Kimball [facility] URINE DRUG (IMMUNOASSAY) - COMPREHENSIVE DRUG SCREEN 2022-06-27 17:29:00 Gladys Kimball [facility] POCT TEST 2022-06-27 17:10:00 Gladys Kimball [facility] POCT URINALYSIS W/O SPECIFIC GRAVITY 2022-06-27 17:10:00 Gladys Kimball [facility] GERIATRIC PHYSICIAN CLINIC ULTRASOUND 2022-06-27 05:01:00 Doc tor Unassigned, [place] [facility] Encounters Start Date/Time End Date/Time Encounter Type Admission Type Attending [facility] Care Facility Care Department Encounter ID Source 2022-12-07 00:16:01 Outpatient X [facility] JORDYN [id number] [facility] 2021-07-19 07:38:03 Outpatient P [facility] JORD[facility] [id number] [facility] 2021-07-19 07:33:27 Outpatient P [facility] JORD[facility] [id number] [facility] 2024-09-04 09:55:00 2024-09-04 09:55:00 Outpatient LAB47 FARA FARA [id number] [facility] 2024-09-04 09:00:00 2024-09-04 09:00:00 Outpatient ROSEY PAGE [id number] [facility] 2024-08-27 11:45:00 2024-08-27 14:04:00 Emergency X FRANCISCO JAVIER BLANCA [facility] ERT [id number] [facility] 2024-08-27 11:45:00 2024-08-27 14:04:00 Emergency Francisco Javier Blanca [facility] 1..840.114 350.1.13.10 4.2.7.2.686 [id number] [facility] 2024-01-01 00:00:00 2024-01-01 00:00:00 Telephone Mendez, [facility] 1..840.114 350.1.13.10 4.2.7.2.686 [id number] [facility] 2023-11-17 00:00:00 2023-11-17 00:00:00 Case Management [facility] 1..840.114 350.1.13.10 4.2.7.2.686 [id number] 134 [id number] [facility] 2023-11-15 14:00:00 2023-11-15 14:38:00 Outpatient R GLADYS KIMBALL [facility] [id number] [facility] 2023-11-15 14:00:00 2023-11-15 14:38:00 [facility] 1..840.114 350.1.13.10 4.2.7.2.686 [id number] 134 [id number] [facility] 2023-03-29 15:30:00 2023-03-29 15:30:00 Outpatient R GLADYS KIMBALL [facility] [id number] [facility] 2023-02-27 13:00:00 2023-02-27 13:15:00 Routine Visit Anna Marie [place] [facility] PROFESSIO NAL BUILDING 1.2.840.114 350.1.13.10 4.2.7.2.686 [id number] 134 [id number] [facility] 2023-02-27 13:00:00 2023-02-27 13:00:00 Outpatient R ROSEMARIE [facility] [id number] [facility] 2023-01-30 03:16:00 2023-01-31 13:30:00 Inpatient X GLADYS KIMBALL [facility] JORDYN [id number] [facility] 2023-01-30 03:16:00 2023-01-31 13:30:00 Hospital Encounter Gladys Kimball [facility] 1..840.114 350.1.13.10 4.2.7.2.686 [id number] [facility] 2023-01-30 11:00:00 2023-01-30 11:00:00 Outpatient R GLADYS KIMBALL [facility] [id number] [facility] 2023-01-26 10:00:00 2023-01-26 11:11:50 Outpatient R REHANA [facility] [id number] [facility] 2023-01-26 10:00:00 2023-01-26 11:11:50 [facility] 1.2.840.114 350.1.13.10 4.2.7.2.686 [id number] 134 [id number] [facility] 2023-01-26 00:00:00 2023-01-26 00:00:00 Orders Only Doctor Unassigned, [place] [facility] 1.2.840.114 350.1.13.10 4.2.7.2.686 [id number] [facility] 2023-01-25 00:00:00 2023-01-25 00:00:00 Telephone [facility] 1.2.840.114 350.1.13.10 4.2.7.2.686 [id number] 134 [id number] [facility] 2023-01-23 13:00:00 2023-01-23 13:15:00 Routine Visit Room, [facility] Rehana [facility] BUILDING 1.2.840.114 350.1.13.10 4.2.7.2.686 [id number] 134 [id number] [facility] 2023-01-23 13:00:00 2023-01-23 13:00:00 Outpatient R REHANA [facility] [id number] [facility] 2023-01-19 13:00:00 2023-01-19 14:54:51 Outpatient R KIMBALL [facility] [id number] [facility] 2023-01-19 13:00:00 2023-01-19 14:54:51 Routine Visit Room, [facility] Rehana [facility] 1.2.840.114 350.1.13.10 4.2.7.2.686 [id number] 134 [id number] [facility] 2023 15:00:00 2023 15:00:00 Outpatient R KIMBALLGLADYS [facility] [id number] [facility] 2023 10:00:00 2023 10:00:00 Outpatient R [facility] [id number] [facility] 2023-01-12 11:00:00 2023-01-12 11:25:59 Outpatient R GLADYS KIMBALL [facility] [id number] [facility] 2023-01-12 11:00:00 2023-01-12 11:25:59 Routine Visit [facility] 1.2.840.114 350.1.13.10 4.2.7.2.686 [id number] 134 [id number] [facility] 2023-01-05 13:30:00 2023-01-05 14:15:00 Outpatient R GLADYS KIMBALL [facility] [id number] [facility] 2023-01-05 13:30:00 2023-01-05 14:15:00 Routine Visit Gladys Kimball [facility] 1..840.114 350.1.13.10 4.2.7.2.686 [id number] 134 [id number] [facility] 2023-01-05 00:00:00 2023-01-05 00:00:00 Refill Gladys Kimball [facility] BUILDING 1.2.840.114 350.1.13.10 4.2.7.2.686 [id number] 134 [id number] [facility] 2022-12-29 10:45:00 2022-12-29 10:56:30 Outpatient R LINDSAY DUKE CHERYAL [facility] [id number] [facility] 2022-12-29 10:45:00 2022-12-29 10:56:30 Routine Visit Lindsay Duke [facility] 1.840.114 350.1.13.10 4.2.7.2.686 [id number] 134 [id number] [facility] 2022-12-23 00:00:00 2022-12-23 00:00:00 Case Management Gladys Kimball [facility] 1.2840.114 350.1.13.10 4.2.7.2.686 [id number] 134 [id number] [facility] 2022-12-22 11:30:00 2022-12-22 11:45:00 Traffic Control Specialist Visit 2, Adc Lab Gladys Kimball [facility] 1.2840.114 350.1.13.10 4.2.7.2.686 [id number] [facility] 2022-12-22 10:30:00 2022-12-22 11:20:40 Outpatient R REHANA [facility] [id number] [facility] 2022-12-22 10:30:00 2022-12-22 11:20:40 Routine Visit Gladys Kimball [facility] 1.2840.114 350.1.13.10 4.2.7.2.686 [id number] 134 [id number] [facility] 2022-12-22 00:00:00 2022-12-22 00:00:00 Orders Only Doctor Unassigned, [place] [facility] 1.2840.114 350.1.13.10 4.2.7.2.686 [id number] [facility] 2022-12-15 11:30:00 2022-12-15 12:00:00 Traffic Control Specialist Visit Ultrasound, Ang-Mfm Gregg Aldridge [facility] GERIATRIC PHYSICIAN [facility] 1.2840.114 350.1.13.10 4.2.7.2.686 [id number] [facility] 2022-12-15 11:30:00 2022-12-15 11:30:00 Outpatient P GREGG ALDRIDGE [facility] [id number] [facility] 2022-12-09 00:00:00 2022-12-09 00:00:00 Letter (Out) Beverley Don [facility] 1.2.840.114 350.1.13.10 4.2.7.2.686 [id number] [facility] 2022-12-08 11:15:00 2022-12-08 12:44:32 Outpatient R JUAN HUA [facility] [id number] [facility] 2022-12-08 10:30:00 2022-12-08 11:52:56 Routine Visit Gladys Kimball [facility] PROFESSIO NAL BUILDING 1.2.840.114 350.1.13.10 4.2.7.2.686 [id number] 134 [id number] [facility] 2022-12-08 11:15:00 2022-12-08 11:35:00 Urgent Care Juan Hua Vien [facility] 1.2.840.114 350.1.13.10 4.2.7.2.686 [id number] [facility] 2022-12-06 22:42:00 2022-12-06 23:50:00 Outpatient X GLADYS KIMBALL [facility] JORDYN [id number] [facility] 2022-12-06 22:42:00 2022-12-06 23:50:00 Emergency Rehana Gladys [facility] 1.2.840.114 350.1.13.10 4.2.7.2.686 [id number] [facility] 2022-11-24 09:00:00 2022-11-24 10:10:14 Outpatient R ANNA MARIE [facility]ST[facility] [id number] [facility] 2022-11-24 09:00:00 2022-11-24 10:10:14 Routine Visit Vanaphan, [facility] BUILDING 1..840.114 350.1.13.10 4.2.7.2.686 [id number] 134 [id number] [facility] 2022-11-24 00:00:00 2022-11-24 00:00:00 Orders Only Doctor Unassigned, [place] [facility] 1.840.114 350.1.13.10 4.2.7.2.686 [id number] [facility] 2022-11-17 16:15:00 2022-11-17 16:15:00 Outpatient Natalee [facility] [id number] [facility] 2022-11-01 09:45:00 2022-11-01 10:00:00 Traffic Control Specialist Visit 2, Adc Lab Gladys Kimball [facility] 1..840.114 350.1.13.10 4.2.7.2.686 [id number] [facility] 2022-11-01 09:45:00 2022-11-01 09:45:00 Outpatient GLADYS VARGHESE [facility] [id number] [facility] 2022-10-28 13:15:00 2022-10-28 13:15:00 Outpatient Lavern [facility] [id number] [facility] 2022-10-27 16:00:00 2022-10-27 17:18:35 Outpatient ANNA MARIE RODRIGUEZ [facility] [id number] [facility] 2022-10-27 16:00:00 2022-10-27 17:18:35 Routine Visit Gladys Kimball [facility] 1..840.114 350.1.13.10 4.2.7.2.686 [id number] 134 [id number] [facility] 2022-10-19 11:00:00 2022-10-19 11:00:00 Outpatient GLADYS VARGHESE [facility] [id number] [facility] 2022-09-21 16:30:00 2022-09-21 16:55:11 Outpatient R ANNA MARIE [facility] [id number] [facility] 2022-09-21 16:30:00 2022-09-21 16:55:11 Routine Visit Anna Marie Houston [facility] 1.2.840.114 350.1.13.10 4.2.7.2.686 [id number] 134 [id number] [facility] 2022-09-20 13:30:00 2022-09-20 13:30:00 Outpatient R ROSEMARIE [facility] [id number] [facility] 2022-08-23 15:45:00 2022-08-23 15:45:00 Routine Visit Gladys Kimball O[facility] BUILDING 1.2.840.114 350.1.13.10 4.2.7.2.686 [id number] 134 [id number] [facility] 2022-08-23 13:30:00 2022-08-23 14:30:00 Traffic Control Specialist Visit Ultrasound, [facility] Fabio Boubacar F [facility] NAL BUILDING 1.2.840.114 350.1.13.10 4.2.7.2.686 [id number] 134 [id number] [facility] 2022-08-23 13:30:00 2022-08-23 14:13:18 Outpatient P FABIO, BOUBACAR [facility] [id number] [facility] 2022-08-15 10:30:00 2022-08-15 10:45:00 Traffic Control Specialist Visit 2, [facility] Lab Rosemarie [facility] NAL BUILDING 1.2.840.114 350.1.13.10 4.2.7.2.686 [id number] [facility] 2022-08-15 10:30:00 2022-08-15 10:30:00 Outpatient R ANNA MARIE [facility]STON [facility] [id number] [facility] 2022-08-01 10:00:00 2022-08-01 10:00:00 Outpatient R [facility] [id number] [facility] 2022-07-26 11:30:00 2022-07-26 11:50:32 Outpatient R ANNA MARIE [facility] [id number] [facility] 2022-07-26 11:30:00 2022-07-26 11:50:32 Routine Visit Anna Marie Houston [facility] 1.2.840.114 350.1.13.10 4.2.7.2.686 [id number] 134 [id number] [facility] 2022-07-26 00:00:00 2022-07-26 00:00:00 Telephone Gladys Kimball [facility] 1.2.840.114 350.1.13.10 4.2.7.2.686 [id number] 134 [id number] [facility] 2022-06-30 09:45:00 2022-06-30 09:57:57 Traffic Control Specialist Visit 2, Adc Lab Gladys Kimball [facility] 1.2.840.114 350.1.13.10 4.2.7.2.686 [id number] 353 [id number] [facility] 2022-06-30 09:45:00 2022-06-30 09:45:00 Outpatient R GLADYS KIMBALL [facility] [id number] [facility] 2022-06-29 09:00:00 2022-06-29 09:00:00 Outpatient R PATRIC KIMBALLEN [facility] [id number] [facility] 2022-06-28 10:30:00 2022-06-28 10:30:00 Outpatient R [facility] [id number] [facility] 2022-06-27 14:30:00 2022-06-27 14:30:00 Initial Visit Gladys Kimball [facility] 1.2.840.114 350.1.13.10 4.2.7.2.686 [id number] 134 [id number] [facility] 2022-06-27 14:30:00 2022-06-27 12:40:00 Outpatient R GLADYS KIMBALL [facility] [id number] [facility] 2022-06-27 00:00:00 2022-06-27 00:00:00 Orders Only Doctor Unassigned, [place] [facility] 1.840.114 350.1.13.10 4.2.7.2.686 [id number] [facility] 2022-02-08 15:00:00 2022-02-08 15:00:00 Outpatient R ROSEMARIE [facility] [id number] [facility] 2022-01-25 15:00:00 2022-01-25 15:51:48 Outpatient R ROSEMARIE [facility] [id number] [facility] 2022-01-25 15:00:00 2022-01-25 15:51:48 Office Visit Rosemarie [facility] 1..840.114 350.1.13.10 4.2.7.2.686 [id number] 134 [id number] [facility] 2022-01-25 15:00:00 2022-01-25 15:51:48 Outpatient R ROSEMARIE [facility] [id number] [facility] 2022-01-25 00:00:00 2022-01-25 00:00:00 Orders Only Doctor Unassigned, [place] [facility] 1.2.840.114 350.1.13.10 4.2.7.2.686 [id number] [facility] 2022-01-17 08:30:00 2022-01-17 08:30:00 Outpatient R ANNA MARIE [facility]STON [facility] [id number] [facility] 2021-09-09 11:15:00 2021-09-09 11:15:00 Outpatient R [facility] [id number] [facility] 2021-09-06 11:30:00 2021-09-06 11:45:00 Traffic Control Specialist Visit Pob, Adc Lab Main Silvio Jimbo [facility] PROFESSIO NAL BUILDING 1.2.840.114 350.1.13.10 4.2.7.2.686 [id number] 353 [id number] [facility] 2021-09-06 11:30:00 2021-09-06 11:30:00 Outpatient R JIMBO ANGUIANO [facility] [id number] [facility]ie [facility] 2021-09-06 00:00:00 2021-09-06 00:00:00 [facility] BU[facility] 1.2.840.114 350.1.13.10 4.2.7.2.686 [id number] 134 [id number] [facility] 2021-09-03 14:18:00 2021-09-03 18:09:00 Emergency X BURRELLYOHANNES [facility] ERT [id number] [facility] 2021-09-03 14:18:00 2021-09-03 18:09:00 Emergency Burrell Yohannes S [facility] 1.2.840.114 350.1.13.10 4.2.7.2.686 [id number] [facility] 2021-09-03 00:00:00 2021-09-03 00:00:00 Telephone Gladys Kimball [facility] PROFESSIO NAL BUILDING 1.2.840.114 350.1.13.10 4.2.7.2.686 [id number] 134 [id number] [facility] 2021-09-02 00:00:00 2021-09-02 00:00:00 Telephone Gladys [facility] BU[facility] 1.2.840.114 350.1.13.10 4.2.7.2.686 [id number] 134 [id number] [facility] 2021-08-17 09:00:00 2021-08-17 09:00:00 Outpatient Natalee [facility] [id number] [facility] 2021-07-20 11:25:11 2021-07-20 11:58:05 Routine Visit Gladys Kimball [facility] 1.2.840.114 350.1.13.10 4.2.7.2.686 [id number] 134 [id number] [facility] 2021-07-20 11:15:00 2021-07-20 11:58:05 Outpatient R ANNA MARIE [facility] [id number] [facility] 2021-06-14 13:15:00 2021-06-14 13:15:00 Outpatient R GLADYS KIMBALL [facility] [id number] [facility] 2021-06-07 13:15:00 2021-06-07 13:15:00 Outpatient R GLADYS KIMBALL [facility] [id number] [facility] 2021-05-17 13:28:15 2021-05-17 14:03:58 Routine Visit Gladys Kimball [facility] [id number] 350.1.13.10 4.2.7.2.686 [id number] [facility] 2021-05-17 13:15:00 2021-05-17 13:15:00 Outpatient R GLADYS KIMBALL [facility] [id number] [facility] 2021-05-07 14:13:00 2021-05-10 15:00:00 Hospital Encounter Jimbo Anguiano Vien Cam [facility] 1.2840.114 350.1.13.10 4.2.7.2.686 [id number] [facility] 2021-05-10 10:00:00 2021-05-10 10:00:00 Outpatient R [facility] [id number] [facility] 2021-05-08 08:57:00 2021-05-08 19:29:00 Anesthesia Event Fabrizio Stoner [facility] 1.2840.114 350.1.13.10 4.2.7.2.686 [id number] [facility] 2021-05-07 00:00:00 2021-05-07 00:00:00 Orders Only Doctor Unassigned, [place] [facility] [place] 1.284.114 350.1.13.10 4.2.7.2.686 [id number] [facility] 2021-05-05 10:08:05 2021-05-05 11:35:42 Routine Visit Room, [facility] Gayathri Pablo [facility] 1..84.114 350.1.13.10 4.2.7.2.686 [id number] 134 [id number] [facility] 2021-05-05 10:00:00 2021-05-05 10:00:00 Outpatient R [facility] [id number] [facility] 2021-04-28 14:13:20 2021-04-28 14:28:20 Routine Visit Gladys Kimball [facility] Professio nal Building 1.84.114 350.1.13.10 4.2.7.2.686 [id number] 134 [id number] [facility] 2021-04-28 14:15:00 2021-04-28 14:15:00 Outpatient R GLADYS KIMBALL [facility] [id number] [facility] 2021-04-21 09:09:44 2021-04-21 09:57:49 Routine Visit Gladys Kimball [facility] Pric[facility] Building 1.2.114 350.1.13.10 4.2.7.2.686 [id number] 134 [id number] [facility] 2021-04-21 09:15:00 2021-04-21 09:15:00 Outpatient R GLADYS KIMBALL [facility] [id number] [facility] 2021-04-14 16:52:32 2021-04-14 17:07:32 Traffic Control Specialist Visit Pob, Adc Lab Main Gladys Kimball [facility] Building 1.2.114 350.1.13.10 4.2.7.2.686 [id number] 353 [id number] [facility] 2021-04-14 15:30:19 2021-04-14 15:45:19 Routine Visit Gladys Kimball [facility] Building 1.2.114 350.1.13.10 4.2.7.2.686 [id number] 134 [id number] [facility] 2021-04-14 15:30:00 2021-04-14 15:30:00 [id number] 2021-04-14 00:00:00 2021-04-14 00:00:00 Orders Only Doctor Unassigned, [place] [facility] 1..114 350.1.13.10 4.2.7.2.686 [id number] 009 [id number] [facility] 2021-03-31 11:13:34 2021-03-31 12:14:41 Routine Visit Anna Marie [place] [facility] Building 1.2.114 350.1.13.10 4.2.7.2.686 [id number] 134 [id number] 2021-03-31 11:13:34 2021-03-31 12:14:41 Routine Visit Anna Marie [place] [facility] Building 1.2.840.114 350.1.13.10 4.2.7.2.686 [id number] 134 [id number] [facility] 2021-03-31 11:15:00 2021-03-31 11:15:00 Outpatient R ANNA MARIE HOUSTON [facility] [id number] [facility] 2021-03-29 13:54:00 2021-03-29 16:10:00 [facility] 1.2.840.114 350.1.13.10 4.2.7.2.686 [id number] 2021-03-29 13:54:00 2021-03-29 16:10:00 Hospital Encounter Gladys Kimball [facility] 1.2.840.114 350.1.13.10 4.2.7.2.686 [id number] [facility] 2021-03-29 00:00:00 2021-03-29 00:00:[address] [facility] Building 1.2.840.114 350.1.13.10 4.2.7.2.686 [id number] 134 [id number] 2021-03-29 00:00:00 2021-03-29 00:00:[address] [facility] Building 1.2.840.114 350.1.13.10 4.2.7.2.686 [id number] 134 [id number] [facility] 2021-03-18 09:58:42 2021-03-18 10:28:42 Traffic Control Specialist Visit Ultrasound, Adc Boubacar Rosario [facility] Building 1.2.840.114 350.1.13.10 4.2.7.2.686 [id number] 134 [id number] [facility] 2021-03-18 09:58:42 2021-03-18 10:28:42 Traffic Control Specialist Visit Ultrasound, [facility] Tristian Bueno nal Building 1.2.840.114 350.1.13.10 4.2.7.2.686 [id number] 134 [id number] 2021-03-18 10:00:00 2021-03-18 10:00:00 Outpatient P [facility] [id number] [facility] 2021-03-17 15:29:16 2021-03-17 16:15:59 Routine Visit Gladys Kimball [facility] [place] Pric[place] Bueno Pending [facility] to [facility] 1.2.840.114 350.1.13.10 4.2.7.2.686 [id number] 134 [id number] [facility] 2021-03-17 15:29:16 2021-03-17 16:15:59 Routine Visit Gladys Kimball [facility] Pricilla Bueno Pending sale to [facility] 1.2.840.114 350.1.13.10 4.2.7.2.686 [id number] 134 [id number] 2021-03-17 15:30:00 2021-03-17 15:30:00 Outpatient R GLADYS KIMBALL [facility] [id number] [facility] 2021-03-03 12:59:15 2021-03-03 13:33:49 Routine Visit Anna Marie [place] [facility] 1.2.840.114 350.1.13.10 4.2.7.2.686 [id number] 134 [id number] [facility] 2021-03-03 12:59:15 2021-03-03 13:33:49 Routine Visit Anna Marie [place] [facility] Building 1.2.840.114 350.1.13.10 4.2.7.2.686 [id number] 134 [id number] 2021-03-03 13:00:00 2021-03-03 13:00:00 Outpatient R NELIDAANNA MARIE STARR [facility] [id number] [facility] 2021-02-11 08:14:51 2021-02-11 08:29:51 Traffic Control Specialist Visit 2, Adc Lab Gladys Kimball [facility] 1.2.840.114 350.1.13.10 4.2.7.2.686 [id number] [facility] 2021-02-11 08:15:00 2021-02-11 08:15:00 Outpatient R REHANA GLADYS [facility] [id number] [facility] 2021-02-06 00:00:00 2021-02-06 00:00:00 Case Management Gladys Kimball [facility] 1.2.840.114 350.1.13.10 4.2.7.2.686 [id number] 134 [id number] [facility] 2021-02-05 14:52:29 2021-02-05 15:07:29 Traffic Control Specialist Visit 2, [facility] 1.2.840.114 350.1.13.10 4.2.7.2.686 [id number] 353 [id number] [facility] 2021-02-05 14:02:55 2021-02-05 14:32:55 Traffic Control Specialist Visit Ultrasound, [facility] 1.2.840.114 350.1.13.10 4.2.7.2.686 [id number] 134 [id number] [facility] 2021-02-05 14:00:00 2021-02-05 14:00:00 Outpatient R [facility] [id number] [facility] 2021-02-03 10:55:46 2021-02-03 11:54:21 Routine Visit Gladys Kimball [facility] 1.2.840.114 350.1.13.10 4.2.7.2.686 [id number] 134 [id number] [facility] 2021-02-03 10:30:00 2021-02-03 10:30:00 Outpatient R GLADYS KIMBALL [facility] [id number] [facility] 2021-01-06 10:14:21 2021-01-06 10:29:21 Routine Visit Rosemarie Anna Marie [facility] 1.2.840.114 350.1.13.10 4.2.7.2.686 [id number] 134 [id number] [facility] 2021-01-06 10:00:00 2021-01-06 10:00:00 Outpatient R ANNA MARIE HOUSTON [facility] [id number] [facility] 2020-12-21 00:00:00 2020-12-21 00:00:00 Patient Secure Msg Doctor Unassigned, [place] [facility] 1.2.840.114 350.1.13.10 4.2.7.2.686 [id number] [facility] 2020-12-21 00:00:00 2020-12-21 00:00:00 Telephone RosemarieAnna Marie [facility] 1.2.840.114 350.1.13.10 4.2.7.2.686 [id number] 134 [id number] [facility] 2020-12-18 13:04:13 2020-12-18 14:04:13 Traffic Control Specialist Visit Ultrasound, Adc MfGregg Chaudhry [facility] 1.2.840.114 350.1.13.10 4.2.7.2.686 [id number] 134 [id number] [facility] 2020-12-18 13:00:00 2020-12-18 13:00:00 Outpatient R [facility] [id number] [facility] 2020-12-09 10:59:17 2020-12-09 11:35:07 Routine Visit Gladys Kimball [facility] Tristian Bueno [facility] Building 1.2.840.114 350.1.13.10 4.2.7.2.686 [id number] 134 [id number] [facility] 2020-12-09 10:45:00 2020-12-09 10:45:00 Outpatient R GLADYS KIMBALL [facility] [id number] [facility] 2020-11-25 00:00:00 2020-11-25 00:00:00 Telephone Gladys Kimball [facility] 1.2.840.114 350.1.13.10 4.2.7.2.686 [id number] 134 [id number] [facility] 2020-11-19 00:00:00 2020-11-19 00:00:00 Telephone Gladys Kimball [facility] 1.2.840.114 350.1.13.10 4.2.7.2.686 [id number] 134 [id number] [facility] 2020-11-11 11:33:59 2020-11-11 11:48:59 Traffic Control Specialist Visit 2, Ad[facility] Lab [facility] 1.2.840.114 350.1.13.10 4.2.7.2.686 [id number] 353 [id number] [facility] 2020-11-11 09:58:27 2020-11-11 11:11:17 Routine Visit Anna Marie [place] [facility] Building 1.2.840.114 350.1.13.10 4.2.7.2.686 [id number] 134 [id number] [facility] 2020-11-11 09:45:00 2020-11-11 09:45:00 Outpatient R ANNA MARIE HOUSTON [facility] [id number] [facility] 2020-11-11 00:00:00 2020-11-11 00:00:00 Orders Only Doctor Unassigned, [place] [facility] 1.840.114 350.1.13.10 4.2.7.2.686 [id number] [facility] 2020-10-20 09:46:08 2020-10-20 10:01:08 Traffic Control Specialist Visit 2, Adc Lab Gladys Kimball [facility] 1..840.114 350.1.13.10 4.2.7.2.686 [id number] [facility] 2020-10-20 09:30:00 2020-10-20 09:30:00 Outpatient R GLADYS KIMBALL [facility] [id number] [facility] 2020-10-19 09:15:00 2020-10-19 09:15:00 Outpatient R GLADYS KIMBALL [facility] [id number] [facility] 2020-10-15 13:00:00 2020-10-15 13:00:00 Outpatient R [facility] [id number] [facility] 2020-10-14 15:30:00 2020-10-14 15:30:00 Outpatient R GLADYS KIMBALL [facility] [id number] [facility] 2020-10-14 14:07:50 2020-10-14 14:48:20 Routine Visit Gladys Kimball [facility] Pricilla [facility] [place] [place] 1..840.114 350.1.13.10 4.2.7.2.686 [id number] 134 [id number] [facility] 2020-09-28 00:00:00 2020-09-28 00:00:00 Case Management Gladys Kimball [facility] 1.2.840.114 350.1.13.10 4.2.7.2.686 [id number] 134 [id number] [facility] 2020-09-23 13:40:43 2020-09-23 15:08:02 Initial Visit Gladys Kimball [facility] 1.2.840.114 350.1.13.10 4.2.7.2.686 [id number] 134 [id number] [facility] 2020-09-23 14:00:00 2020-09-23 14:00:00 Outpatient R GLADYS KIMBALL [facility] [id number] [facility] 2020-09-23 00:00:00 2020-09-23 00:00:00 Orders Only Doctor Unassigned, [place] [address].2.840.114 350.1.13.10 4.2.7.2.686 [id number] [facility] 2019-09-23 00:00:00 2019-09-23 00:00:00 Orders Only Doctor Unassigned, [place] [address].2.840.114 350.1.13.10 4.2.7.2.686 [id number] [facility] 2006-10-13 00:00:00 2006-10-13 14:34:00 Outpatient [facility] [id number] [facility] Results Test Description Test Time Test Comments Results Resul t Comments Source CT Abdomen pelvis wo contrast 2024-08-18 0 19:49:40 ORDERING PHYSICIAN: FRANCISCO JAVIER BLANCA ABDOMEN AND PELVIS CT WITHOUT INTRAVENOUS CONTRAST. DATE: ?08/27/2024 12:15 PM CLINICAL INDICATIONS: ?Flank pain, kidney stone suspected. Left-sided flankpain. TECHNIQUE: ?Helical computed tomographic images of the abdomen and pelviswere obtained without intravenous contrast. The CT was obtained using ALARAguidelines, per department protocol. HS:Y. COMPARISON: ?None available FINDINGS: ?Liver, gallbladder, spleen, pancreas, adrenal glands and kidneys arenormal. There are no renal, ureteral or bladder stones. There is nohydronephrosis. Mild bladder wall thickening is seen. There are no dilated bowel loops. There is no bowel obstruction. Appendixis normal. There is mild stool in the colon. Uterus and ovaries are normalon noncontrast study. There is no free air, free fluid or adenopathy. Thereis a tiny fat-containing umbilical hernia. Lung bases are clear. Osseous structures are normal. No lytic or blasticlesions are seen. [facility] with [id number] 09:55:08* Test Item Value Reference Range Interpretation Comme nts WBC (test code = 6690-2) 11.52 See_Comment H [Automated Traxoa Interse] The system which generated this result transmitted reference range: 4.30 - 11.10 10*3/?L. The reference range was not used to interpret this result as normal/abnormal. RBC (test code = 789-8) 2.86 See_Comment L [Automated Traxoa Interse] The system which generated this result transmitted reference range: 3.93 - 5.25 10*6/?L. The reference range was not used to interpret this result as normal/abnormal. HGB (test code = 718-7) 8.0 g/dL 11.6-15.0 L HCT (test code = 4544-3) 25.8 % 35.7-45.2 L MCV (test code = 787-2) 90.2 fL 80.6-95.5 MCH (test code = 785-6) 28.0 pg 25.9-32.8 MCHC (test code = 786-4) 31.0 g/dL 31.6-35.1 L RDW-SD (test code = 07110-5) 49.5 fL 39.0-49.9 RDW-CV (test code = 788-0) 15.2 % 12.0-15.5 PLT (test code = 777-3) 242 See_Comment [Automated Traxoa Interse] The system which generated this result transmitted reference range: 166 - 358 10*3/?L. The reference range was not used to interpret this result as normal/abnormal. MPV (test code = 14881-8) 10.1 fL 9.5-12.9 NRBC/100 WBC (test code = 0277281738) 0.0 See_Comment [Automated me ssage] The system which generated this result transmitted reference range: 0.0 - 10.0 /100 WBCs. The reference range was not used to interpret this result as normal/abnormal. NRBC x10^3 (test code = 2652769652) See_Comment [Automated messa ge] The system which generated this result transmitted reference range: 10*3/?L. The reference range was not used to interpret this result as normal/abnormal. GRAN MAT (NEUT) % (test code = 770-8) 54.8 % IMM GRAN % (test code = 3545687434) 0.80 % LYMPH % (test code = 736-9) 32.6 % MONO % (test code = 5905-5) 9.9 % EOS % (test code = 713-8) 1.6 % BASO % (test code = 706-2) 0.3 % GRAN MAT x10^3(ANC) (test code = 4580140565) 6.31 10*3/uL 1.88-7.09 IMM GRAN x10^3 (test code = 3020008657) 0.09 10*3/uL 0.00-0.06 H LYMPH x10^3 (test code = 731-0) 3.76 10*3/uL 1.32-3.29 H MONO x10^3 (test code = 742-7) 1.14 10*3/uL 0.33-0.92 H EOS x10^3 (test code = 711-2) 0.19 10*3/uL 0.03-0.39 BASO x10^3 (test code = 704-7) 0.03 10*3/uL 0.01-0.07 Lab Interpretation (test code = 91303-7) Abnormal [facility] OR TIERRA ONLY - [id number] 05:37:46* Test Item Value Reference Range Interpretation Comme nts RPR (Qualitative) (test code = 67477-8) Nonreactive Nonreactive Lab Interpretation (test cod e = 14116-4) Normal [facility] Texas[facility]atitis B Surface [id number] 16:30:15 * Test Item Value Reference Range Interpretation Comme nts HBsAg Semi-Quantitative (yaneli t code = 5195-3) 0.05 Negative [facility] TexasRHO (D) IMMUNE [id number] 14:02:30* Test Item Value Reference Range Interpretation Comme nts RHIG CANDIDATE? (test code = 5188) No- see comment Patient is not a candidate for RhIg- Patient is Rh Positive.Performed at [facility] Laboratory Services - [facility] Blood [id number] [place] [id number] Free: [phone] No. [id number] [facility] TexasHIV 1/2 AG-AB WITH [id number] 11:10:32* Test Item Value Reference Range Interpretation Comme nts HIV Semi-quantitative (test code = 09334-8) 0.11 Negative DOMINIC (test code = DOMINIC) Non-reactive for HIV-1 antigen and HIV-1/HIV-2 antibodies. ?No laboratory evidence of HIV infection. ?Repeat in 2-4 weeks if acute HIV infection is suspected. [facility] TexasCBC with [id number] 08:51:23* Test Item Value Reference Range Interpretation Comme nts WBC (test code = 6690-2) 11.24 See_Comment H [Automated Traxoa ge] The system which generated this result transmitted reference range: 4.30 - 11.10 10*3/?L. The reference range was not used to interpret this result as normal/abnormal. RBC (test code = 789-8) 3.51 See_Comment L [Automated Traxoa ge] The system which generated this result [...] 31.9 g/dL 31.6-35.1 RDW-SD (test code = 67775-2) 48.1 fL 39.0-49.9 RDW-CV (test code = 788-0) 15.1 % 12.0-15.5 PLT (test code = 777-3) 280 See_Comment [Automated messa ge] The system which generated this result transmitted reference range: 166 - 358 10*3/?L. The reference range was not used to interpret this result as normal/abnormal. MPV (test code = 86427-1) 9.8 fL 9.5-12.9 NRBC/100 WBC (test code = 4685496685) 0.0 See_Comment [Automated [employer] ssage] The system which generated this result transmitted reference range: 0.0 - 10.0 /100 WBCs. The reference range was not used to interpret this result as normal/abnormal. NRBC x10^3 (test code = 4889464568) See_Comment [Automated messa ge] The system which generated this result transmitted reference range: 10*3/?L. The reference range was not used to interpret this result as normal/abnormal. GRAN MAT (NEUT) % (test code = 770-8) 49.9 % IMM GRAN % (test code = 8074047472) 0.80 % LYMPH % (test code = 736-9) 35.1 % MONO % (test code = 5905-5) 12.6 % EOS % (test code = 713-8) 1.2 % BASO % (test code = 706-2) 0.4 % GRAN MAT x10^3(ANC) (test code = 9843186955) 5.60 10*3/uL 1.88-7.09 IMM GRAN x10^3 (test code = 8565351201) 0.09 10*3/uL 0.00-0.06 H LYMPH x10^3 (test code = 731-0) 3.95 10*3/uL 1.32-3.29 H MONO x10^3 (test code = 742-7) 1.42 10*3/uL 0.33-0.92 H EOS x10^3 (test code = 711-2) 0.13 10*3/uL 0.03-0.39 BASO x10^3 (test code = 704-7) 0.05 10*3/uL 0.01-0.07 Lab Interpretation (test code = 71669-0) Abnormal [facility] TexasType and Screen - ONCE [id number] 08:47:00 * Test Item Value Reference Range Interpretation Comme nts ABO & RH (test code = 20) O Positive IAT (test code = 1185) Negative [facility] TexasPOCT URINALYSIS W/O SPECIFIC [id number] 15:46:00* Test Item Value Reference Range Interpretation [...] = 3257) n/a Negative - Negati ve [facility] TexasPOCT URINALYSIS W/O SPECIFIC [id number] 18:47:00* Test Item Value Reference Range Interpretation [...] = 3257) n/a Negative - Negati ve [facility] TexasPO[facility] URINALYSIS W/O SPECIFIC [id number] 16:06:00* Test Item Value Reference Range Interpretation [...] = 3257) 250 Negative - Negati ve [facility] URINALYSIS W/O SPECIFIC [id number] 19:01:00* Test Item Value Reference Range Interpretation [...] = 3257) n/a Negative - Negati ve [facility] URINALYSIS W/O SPECIFIC [id number] 15:44:00* Test Item Value Reference Range Interpretation [...] = 3257) N/A Negative - Negati ve [facility] URINALYSIS W/O SPECIFIC [id number] 15:37:00* Test Item Value Reference Range Interpretation [...] = 3257) n/a Negative - Negati ve [facility] MOLECULAR [id number] 17:30:16* Test Item Value Reference Range Interpretation Comme nts POCT Molecular FluA (test co de = 61570-9) Negative Negative POCT Molecular FluB (test co de = 41622-1) Negative Negative Lab Interpretation (test cod e = 87651-5) Normal [facility] MOLECULAR [id number] 17:22:42* Test Item Value Reference Range Interpretation Comme nts POCT Molecular Strep (test c ode = 21075-5) Negative Negative Lab Interpretation (test cod e = 76271-5) Normal [facility] URINALYSIS W SPECIFIC [id number] 16:49:00* Test Item Value Reference Range Interpretation [...] U APPEAR (test code = 3267) clear [facility] URINALYSIS W/O SPECIFIC [id number] 15:52:00* Test Item Value Reference Range Interpretation [...] internal controls Lab Interpretation (test code = 56155-5) Abnormal [facility] URINALYSIS W/O SPECIFIC [id number] 15:41:00* Test Item Value Reference Range Interpretation [...] = 3257) n/a Negative - Negati ve [facility] URINALYSIS W/O SPECIFIC [id number] 22:58:00* Test Item Value Reference Range Interpretation [...] = 3257) n/a Negative - Negati ve [facility] URINALYSIS W/O SPECIFIC [id number] 22:50:00* Test Item Value Reference Range Interpretation [...] = 3257) n/a Negative - Negati ve [facility] URINALYSIS W/O SPECIFIC [id number] 20:19:00* Test Item Value Reference Range Interpretation [...] code = 3257) Negative - Negati ve [facility] URINALYSIS W/O SPECIFIC [id number] 17:13:00* Test Item Value Reference Range Interpretation [...] code = 3257) Negative - Negati ve [facility] [id number] 17:10:00* Test Item Value Reference Range Interpretation Comme nts POCT PREG (test code = 1605) Positive On board controls acceptable with C Line (test code = 3574) Yes POCT PREG LOT # (test code = 3575) POCT PREG TEST DATE ( test code = 3576) [facility] UR[facility] W/O SPECIFIC [id number] 17:10:00* Test Item Value Reference Range Interpretation Comme nts POCT PH U (test code = 7754) N/A 5-8 POCT U LEUK EST (test code = 3263) N/A Negative - N egative POCT U NIT (test code = 3262) N/A Negative - Negati ve POCT U PROT (test code = 6739) NEG Negative - Negat susan POCT U GLU (test code = 1736) NEG Negative - Negati ve POCT U KETONE (test code = 0158) N/A Negative - Neg ative POCT U BLD (test code = 3257) N/A Negative - Negati ve [facility]
[2024-10-09] MEDS ORDERED: ACETAMINOPHEN 500 MG TAB ONE (16:57)
[2024-10-09] MEDS ORDERED: KETOROLAC 30 MG/ML INJ ONE (16:57)
[2024-10-09] MEDS ORDERED: predniSONE 20 MG TAB ONE (16:57)
[2024-10-09 17:19] LABS: SARS-CoV-2 Antigen CONTROL BLUE LINE VIS/BG OK; SARS-CoV-2 Antigen Rapid Res Negative (Negative)
--- NOTE | 2024-10-09 17:43 | RAD REPORT ---
EXAMINATION: ONE VIEW CHEST XR CLINICAL INDICATION: COUGH TECHNIQUE: Frontal chest projection is submitted. Examination is limited by patient positioning and t echnique. COMPARISON: 04/06/2010 FINDINGS: Bilateral interstitial prominence is present, greater on the right, likely representing bronchitis or underlying reactive airway disease. No focal consolidation typical pneumonia seen. The heart is upper limit of normal in size. No displaced fractures identified.
--- NOTE | 2024-10-09 17:48 | EDPHYS ---
Physician Documentation [facility] Name: Negar Bell Age: 29 yrs Sex: Female : 1995 Arrival Date: 10/09/2024 Time: 16:39 Bed 11 Private MD: ED Physician Ronen Dumont HPI: 10/09 17:05 This 29 yrs old Female presents to ER via Ambulatory with complaints of Body ec2 chills. 17:05 Patient arrives today for upper respiratory symptoms. Reports cough and congestion, ec2 sore throat, decreased p.o. intake as well as fevers and chills.. [employer] SALES: 17:56 LMP N/A - Irregular menses, Not me1 Historical: - Allergies: 16:46 No Known Allergies; ld1 - Home Meds: 16:46 None [Active]; ld1 - PMHx: 16:46 None; ld1 - PSHx: 16:46 None; ld1 - Immunization history:: Adult Immunizations up to date. - Infectious Disease History:: Denies. - Social history:: Smoking status: Patient denies any tobacco usage or history of. ROS: 17:05 Constitutional: as per hpi ec2 Exam: 17:05 Constitutional: GEN: NAD Head: atraumatic Eyes: EOMI Ears: External ears are ec2 normal. CV: Tachycardia. Lungs: No respiratory distress, no wheezes or rales or rhonchi. ABD: non-distended SKIN: no evidence of rashes MSK: no evidence of trauma Vital Signs: 16:44 BP 133 / 91; Pulse 106; Resp 18; Temp 99.1(TE); Pulse Ox 100% on R/A; Weight 55.79 kg; ld1 Height 5 ft. 4 in. ; Pain 0/10; 17:55 BP 127 / 84; Pulse 97; Resp 17; Temp 98.7; Pulse Ox 100% ; me1 16:44 Body Mass Index 21.11 (55.79 kg, 162.56 cm) ld1 16:44 Pain Scale: Adult ld1 MDM: 16:46 Medical Screening Exam initiated ec2 17:05 Data reviewed: vital signs, nurses notes. ED course: Patient arrives today for ec2 evaluation of upper respiratory symptoms. Examination reveals cardiopulmonary findings as above. Obtain viral swab, strep swab, chest x-ray. Suspect viral infection, additionally considered strep pharyngitis, pneumonia. I will treat the patient's symptoms as well.. 17:46 ED course: Chest x-ray shows no focal pneumonia, shows likely bronchitis. Will ec2 discharge home have the patient follow-up PCP. Return precautions given.. 10/09 16:46 Order name: Strep 1 10/09 16:46 Order name: SARS RAPID; Complete Time: 17:32 [facility] 10/09 16:46 Order name: Flu; Complete Time: 17:32 1 10/09 17:22 Order name: Throat Culture [facility] 10/09 17:00 Order name: CXR XRAY; Complete Time: 17:46 ec2 Administered Medications: 17:05 Drug: Acetaminophen PO 1000 mg PO once Route: PO; me1 17:48 Follow up: Response: No adverse reaction; Temperature is decreased; Pain is decreased me1 17:05 Drug: Ketorolac IM 30 mg IM once Route: IM; Site: left gluteus; me1 17:48 Follow up: Response: No adverse reaction; Pain is decreased me1 17:05 Drug: predniSONE PO 40 mg PO once Route: PO; me1 17:48 Follow up: Response: No adverse reaction me1 Disposition Summary: 10/09/24 17:47 Discharge Ordered Notes: Location: Home ec2 Condition: Stable ec2 Diagnosis - Viral infection, unspecified ec2 Followup: ec2 - With: Private Physician - When: - Reason: Re-evaluation by your physician Discharge Instructions: - Discharge Summary Sheet ec2 - Viral Illness, Adult ec2 Forms: - Medication Reconciliation Form ec2 - Antibiotic Education ec2 - Prescription Opioid Use ec2 - Patient Portal Instructions ec2 - Leadership Thank You Letter ec2 Prescriptions: - Zofran 4 mg Oral Tablet - take 1 tablet ORAL route every 12 hours As needed; 20 tablet; Refills: 0, ec2 Product Selection Permitted - Tessalon Perles 100 mg Oral Capsule - take 1 capsule ORAL route every 8 hours As needed; 15 capsule; Refills: 0, ec2 Product Selection Permitted Signatures: Dispatcher [employer] Aury Ulloa RN RN ld1 Amparo Baptiste RN RN ms1 Ronen Dumont MD MD ec2 Corrections: (The following items were deleted from the chart) 16:47 16:47 Group A Streptococcus Rapid Sc+BA.LAB.BRZ ordered. EDMS EDMS 16:47 16:47 SARS-COV-2 Antigen Rapid+I.LAB.BRZ ordered. EDMS EDMS 16:47 16:47 Influenza Screen (A \T\ B)+BA.LAB.BRZ ordered. EDMS EDMS
--- NOTE | 2024-10-09 17:48 | ER ---
Nurse's Notes [facility] Name: Negar Bell Age: 29 yrs Sex: Female : 1995 Arrival Date: 10/09/2024 Time: 16:39 Bed 11 Private MD: Diagnosis: Viral infection, unspecified Presentation: 10/09 16:44 Chief complaint: Patient states: fever, sore throat and body aches since Monday. ld1 Coronavirus screen: At this time, the client does not indicate any symptoms associated with coronavirus-19. Ebola Screen: No symptoms or risks identified at this time. Initial Sepsis Screen: Does the patient meet any 2 criteria? No. Patient's initial sepsis screen is negative. Does the patient have a suspected source of infection? No. Patient's initial sepsis screen is negative. Risk Assessment: Do you want to hurt yourself or someone else? Patient reports no desire to harm self or others. Onset of symptoms was October 09, 2024 at 16:46. 16:44 Method Of Arrival: Ambulatory ld1 16:44 Acuity: MURALI 4 ld1 Triage Assessment: 16:46 General: Appears in no apparent distress. comfortable, Behavior is calm, cooperative, ld1 appropriate for age. Pain: Denies pain. EENT: No signs and/or symptoms were reported regarding the EENT system. Neuro: Level of Consciousness is awake, alert, obeys commands. Cardiovascular: Capillary refill < 3 seconds Patient's skin is warm and dry. Respiratory: Airway is patent Respiratory effort is even, unlabored. GI: Abdomen is flat, non-distended. 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 - Infectious Disease History:: Denies. - Social history:: Smoking status: Patient denies any tobacco usage or history of. Screenin:55 [facility] ED Fall Risk Assessment (Adult) History of falling in the last 3 months, me1 including since admission No falls in past 3 months (0 pts) Confusion or Disorientation No (0 pts) Intoxicated or Sedated No (0 pts) Impaired Gait No (0 pts) Mobility Assist Device Used No (0 pt) Altered Elimination No (0 pt) Score/Fall Risk Level 0 - 2 = Low Risk Maintained a safe environment, Provided non-skid footwear, Hourly rounding (assess needs \T\ fall precautionary measures) done. Abuse screen: Denies threats or abuse. Nutritional screening: No deficits noted. Tuberculosis screening: No symptoms or risk factors identified. Assessment: 16:55 General: Appears ill, well groomed, well developed, well nourished, Behavior is calm, me1 cooperative, appropriate for age, Reports fever, sore throat and body aches since Monday. General: Reports fever for > 3 days. Pain: Complains of pain in throat Pain does not radiate. Pain currently is 4 out of 10 on a pain scale. Quality of pain is described as tender, Pain began 2-3 days ago. Is continuous. Neuro: Level of Consciousness is awake, alert, obeys commands, Oriented to person, place, time, situation, Appropriate for age. Cardiovascular: Patient's skin is warm and dry. Respiratory: Airway is patent Respiratory effort is even, unlabored, Respiratory pattern is regular, symmetrical. Respiratory: Reports cough that is. GI: No signs and/or symptoms were reported involving the gastrointestinal system. : No signs and/or symptoms were reported regarding the genitourinary system. EENT: No signs and/or symptoms were reported regarding the EENT system. Derm: No signs and/or symptoms reported regarding the dermatologic system. Musculoskeletal: No signs and/or symptoms reported regarding the musculoskeletal system. Vital Signs: 16:44 BP 133 / 91; Pulse 106; Resp 18; Temp 99.1(TE); Pulse Ox 100% on R/A; Weight 55.79 kg; ld1 Height 5 ft. 4 in. ; Pain 0/10; 17:55 BP 127 / 84; Pulse 97; Resp 17; Temp 98.7; Pulse Ox 100% ; me1 16:44 Body Mass Index 21.11 (55.79 kg, 162.56 cm) ld1 16:44 Pain Scale: Adult ld1 ED Course: 16:41 Patient arrived in ED. ra3 16:42 Ronen Dumont MD is Attending Physician. ec2 16:46 Triage completed. ld1 16:49 Arm band placed on right wrist. ld1 16:55 Amparo Bapitste, RN is Primary Nurse. me1 16:55 Patient has correct armband on for positive identification. Bed in low position. Call me1 light in reach. Side rails up X2. Provided Education on: POC. Verbalized understanding.. 16:55 No provider procedures requiring assistance completed. Patient did not have IV access me1 during this emergency room visit. 17:31 CXR XRAY In Process Unspecified. EDMS Administered Medications: 17:05 Drug: Acetaminophen PO 1000 mg PO once Route: PO; me1 17:48 Follow up: Response: No adverse reaction; Temperature is decreased; Pain is decreased me1 17:05 Drug: Ketorolac IM 30 mg IM once Route: IM; Site: left gluteus; me1 17:48 Follow up: Response: No adverse reaction; Pain is decreased me1 17:05 Drug: predniSONE PO 40 mg PO once Route: PO; me1 17:48 Follow up: Response: No adverse reaction me1 Medication: 16:55 VIS not applicable for this client. me1 Outcome: 17:47 Discharge ordered by . ec2 17:56 Discharged to home ambulatory, me1 17:56 Condition: stable 17:56 Discharge instructions given to patient, Instructed on discharge instructions, follow me1 up and referral plans. medication usage, Demonstrated understanding of instructions, follow-up care, medications, Prescriptions given X 2, 17:57 Patient left the ED. me1 Signatures: Dispatcher [employer] [facility]SC Aury Og RN RN ld1 Amparo Baptiste, JAVIER RN me1 Ronen Dumont MD MD ec2 Norma Whitten ra3 Corrections: (The following items were deleted from the chart) 17:53 16:44 Chief complaint: Patient states: fever, sore throat and body aches since Monday me1 ld1 17:57 17:56 Discharge instructions given to patient, Instructed on discharge instructions, me1 follow up and referral plans. Demonstrated understanding of instructions, follow-up care, me1
[2024-10-09 20:21] VITALS: O2SAT 100
[2024-10-09 20:26] VITALS: BP 127/84; TEMP 98.7
== END 2024-10-09 17:57 | disposition home or self-care (01) ==
LOC: ER 16:39
DX: B34.9 Viral infection, unspecified (principal); Z11.52 Encounter for screening for COVID-19
CPT/HCPCS: 36415; 71045; 87070; 87081; 87804; 87811; J7512